=== PATIENT | female | born 1955 | race Two or more races ===

== ENCOUNTER → 2019-12-28 | Outpatient (CLI) | payer OTHER ==
[2019-12-28 13:36] LABS: Basophils # (auto) 0.1 10 ^3/uL (0-0.2); Eosinophils # (auto) 0.3 10 ^3/uL (0-0.8); Eosinophils % (auto) 4.7 % (0.0-7.0); Hematocrit 40.1 % (36.0-46.0); Lymphocytes # (auto) 1.7 10 ^3/uL (0.4-5.4); Lymphocytes % (auto) 30.6 % (10.0-50.0); Mean Corpuscular Hemoglobin 32.3 pg (28.0-32.0); Mean Corpuscular Volume 92.4 fL (80.0-100.0); Monocytes # (auto) 0.6 10 ^3/uL (0-1.3); Monocytes % (auto) 10.1 % (0.0-12.0); Neutrophils % (auto) 53.6 % (37.0-80.0); Nucleated Red Blood Cells % 0.1 %; Platelet Count (auto) 307 10^3/uL (140-450); Red Blood Cells 4.34 10^6/uL (4.0-5.20); Red Cell Distribution Width 12.9 % (11.8-14.3); White Blood Cell 5.5 10^3/uL (4.4-10.8)
[2019-12-28 13:44] LABS: Urine Bacteria FEW /hpf (None Seen); Urine Blood Negative /uL (Negative); Urine Specific Gravity 1.016 (1.001-1.035); Urine WBC 1 /hpf (0 - 5)
[2019-12-28 14:00] LABS: Albumin 3.9 g/dL (3.4-5.0); Calcium 9.5 mg/dL (8.5-10.1); Potassium 4.1 mmol/L (3.5-5.1)
[2019-12-28 14:04] LABS: BUN/Creatinine Ratio 12.3; Bilirubin, Total 0.4 mg/dL (0.2-1.0); Total Protein 7.6 g/dL (6.4-8.2)
== END | disposition home or self-care (01) ==
LOC: LAB 13:04
PROVIDERS: ATTEND Internal Medicine Nephrology
DX: I10 Essential (primary) hypertension (principal); R01.1 Cardiac murmur, unspecified
CPT/HCPCS: 36415; 80053; 80061; 81001; 84443; 85025

== ENCOUNTER 2020-07-24 09:26 | Inpatient (IN) | payer MEDICAID, OTHER ==
[~2020-07-24] VITALS: Ht 165.1 cm; Wt 63.9 kg
[2020-07-24] MEDS ORDERED: cefTRIAXone 1GM/50ML D5W 50 ML IV ONE (10:15)
[2020-07-24] MEDS ORDERED: AZITHROMYCIN 500MG/ 250ML 250 ML IV ONE (10:15)
[2020-07-24 11:17] LABS: Basophils # (auto) 0.1 10 ^3/uL (0-0.2)
[2020-07-24 11:23] LABS: Basophils % (auto) 0.3 % (0.0-2.0); Eosinophils # (auto) 0 10 ^3/uL (0-0.8); Eosinophils % (auto) 0.2 % (0.0-7.0); Hematocrit 39.3 % (36.0-46.0); Lymphocytes # (auto) 0.6 10 ^3/uL (0.4-5.4); Mean Corpuscular Hgb Conc. 33.1 g/dL (32.0-36.0); Mean Corpuscular Volume 93.6 fL (80.0-100.0); Monocytes # (auto) 0.9 10 ^3/uL (0-1.3); Neutrophils # (auto) 13.5 10 ^3/uL (1.6-8.6); Neutrophils % (auto) 89.5 % (37.0-80.0); Nucleated Red Blood Cells % 0.2 %; Platelet Count (auto) 475 10^3/uL (140-450); Red Cell Distribution Width 14.3 % (11.8-14.3); White Blood Cell 15.1 10^3/uL (4.4-10.8)
[2020-07-24 11:39] LABS: Chloride 104 mmol/L (98-107); Potassium 3.2 mmol/L (3.5-5.1); Sodium 136 mmol/L (136-145)
[2020-07-24 11:45] LABS: INR 1.18 (0.9-1.15); Partial Thromboplastin Time 25.3 sec (23.0-31.2)
[2020-07-24 11:51] LABS: Lactic Acid w/Reflex 2.1 mmol/L (0.4-2.0)
[2020-07-24 11:53] LABS: Alanine Aminotransferase 23 U/L (13-56); Albumin 2.2 g/dL (3.4-5.0); Alkaline Phosphatase 83 U/L (45-117); Anion Gap 8 (5-15); Aspartate Aminotransferase 33 U/L (15-37); BUN/Creatinine Ratio 17.5; Bilirubin, Total 0.5 mg/dL (0.2-1.0); Blood Urea Nitrogen 10 mg/dL (7-18); Calcium 8.7 mg/dL (8.5-10.1); Carbon Dioxide 24 mmol/L (21-32); GFR African American 138 mL/min; GFR Non-African American 114 mL/min; Glucose 217 mg/dL (74-106); Total Protein 7.2 g/dL (6.4-8.2)
[2020-07-24] MEDS ORDERED: SODIUM CHLORIDE 0.9% 1,000 ML IV ONE (13:15)
[2020-07-24] MEDS ORDERED: VANCOMYCIN PER PHARMACY 0 MG IV SCH (13:15)
[2020-07-24] MEDS ORDERED: MORPHINE SULF INJ 2 MG/ML SYRINGE 1ML IV PRN (13:15)
[2020-07-24] MEDS ORDERED: NITROGLYCERIN 0.4 MG SL TAB SL PRN (13:15)
[2020-07-24] MEDS ORDERED: VANCOMYCIN 1GM/250ML 250 ML IV ONE (13:45)
[2020-07-24] MEDS ORDERED: ACETAMINOPHEN 500 MG TAB PO PRN (14:30)
[2020-07-24] MEDS ORDERED: ONDANSETRON HCL 4 MG/2 ML VIAL IV PRN (14:30)
[2020-07-24] MEDS ORDERED: POTASSIUM EFFERVESENT TAB 25 MEQ ONE (14:39)
[2020-07-24] MEDS ORDERED: POTASSIUM EFFERVESENT TAB 25 MEQ PO ONE (14:45)
[2020-07-24 15:13] VITALS: BP 152/62
[2020-07-24 18:05] VITALS: BP 156/65
[2020-07-24] MEDS: methylPREDNISolone SOD SUCC 40 MG/ML VL IV SCH ×2 (18:33→23:46)
[2020-07-24] MEDS: LORazepam 2MG/ML-1ML VIAL IV PRN (18:34)
[2020-07-24] MEDS: ALBUTEROL SULF 2.5 MG/0.5ML(0.5%) NEB SOLN NEB SCH (19:15)
[2020-07-24] MEDS: PIPERACILLIN-TAZOB 3.375GM 100 ML IV SCH ×2 (20:56→23:46)
--- NOTE | 2020-07-24 22:45 | NUR ---
RECEIVED PATIENT FROM ED TO [facility] ROOM 261 RECEIVED PATIENT BY BED ON PORTABLE OXYGEN AND HEMODYNAMIC MONITOR, TRANSPORTED BY PRIVATE DUTY NURSE AND ATTENDING RT. TRANSFERRED FROM ONE BED TO ANOTHER WITH MINIMUM ASSISTANCE, NOTED INCREASED SOB WITH ACTIVITY, RR 29. PATIENT WAS PLACED ON 12L OXYMIZER WALL, SPO2 92%. PATIENT ORIENTED TO SURROUNDINGS, PLACED ON HEMODYNAMIC MONITOR, EDUCATED PATIENT ON HOW TO USE CALL LIGHT, PATIENT VERBALIZED UNDERSTANDING. PERFORMED ASSESSMENT, EDUCATED ON POC, AOX4. PATIENT PATIENT REPORTED CHRONIC DULL PAIN LOCALIZED TO NECK 3/10 STATED IT IS FROM [place]TH[place], DOES NOT WANT ANY PAIN MEDICATION AT THIS TIME. BED IN LOWEST POSITION, BED RAILS X2, SET UP YANKER, EDUCATED HER ON HOW TO USE IT. PLACED ON AIRBORNE ISO PRECAUTION WHILE COVID RESULTS ARE PENDING, PATIENT VERBALIZED UNDERSTANDING FOR ISOLATION REASONS. WENT OVER PATIENTS BELONGING WITH PATIENT, ALL BELONGINGS ARE WITH HER EXCEPT FOR CHARGING WIRE, WILL CONTACT ED. WILL CONTINUE TO MONITOR, PATIENT IS VISUALIZED FROM NURSING STATION AT ALL TIMES.
[2020-07-24 22:46] VITALS: BP 159/68
[2020-07-24 23:00] VITALS: BP 157/68
[2020-07-24 23:15] VITALS: BP 190/85
[2020-07-24 23:30] VITALS: BP 159/65
[2020-07-25] VITALS (13 sets, daily range): BP systolic 112–178; BP diastolic 54–93
--- NOTE | 2020-07-25 01:06 | NUR ---
PATIENT DESATURATING LOW 60% WITH PHYSICAL ACTIVITY PATIENT TRANSFERRED TO BEDSIDE COMMODE WITH MINIMUM ASSISTANCE. HR WENT HIGH 120 AND SPO2 DROPPED LOW 60'S WITH GOOD WAVEFORM. TAKES ABOUT 10 MIN TO RECOVER BACK TO 90%. HOB 45 DEGREES. CLEAR LUNG SOUNDS. NOTED SHORTNESS OF BREATH WITH ACTIVITY, NON LABORED BREATHING. Addendum: 07/25/20 at 0112 by JOSE PEREZ RN ADDITIONAL INFORMATION, PATIENT IS ON 12L OXYMIZER.
[2020-07-25] MEDS: VANCOMYCIN 1GM/250ML 250 ML IV SCH ×2 (03:00→19:06)
[2020-07-25 03:20] LABS: Basophils # (auto) 0 10 ^3/uL (0-0.2); Basophils % (auto) 0.1 % (0.0-2.0); Eosinophils # (auto) 0 10 ^3/uL (0-0.8); Hematocrit 36.1 % (36.0-46.0); Hemoglobin 11.7 g/dL (12.2-16.2); Lymphocytes # (auto) 0.5 10 ^3/uL (0.4-5.4); Lymphocytes % (auto) 3.5 % (10.0-50.0); Mean Corpuscular Hemoglobin 29.9 pg (28.0-32.0); Mean Corpuscular Hgb Conc. 32.5 g/dL (32.0-36.0); Mean Corpuscular Volume 91.8 fL (80.0-100.0); Monocytes # (auto) 0.3 10 ^3/uL (0-1.3); Monocytes % (auto) 2.1 % (0.0-12.0); Neutrophils # (auto) 12.5 10 ^3/uL (1.6-8.6); Neutrophils % (auto) 94.3 % (37.0-80.0); Platelet Count (auto) 442 10^3/uL (140-450); Red Blood Cells 3.93 10^6/uL (4.0-5.20); Red Cell Distribution Width 14.4 % (11.8-14.3); White Blood Cell 13.2 10^3/uL (4.4-10.8)
[2020-07-25 03:37] LABS: Albumin 2.1 g/dL (3.4-5.0); Potassium 3.4 mmol/L (3.5-5.1)
[2020-07-25 03:42] LABS: BUN/Creatinine Ratio 14.5; Bilirubin, Total 0.5 mg/dL (0.2-1.0); Total Protein 6.8 g/dL (6.4-8.2)
[2020-07-25] MEDS: methylPREDNISolone SOD SUCC 40 MG/ML VL IV SCH ×3 (05:42→13:55)
[2020-07-25] MEDS: PIPERACILLIN-TAZOB 3.375GM 100 ML IV SCH ×3 (05:43→19:07)
[2020-07-25] MEDS: ALBUTEROL SULF 2.5 MG/0.5ML(0.5%) NEB SOLN NEB SCH ×3 (06:32→12:39)
--- NOTE | 2020-07-25 06:39 | NUR ---
RT AT BEDSIDE BREATHING TREATMENT
--- NOTE | 2020-07-25 06:40 | NUR ---
PATIENT SLEEPING PATIENT SLEPT FROM ABOUT 0200 TO 0600, SPO2 MAINTAINED AT 93% 12L OXYMIZER.
--- NOTE | 2020-07-25 06:48 | NUR ---
ADMISSION NOTE PER PATIENT KIRILL (GRAND DAUGHTER [phone]) CAN PROVIDE MEDICATION LIST. PATIENT CAN NOT ANSWER WHICH IMMUNIZATION SHE GOT BEFORE.
--- NOTE | 2020-07-25 07:10 | NUR ---
PATIENT DESATURATED TO LOW 60 PATIENT WAS TRANSFERRED TO BEDSIDE COMMODE WHERE SHE DESATURATED TO LOW 60, HR INCREASED ABOVE 110'S. OXYMIZER INCREASED TO 15L FROM 12L, SOB WORSENS WITH ACTIVITY. CONTINUE MONITORING.
--- NOTE | 2020-07-25 08:29 | NUR ---
PAGED DR. MYLES ASKING IF IT WAS OK TO INSERT A FC TO PT. TO DECREASE OXYGEN DEMAND. I INFORM HIM THAT PT IS ON OXYMIZER AND PT DESATURATES TO THE LOW 70'S WHEN GETTING OUT OB BED TO URINATE TO BSC WHICH IS QUITE FREQUENTLY.
--- NOTE | 2020-07-25 08:50 | NUR ---
Respiratory note: PT PLACED ON HFNC PER DR SEXTON ORDER. 60L FLOW, 100%. WATER LEVEL ADEQUATE. PT DISLIKES THE HIGH FLOW, HOWEVER PREFERS HFNC, RATHER THAN BIPAP. PT TOLERATING BIPAP WELL. RN AWARE. WILL CONTINUE TO MONITOR PT.
[2020-07-25] MEDS ORDERED: POTASSIUM CHLORIDE 40 MEQ, LIDOCAINE 1% (LOCAL ANESTH.) 4 ML in SODIUM CHL 0.9% 250 ML IV ONE (09:00)
[2020-07-25] MEDS: LORazepam 2MG/ML-1ML VIAL IV PRN ×2 (09:08→20:31)
[2020-07-25] MEDS: MORPHINE SULF INJ 2 MG/ML SYRINGE 1ML IV PRN ×2 (09:39→12:19)
[2020-07-25] MEDS: LISINOPRIL 10 MG TAB PO SCH (09:44)
[2020-07-25] MEDS: FAMOTIDINE (10MG/ML) 2ML VL IV SCH (09:44)
--- NOTE | 2020-07-25 09:54 | NUR ---
PT NPO FOR CT ANGIO WITH CONTRAST
--- NOTE | 2020-07-25 09:54 | NUR ---
16 FR FC INSERTED PT TOLERATED WELL.
[2020-07-25] MEDS ORDERED: ENOXAPARIN SOD 40 MG/0.4 ML SYRINGE SC SCH (10:00)
[2020-07-25] MEDS ORDERED: FUROSEMIDE 20 MG/2 ML VIAL IV ONE (11:30)
--- NOTE | 2020-07-25 11:51 | NUR ---
ASSISTED TO PRONING PT WAS DESATURATING DUE TO HIGH FLOW POPPING OUT OF PLACE AND SHE WAS NOT RECEIVING OXYGENATION. I PLACE HER IN HIGH FLOW AND IT TOOK HER A WHILE TO RECOVER. CT WILL BE DOWN FOR ONE WEEK. DR. DARSHAN KINNEY.
--- NOTE | 2020-07-25 12:42 | NUR ---
COVID TEST COLLECTED AND SENT TO LAB. PT IS ISOLATED FOR COVID.
--- NOTE | 2020-07-25 16:00 | NUR ---
DR. MYLES IN TO SEE PT. I UPDATED HIM ON PT'S CONDITION. NO NEW ORDERS RECEIVED AT THIS TIME.
--- NOTE | 2020-07-25 17:30 | NUR ---
PATIENT APPEARS UNSTABLE FOR CT CHEST - ON HIGH FLOW FIO2 100% FIO2 AND 60L O2, SPOKE TO DELMY JARVIS - AGREES WITH MECHANICAL ENGINEERING INTERN.
--- NOTE | 2020-07-25 19:40 | NUR ---
OPENING NOTE REPORT RECEIVED FROM MIGUEL RN. THIS IS A POSITIVE COVID PATIENT ON NOVEL RESPIRATORY ISOLATION. PATIENT IS A/OX3 WITH PERIODS OF CONFUSION. PATIENT CONNECTED TO BEDSIDE MONITORS, HEART RATE IN LOW 100'S, SPO2 IN LOW 90'S. PATIENT IS ON HIGH FLOW NASAL CANNULA 70L, FIO2 100%. PHYSICAL ASSESSMENT DONE-SEE INTERVENTIONS. TELLEZ IN PLACE DRAINING CLEAR YELLOW URINE TO GRAVITY. SKIN INTACT. RIGHT FOREARM SKIN LESION NOTED, INTACT. PERIPHERAL IV TO LEFT HAND INTACT AND PATENT. POC DISCUSSED WITH PATIENT, ALL QUESTION ANSWERED, FALL PRECAUTIONS IN PLACE.
--- NOTE | 2020-07-25 20:35 | NUR ---
FAMILY PATIENTS GRAND DAUGHTER CALLED. CORRECT PASSWORD GIVEN. UPDATE GIVEN ON PATIENT STATUS, ALL QUESTIONS ANSWERED.
--- NOTE | 2020-07-25 21:25 | NUR ---
NONCOMPLIANT PATIENT KEEPS REMOVING HIGH FLOW NASAL CANNULA AND DESATURATES DOWN TO LOW 70'S AND EVEN 60'S. THIS RN KEEPS DONNING PPE AND ENTERING PATIENTS ROOM TO REMIND HER TO LEAVE OXYGEN ON PATIENT BECOMES INCREASINGLY CONFUSED, BUT EASILY REORIENTS
--- NOTE | 2020-07-25 21:38 | NUR ---
REMOVING TUBING PATIENT REMOVED HFNC AGAIN. PATIENT BEGAN DESATURATING INTO LOW 60'S. HFNC PLACED BACK ON PATIENT. PATIENT IS CONFUSED AND IS PULLING OFF GOWN, STATING, "I NEED TO GET ALL OF THIS OFF SO I CAN GET MY HAIRCUT". PATIENT REORIENTED TO TIME/PLACE/SITUATION. PATIENT VERBALIZED UNDERSTANDING. EDUCATED PATIENT TO KEEP ON HFNC. PATIENT VERBALIZED UNDERSTANDING
--- NOTE | 2020-07-25 21:57 | NUR ---
NONCOMPLIANT PATIENT REMOVING HFNC. FOUND PATIENT OUT OF BED AND ON BEDSIDE COMMODE. PATIENT HAD A LARGE BROWN BOWEL MOVEMENT ON THE FLOOR. PATIENT SITTING ON COMMODE WITH HIGH FLOW NASAL CANNULA OFF, LEADS DISCONNECTED AND O2 SENSOR OFF. PATIENT WAS SHORT OF BREATH, WITH VISIBLE TACHYPNEA. THIS RN IMMEDIATELY PLACED PATIENT BACK ON HFNC, AND ALL LEADS AND SENSORS APPLIED ON PATIENT. SPO2 IN 50'S. HELPED PATIENT BACK INTO BED AFTER QUICK DIANNA CARE PERFORMED. PATIENT PLACED IN HIGH FOWLERS POSITION. SPO2 SLOW TO RISE. RT PAGED SINCE PATIENT IS MAXED OUT ON HFNC AND SATS IN LOW 80'S. PATIENT TAKING A LONG TIME TO RECOVER.
[2020-07-25] MEDS ORDERED: ALBUTEROL SULF HFA 90MCG INH 200DOSE IN SCH (22:00)
[2020-07-25] MEDS ORDERED: REMDESIVIR 200 MG in NS 210ml LOADING DOSE ADULT IV ONE (22:00)
--- NOTE | 2020-07-25 22:05 | NUR ---
RESTRAINT ORDER CALLED AND SPOKE WITH MD. COVERING FOR DR.SREE LOPEZ. UPDATED MD ON PATIENT PULLING OFF HIGH FLOW NASAL CANNULA, ATTEMPTING TO GET OUT OF BED, AND BEING CONFUSED. ATTEMPTED REORIENTATION MULTIPLE TIMES, EDUCATED PATIENT ON DANGERS OF REMOVING HIGH FLOW NASAL CANNULA. PATIENT MOMENTARILY AGREES, BUT THEN BECOMES RESTLESS AND CONFUSED AND REMOVES HFNC. SPO2 LEVELS REACHING LOW 50'S BY THE TIME THIS RN IS ABLE TO DON PPE AND ENTER ROOM. MD AWARE THAT PATIENT IS A DANGER TO SELF. NEW TELEPHONE ORDER RECEIVED FOR BILATERAL WRIST SOFT RESTRAINTS. PER MD, THIS ORDER IS ONLY FOR 12 HOURS. ORDER READ BACK AND VERIFIED WITH MD.
[2020-07-25] MEDS: ENOXAPARIN SOD 80 MG/0.8ML SYRINGE SC SCH (22:12)
--- NOTE | 2020-07-25 23:22 | NUR ---
AGITATED/CONFUSED PATIENT INCREASINGLY AGITATED, KEEPS TRYING TO REMOVE HIGH FLOW CANNULA AND RESTRAINTS. PATIENT KEEPS TRYING TO GET OUT OF BED. PATIENT DESATURATING TO 70'S. REORIENTED PATIENT TO TIME/PLACE/SITUATION. PATIENT SHOWING CONFUSION, STATES SHE IS "IN THE DOG POUND WITH ALL THE DOGS" AND SHE IS "WAITING TO GET A HAIRCUT". REORIENTED PATIENT OF SITUATION AND WHERE SHE IS AT. PATIENT NODDED IN AGREEMENT.
--- NOTE | 2020-07-25 23:42 | NUR ---
NEW ORDER CALLED AND SPOKE WITH COVERING MD REGARDING PATIENT STATUS. UPDATED MD ON PATIENT BEING MORE CONFUSED AND ATTEMPTING TO REMOVE HIGH FLOW DESPITE RESTRAINTS. UPDATED MD THAT PATIENTS CURRENT SPO2 IS IN THE 70'S AND SUSTAINING. ATIVAN ORDER IS EVERY 8H AND WAS GIVEN JUST 3 HOURS AGO. NEW ORDER OBTAINED FOR ONE TIME ATIVAN 0.5MG IV NOW. PER MD, IF PATIENT REMAINS HYPOXIC, SHE WILL NEED TO BE INTUBATED.
[2020-07-25] MEDS ORDERED: LORazepam 2MG/ML-1ML VIAL IV ONE (23:45)
[2020-07-26] VITALS (84 sets, daily range): BP systolic 74–141; BP diastolic 41–80
--- NOTE | 2020-07-26 00:15 | NUR ---
DESATURATION PATIENT ONCE AGAIN REMOVED HIGH FLOW NASAL CANNULA. PATIENT WAS CONFUSED UPON THIS RN ENTERING ROOM. PATIENT SPO2 IN 60'S. PATIENT SPO2 SLOW TO RISE. PATIENT VERY CONFUSED AND STATES, "I NEED TO TAKE MY CLOTHS OFF TO GET MY HAIRCUT". REORIENTED PATIENT TO TIME/PLACE/SITUATION. PATIENT NEEDS REINFORCEMENT. PATIENT SPO2 IN LOW 80'S AND SUSTAINING. PATIENT ALREADY ON 70L AND FIO2 100% ON HIGH FLOW NASAL CANNULA. WILL PAGE RT.
[2020-07-26] MEDS: PIPERACILLIN-TAZOB 3.375GM 100 ML IV SCH ×4 (00:23→18:12)
--- NOTE | 2020-07-26 00:35 | NUR ---
AGITATED PATIENT STILL VERY RESTLESS. KEEPS TRYING TO REMOVE HFNC DESPITE BEING ON SOFT WRIST RESTRAINTS. SPO2 VERY LABILE, AND PATIENT DESATS WITH MOVEMENT. PATIENT IS ATTEMPTING TO GET OUT OF BED. PATIENT WAS SEEN KICKING LEGS OVER TO SIDE OF BED IN AN ATTEMPT TO GET UP. THIS RN WENT INTO PATIENTS ROOM AFTER DONNING PPE. TRIED TO CALM PATIENT DOWN AND EXPLAIN SITUATION. PATIENT IS CONFUSED AND STATES, "ARE YOU GOING TO SEE KATTY TODAY?". THIS RN ASKED PATIENT WHO SHE BELIEVES I AM, TO WHICH SHE RESPONDED, "YOU ARE MY DAUGHTERS FRIEND". REORIENTED PATIENT TO TIME/PLACE AND SITUATION. THIS RN EXPLAINED TO PATIENT THAT I AM HER NURSE AND SHE IS AT [facility]. PATIENT BEGAN TO LAUGH AND STATED, "I FEEL LIKE I MAY BE CONFUSED". THIS RN STAYED WITH PATIENT UNTIL SHE WAS VISIBLY MORE CALM.
--- NOTE | 2020-07-26 00:48 | NUR ---
RT PAGED PATIENT SATURATED INTO 60'S. PATIENT STILL TRYING TO REMOVE HIGH FLOW NASAL CANNULA. REORIENTATION PROVIDED. EDUCATED PATIENT ON DANGERS OF LOW OXYGEN LEVELS. PATIENT VERBALIZED UNDERSTANDING.
[2020-07-26] MEDS ORDERED: ETOMIDATE (2MG/ML) 20ML VIAL IV ONE (00:59)
[2020-07-26] MEDS ORDERED: SUCCINYLCHOLINE CHLORIDE 20 MG/ML 10ML VIAL IV ONE (01:01)
--- NOTE | 2020-07-26 01:13 | NUR ---
Respiratory note: INTUBATED PT AT THIS TIME WITH Kel GONSALES SECRET SERVICE AGENT AT BEDSIDE, PT INTUBATED SUCCESSFULLY ON FIRST ATTEMPT WITH SIZE 7.5 ETT SECURED WITH PINA AT 23CM AT THE LIP. GOOD COLOR CHANGE ON EZCAP NOTED, BILATERAL BS NOTED.
--- NOTE | 2020-07-26 01:15 | NUR ---
PT INTUBATED RT DARÍO AT BEDSIDE WELCOME CENTER ATTENDANT ILDA AT BEDSIDE THIS RN AT BEDSIDE 0111- ETOMIDATE 20MG GIVEN 0112-SUCC. 80MG GIVEN 0113-PATIENT INTUBATED BY RT DARÍO. ETT 7.5, 23 @ THE LIP VERBAL ORDER OBTAINED FROM WELCOME CENTER ATTENDANT ILDA TO START VERSED GTT PATIENT BEGINS TO WAKE UP
--- NOTE | 2020-07-26 01:20 | NUR ---
Respiratory note: PLACED PT ON V17 VENT AT THIS TIME WITH WITH THE ORDERED SETTINGS, AC RR 14 VT 450 PEEP 5 FIO2 100%. ALARMS SET AND AUDIBLE WITH VENT PLUGGED INTO RED OUTLET.
[2020-07-26] MEDS ORDERED: MIDAZOLAM DRIP 50 mg/50mL 50 ML IV ONE (01:26)
[2020-07-26] MEDS ORDERED: PROPOFOL 100 ML IV ONE (01:36)
[2020-07-26] MEDS: MIDAZOLAM DRIP 50 mg/50mL 50 ML IV SCH ×5 (01:41→21:34)
[2020-07-26] MEDS: PROPOFOL 100 ML IV SCH (02:00)
--- NOTE | 2020-07-26 02:15 | NUR ---
PT SEDATED: REMOVED RESTRAINTS.
--- NOTE | 2020-07-26 02:15 | NUR ---
RESTRAINTS REMOVED FROM PATIENT PATIENT NOW SEDATED/INTUBATED AND IN ICU
--- NOTE | 2020-07-26 02:16 | NUR ---
ICU MORGAN CRUM transferred to ICU via ICU bed on polishing machine tender, and RT bagging patient. COVID precautions in place during time of transfer. Patient transferred to bed 103, connected to ICU monitoring and mechanical vent set up by RT Fariba at bedside. RN Romero to assume care of patient now. Patient on Versed gtt at 3 and Propofol gtt at 20.
--- NOTE | 2020-07-26 03:03 | NUR ---
SBAR/REPORT REPORT ENDORSED TO STEPHANIE NOVOA TO ASSUME CARE OF PATIENT PATIENT ON VERSED AND PROPOFOL SEDATIONS-SEE IV SPREADSHEET
--- NOTE | 2020-07-26 03:10 | NUR ---
NOTIFIED RT TO VIEW CXR, ET TUBE APPEARS TO HIGH, RT SAID HE WOULD COME BACK AND ADVANCE ET TUBE.
--- NOTE | 2020-07-26 03:13 | NUR ---
FAMILY CALLED AND SPOKE WITH KIRILL, PATIENTS GRAND DAUGHTER LISTED IN CHART. UPDATE GIVEN TO FAMILY REGARDING NEW INTUBATION STATUS, ALL QUESTIONS ANSWERED.
--- NOTE | 2020-07-26 04:03 | NUR ---
RT @ BEDSIDE DOING ABG, RT STATED HE WOULD ADVANCE ET TUBE TO 24 @ THE LIP. Addendum: 07/26/20 at 0404 by Romero Wheatley RN HE SAID SPUTUM ALREADY SENT TO LAB.
--- NOTE | 2020-07-26 04:17 | NUR ---
Respiratory note: INCREASED PEEP TO 8 AND VT TO 500 AT THIS TIME
[2020-07-26] MEDS ORDERED: fentaNYL Drip 2500mCg/250mlNS 250 ML IV ONE (04:20)
[2020-07-26] MEDS ORDERED: NOREPINEPHRINE 8 MG/250ML KIT 250 ML IV ONE (04:36)
[2020-07-26 04:45] LABS: Eosinophils # (auto) 0 10 ^3/uL (0-0.8); Hematocrit 38.5 % (36.0-46.0); Monocytes # (auto) 1.5 10 ^3/uL (0-1.3); Neutrophils # (auto) 18.6 10 ^3/uL (1.6-8.6); Platelet Count (auto) 471 10^3/uL (140-450)
[2020-07-26 04:50] LABS: Basophils # (auto) 0 10 ^3/uL (0-0.2); Basophils % (auto) 0.1 % (0.0-2.0); Hemoglobin 12.7 g/dL (12.2-16.2); Lymphocytes # (auto) 0.4 10 ^3/uL (0.4-5.4); Lymphocytes % (auto) 2.1 % (10.0-50.0); Mean Corpuscular Hemoglobin 30.4 pg (28.0-32.0); Mean Corpuscular Volume 92.2 fL (80.0-100.0); Monocytes % (auto) 7.2 % (0.0-12.0); Neutrophils % (auto) 90.6 % (37.0-80.0); Nucleated Red Blood Cells % 0.1 %; Red Blood Cells 4.17 10^6/uL (4.0-5.20); Red Cell Distribution Width 14.9 % (11.8-14.3); White Blood Cell 20.5 10^3/uL (4.4-10.8)
[2020-07-26 05:00] LABS: INR 1.17 (0.9-1.15); Partial Thromboplastin Time 28.4 sec (23.0-31.2)
[2020-07-26] MEDS: fentaNYL Drip 2500mCg/250mlNS 250 ML IV SCH ×2 (05:15→18:35)
[2020-07-26] MEDS: NOREPINEPHRINE 8 MG/250ML KIT 250 ML IV SCH ×3 (05:15→21:00)
[2020-07-26] MEDS: VANCOMYCIN 1GM/250ML 250 ML IV SCH ×2 (05:19→14:26)
[2020-07-26 05:21] LABS: Albumin 2.3 g/dL (3.4-5.0); Bilirubin, Total 0.4 mg/dL (0.2-1.0); Calcium 8.5 mg/dL (8.5-10.1); Total Protein 7.2 g/dL (6.4-8.2)
--- NOTE | 2020-07-26 07:09 | NUR ---
REPORT RECEIVED FROM DATA MINING ANALYST RN
--- NOTE | 2020-07-26 07:12 | NUR ---
IV INFILTRATION NOTED TO LEFT WRIST WITH LEVOPHED INFUSING AT 12 MCG/MIN. IV IMMEDIATELY REMOVED AND NITRO PASTE APPLIED TO SKIN PER PROTOCOL
[2020-07-26] MEDS: ALBUTEROL SULF 2.5 MG/0.5ML(0.5%) NEB SOLN NEB SCH ×3 (07:16→22:09)
[2020-07-26] MEDS ORDERED: NITROGLYCERIN 2% OINT 1GM PKG TD ONE ×2 (08:10→08:30)
--- NOTE | 2020-07-26 08:24 | NUR ---
DR. MYLES PAGED AWAITING CALLBACK
--- NOTE | 2020-07-26 09:00 | NUR ---
HELD SEDATION VACATION PATIENT IS INTUBATED 100% FIO2 PEEP OF 8 SPO2 90 TO 93%. SEDATION VACATION HELD. WILL CONTINUE TO REASSESS.
[2020-07-26] MEDS: ENOXAPARIN SOD 80 MG/0.8ML SYRINGE SC SCH ×2 (09:34→22:00)
[2020-07-26] MEDS: LISINOPRIL 10 MG TAB PO SCH (09:34)
[2020-07-26] MEDS: methylPREDNISolone SOD SUCC 40 MG/ML VL IV SCH (09:34)
[2020-07-26] MEDS: FAMOTIDINE (10MG/ML) 2ML VL IV SCH (09:34)
[2020-07-26] MEDS: POTASSIUM CHL 20MEQ/100ML 100 ML IV SCH ×2 (09:34→11:15)
[2020-07-26] MEDS ORDERED: FUROSEMIDE 20 MG/2 ML VIAL IV SCH (10:00)
--- NOTE | 2020-07-26 10:00 | NUR ---
DID NOT REPOSITION PATIENT AT THIS TIME DID NOT REPOSITION PATIENT AT THIS TIME. SPO2 IS 90% TO 93% ON FIO2 OF 100% PEEP OF 10. WILL CONTINUE TO REASSESS AND TURN TOLERATED.
[2020-07-26] MEDS ORDERED: DexAMETHasone SOD PHOS 10MG/1ML VIAL INJ IV ONE (12:00)
[2020-07-26] MEDS ORDERED: LIDOCAINE 1% (LOCAL ANESTH.) PF 5ml SDV ID ONE (12:45)
--- NOTE | 2020-07-26 12:45 | NUR ---
PICC line placement Patient significant other educated on need for PICC line placement. All risks and benefits explained and all questions and concerns addressed prior to procedure. Noted past medical history and allergies with no contraindications. INR and Plt counts within acceptable range. 5 fr PICC line inserted via RIGHT BASILIC vein using [employer] US and Tip Location System. Sterile technique with maximum barrier precautions utilized. Blood return obtained from each of THE THREE lumens and each flushed easily with NS using proper technique. PICC secured with Stat-lock; biodisc and occlusive dressing applied. Stat portable chest x-ray obtained for PICC tip placement. PRIMARY STEPHANIE OTTO AWARE. Baseline Arm Circumference 28 CM INTERNAL LENGTH 35 CM EXTERNAL LENGTH 0 CM PICC lot # [id number]
--- NOTE | 2020-07-26 13:25 | NUR ---
OK to use PICC line Xray completed. OK to use PICC.
[2020-07-26] MEDS ORDERED: CHOLECALCIFEROL (VITD3) 2,000 UNIT CAP PO ONE (15:00)
[2020-07-26] MEDS ORDERED: ZINC SULFATE 220mg CAP or TAB PO ONE (15:00)
[2020-07-26] MEDS ORDERED: ASCORBIC ACID 500 MG TAB PO ONE (15:00)
--- NOTE | 2020-07-26 15:15 | NUR ---
SPOKE WITH FAMILY Jake DUFF SPOKE WITH FAMILY OVER THE PHONE. UPDATED FAMILY ON PATIENTS STATUS AND PLAN OF CARE. FAMILY INFORMED ONE OF THEIR FAMILY MEMBERS RECENTLY FROM COVID 19. FAMILY WOULD LIKE TO SEE HOW THE PATIENTS HEALTH STATUS PROGRESSES WITHIN THE NEXT COUPLE OF DAYS AND DEPENDING ON HOW THE PATIENTS HEALTH STAUS PROGRESSES FAMILY WILL THEN CONSIDER A POSSIBLE TERMINAL EXTUBATION.
[2020-07-26] MEDS: REMDESIVIR 100mg in NS 230ml DAILYx4DAYS (NO VENT) IV SCH (16:58)
--- NOTE | 2020-07-26 19:30 | NUR ---
OPENING SHIFT RECEIVED REPORT FROM DAY SHIFT RN. ASSUMED CARE OF PATIENT. PATIENT INTUBATED AND SEDATED WITH NO SIGNS OR SYMPTOMS OF SOB, PAIN OR DISTRESS. HYPOACTIVE COUGH AND GAG. RIGHT UPPER ARM PICC TLC, RIGHT FOREARM IV, LEFT WRIST IV AND LEFT ANTECUBITAL IV - CLEAN/DRY/INTACT. NITRO PATCH PLACED ON LEFT FOREARM DUE PREVIOUS IV INFILTRATION. TELLEZ HUNG TO GRAVITY - PATENT AND DRAINING. SEDATION: VERSED - 15MG/HR FENTANYL - 200MCG/HR PROPOFOL - 10MCG/KG/MIN VASOPRESSORS: LEVOPHED - 12MCG/MIN REPOSITIONED FOR COMFORT. BED IN LOWEST POSITION, SIDE RAILS UP X2. WILL CONTINUE TO MONITOR.
--- NOTE | 2020-07-26 21:10 | NUR ---
SPOKE WITH NIECE PASSWORD VERIFIED. UPDATED NIECE ON PLAN OF CARE AND PATIENT STATUS. ALL QUESTIONS AND CONCERNS ANSWERED AT THIS TIME.
[2020-07-26] MEDS: SODIUM CHLOR 0.9% PF (SALINE LOCK) 10ML VIAL/SYR IV SCH (22:00)
[2020-07-26] MEDS: FUROSEMIDE 40 MG/4 ML VIAL IV SCH (22:00)
--- NOTE | 2020-07-26 22:10 | NUR ---
RT AT BEDSIDE - FI02 TITRATED DOWN TO 90%, 02 SAT - 95%. WILL CONTINUE TO MONITOR.
--- NOTE | 2020-07-26 22:49 | NUR ---
SPOKE WITH BLOOD BANK UNABLE TO GIVE CONVALESCENT PLASMA. UNABLE TO OBTAIN MD SIGNATURE AT THIS TIME ON NEW FORM.
[2020-07-27] VITALS (99 sets, daily range): BP systolic 72–150; BP diastolic 37–68
[2020-07-27] MEDS: PIPERACILLIN-TAZOB 3.375GM 100 ML IV SCH ×4 (00:15→17:46)
--- NOTE | 2020-07-27 01:00 | NUR ---
PARTIAL BED BATH PARTIAL BED BATH PERFORMED. GOWN CHANGED. REPOSITIONED FOR COMFORT. SKIN REASSESSED AT THIS TIME. ORAL AND TELLEZ CARE PERFORMED.
[2020-07-27] MEDS: VANCOMYCIN 1GM/250ML 250 ML IV SCH ×3 (01:30→21:00)
[2020-07-27] MEDS: MIDAZOLAM DRIP 50 mg/50mL 50 ML IV SCH ×7 (01:38→23:30)
[2020-07-27 04:23] LABS: Basophils # (auto) 0 10 ^3/uL (0-0.2); Basophils % (auto) 0.2 % (0.0-2.0); Eosinophils # (auto) 0 10 ^3/uL (0-0.8); Hematocrit 36.2 % (36.0-46.0); Hemoglobin 11.4 g/dL (12.2-16.2); Lymphocytes # (auto) 0.4 10 ^3/uL (0.4-5.4); Lymphocytes % (auto) 2.2 % (10.0-50.0); Mean Corpuscular Hemoglobin 30.2 pg (28.0-32.0); Mean Corpuscular Hgb Conc. 31.6 g/dL (32.0-36.0); Mean Corpuscular Volume 95.8 fL (80.0-100.0); Monocytes # (auto) 1.2 10 ^3/uL (0-1.3); Monocytes % (auto) 7.6 % (0.0-12.0); Neutrophils # (auto) 14.6 10 ^3/uL (1.6-8.6); Platelet Count (auto) 502 10^3/uL (140-450); Red Blood Cells 3.78 10^6/uL (4.0-5.20); Red Cell Distribution Width 15.4 % (11.8-14.3); White Blood Cell 16.2 10^3/uL (4.4-10.8)
[2020-07-27 04:42] LABS: Potassium 4.7 mmol/L (3.5-5.1)
[2020-07-27 04:47] LABS: BUN/Creatinine Ratio 15.2; Bilirubin, Total 0.3 mg/dL (0.2-1.0); Calcium 7.4 mg/dL (8.5-10.1); Total Protein 6.7 g/dL (6.4-8.2)
[2020-07-27] MEDS: fentaNYL Drip 2500mCg/250mlNS 250 ML IV SCH ×2 (06:00→18:04)
[2020-07-27] MEDS: PROPOFOL 100 ML IV SCH (06:00)
--- NOTE | 2020-07-27 07:35 | NUR ---
END OF SHIFT REPORT GIVE TO DAY SHIFT RN. CARE ENDORSED.
--- NOTE | 2020-07-27 07:35 | NUR ---
REPORT RECEIVED FROM SANDING MACHINE OPERATOR OR TENDER NURSE. PATIENT RESTING IN BED AT THIS TIME INTUBATED AND SEDATED. RESPIRATIONS EVEN AND UNLABORED. NO SIGNS OF ACUTE DISTRESS NOTED. BED IN LOW POSITION. WILL CONTINUE TO MONITOR.
--- NOTE | 2020-07-27 08:07 | NUR ---
SPOKE TO DR SEXTON AND OBTAINED CONSENT FOR CONVALESCENT PLASMA ALSO REVIEWED ABG RESULTS. ALL ORDERS NOTED IN CHART.
--- NOTE | 2020-07-27 08:08 | NUR ---
Respiratory note: VENT CHANGES MADE PER DR. SEXTON. RATE INCREASED TO 18, VT INCREASED TO 550. WILL OBTAIN ABG IN 2 HOURS.
[2020-07-27] MEDS: ENOXAPARIN SOD 80 MG/0.8ML SYRINGE SC SCH ×2 (09:55→21:58)
[2020-07-27] MEDS: PANTOPRAZOLE 40 MG/10 ML VIAL INJ IV SCH (09:55)
[2020-07-27] MEDS: CHOLECALCIFEROL (VITD3) 2,000 UNIT CAP PO SCH (09:56)
[2020-07-27] MEDS: FUROSEMIDE 40 MG/4 ML VIAL IV SCH ×2 (09:56→21:58)
[2020-07-27] MEDS: ZINC SULFATE 220mg CAP or TAB PO SCH (09:57)
[2020-07-27] MEDS: ASCORBIC ACID 500 MG TAB PO SCH (09:57)
[2020-07-27] MEDS: DexAMETHasone SOD PHOS 10MG/1ML VIAL INJ IV SCH (09:58)
[2020-07-27] MEDS: SODIUM CHLOR 0.9% PF (SALINE LOCK) 10ML VIAL/SYR IV SCH ×2 (09:59→21:58)
--- NOTE | 2020-07-27 10:00 | NUR ---
DR SEXTON AT BEDSIDE TO ASSESS PATIENT AND DISCUSS PLAN OF CARE. ALL ORDERS NOTED IN CHART.
--- NOTE | 2020-07-27 10:00 | NUR ---
PERFORMED PARTIAL LINEN CHANGE, ORAL CARE, CATHETER CARE, AND DIANNA CARE
--- NOTE | 2020-07-27 10:00 | NUR ---
HELD SEDATION VACATION PATIENT IS CURRENTLY ON PEEP 0F 12 FIO2 70%. SPO2 93 TO 95%. WILL CONTINUE TO REASSESS Addendum: 07/27/20 at 1152 by Zonia Johnson RN Amended: Links added.
--- NOTE | 2020-07-27 10:26 | NUR ---
BLOOD TRANSFUSION CONVALESCENT PLASMA STARTED PER PROTOCOL. PATIENT TOLERATING WELL. NO SIGNS OF ADVERSE REACTIONS NOTED AT THIS TIME. WILL CONTINUE TO MONITOR.
[2020-07-27] MEDS: NOREPINEPHRINE 8 MG/250ML KIT 250 ML IV SCH (11:00)
--- NOTE | 2020-07-27 13:25 | NUR ---
blood transfusion Patient completed unit of convalescent plasma. Patient tolerated well with no noted adverse reactions.
--- NOTE | 2020-07-27 13:43 | NUR ---
assessment Patient is a 65 year old female who is on a vent in ICU. Per patients granddaughter Dea prior to admission patient was very independent. Per Dea patient lives home with her . Dea informed me patient had no need for DME. Dea informed patient is very active with her family and socially. Patient has no advanced directive or POA. Dea informed me she has no idea where patient could have gotten Covid 19. I informed Dea I will continue to monitor and follow up as appropriate for any post discharge needs. Patients discharge needs to be assessed after extubation. Dea verbalized understanding. Addendum: 07/27/20 at 1349 by Leilani MAYS Amended: Links added.
--- NOTE | 2020-07-27 16:20 | NUR ---
Nutrition Assessment Notes Please refer to link for full assessment notes. Est Energy needs: [id number] kcals (20-23 kcal/kgBW) Est Protein needs: 56-70 gms/day (0.8-1.0 gm/kgBW) Will continue to monitor and reassess prn. Addendum: 07/27/20 at [address] Amended: Links added.
[2020-07-27] MEDS: REMDESIVIR 100mg in NS 230ml DAILYx4DAYS (NO VENT) IV SCH (16:33)
[2020-07-27] MEDS ORDERED: DEXTROSE (50%) 50ML SYRG IV PRN (16:45)
[2020-07-27] MEDS: InsuLIN REG 1unit/0.01ml Soln (100units/ml) SC SCH (16:59)
[2020-07-27] MEDS: ACCU-CHEK COMFORT CURVE STRIP VI SCH (16:59)
--- NOTE | 2020-07-27 18:22 | NUR ---
SPOKE WITH THE PATIENTS GRANDDAUGHTER OVER THE PHONE. UPDATED HER ON THE PLAN OF CARE AND PATIENTS HEALTH STATUS.
--- NOTE | 2020-07-27 21:22 | NUR ---
2100 ANNA YANES - ANNA TROUGH: 24.2
--- NOTE | 2020-07-27 21:23 | NUR ---
OPENING SHIFT RECEIVED REPORT FROM DAY SHIFT RN. ASSUMED CARE OF PATIENT. PATIENT INTUBATED AND SEDATED WITH NO SIGNS OR SYMPTOMS OF SOB, PAIN OR DISTRESS. HYPOACTIVE COUGH AND GAG. RIGHT UPPER ARM PICC TLC, RIGHT FOREARM IV, LEFT ANTECUBITAL IV - CLEAN/DRY/INTACT. TELLEZ HUNG TO GRAVITY - PATENT AND DRAINING. SEDATION: VERSED - 15MG/HR FENTANYL - 200MCG/HR VASOPRESSORS: LEVOPHED - 4MCG/MIN REPOSITIONED FOR COMFORT. BED IN LOWEST POSITION, SIDE RAILS UP X2. WILL CONTINUE TO MONITOR. Addendum: 07/27/20 at 4 by RAND ERICKSON RN CORRECT TIME 1919
[2020-07-27] MEDS: ALBUTEROL SULF 2.5 MG/0.5ML(0.5%) NEB SOLN NEB SCH ×2 (22:00→22:53)
[2020-07-28] VITALS (70 sets, daily range): BP systolic 94–152; BP diastolic 40–65
[2020-07-28] MEDS: ACCU-CHEK COMFORT CURVE STRIP VI SCH ×4 (00:03→17:59)
[2020-07-28] MEDS: PIPERACILLIN-TAZOB 3.375GM 100 ML IV SCH ×4 (00:03→17:59)
[2020-07-28] MEDS: InsuLIN REG 1unit/0.01ml Soln (100units/ml) SC SCH ×4 (00:03→18:19)
--- NOTE | 2020-07-28 00:18 | NUR ---
BLOOD SUGAR - 426 / SPOKE WITH DR. GRACE MADE AWARE OF BLOOD SUGAR. RECEIVED NEW ORDERS TO DC INSULIN MILD SLIDING SCALE AND TO START INSULIN MODERATE SLIDING SCALE Q6H. TORB. WILL CONTINUE TO MONITOR.
[2020-07-28] MEDS: MIDAZOLAM DRIP 50 mg/50mL 50 ML IV SCH ×4 (02:00→14:18)
[2020-07-28] MEDS: PROPOFOL 100 ML IV SCH (02:00)
[2020-07-28 05:19] LABS: Basophils # (auto) 0 10 ^3/uL (0-0.2); Basophils % (auto) 0.3 % (0.0-2.0); Eosinophils # (auto) 0 10 ^3/uL (0-0.8); Hematocrit 35.8 % (36.0-46.0); Hemoglobin 11.8 g/dL (12.2-16.2); Lymphocytes # (auto) 0.3 10 ^3/uL (0.4-5.4); Lymphocytes % (auto) 3.3 % (10.0-50.0); Mean Corpuscular Hemoglobin 30.3 pg (28.0-32.0); Mean Corpuscular Hgb Conc. 32.9 g/dL (32.0-36.0); Mean Corpuscular Volume 92.1 fL (80.0-100.0); Monocytes # (auto) 0.8 10 ^3/uL (0-1.3); Monocytes % (auto) 8.1 % (0.0-12.0); Neutrophils # (auto) 8.3 10 ^3/uL (1.6-8.6); Neutrophils % (auto) 88.3 % (37.0-80.0); Nucleated Red Blood Cells % 0.1 %; Platelet Count (auto) 412 10^3/uL (140-450); Red Blood Cells 3.88 10^6/uL (4.0-5.20); Red Cell Distribution Width 14.7 % (11.8-14.3); White Blood Cell 9.5 10^3/uL (4.4-10.8)
[2020-07-28 05:36] LABS: Albumin 2.1 g/dL (3.4-5.0); Calcium 8.1 mg/dL (8.5-10.1); Potassium 3.7 mmol/L (3.5-5.1)
[2020-07-28 05:38] LABS: BUN/Creatinine Ratio 18.3; Bilirubin, Total 0.3 mg/dL (0.2-1.0); Total Protein 6.3 g/dL (6.4-8.2)
[2020-07-28] MEDS: fentaNYL Drip 2500mCg/250mlNS 250 ML IV SCH (05:48)
[2020-07-28] MEDS: ALBUTEROL SULF 2.5 MG/0.5ML(0.5%) NEB SOLN NEB SCH ×2 (06:00→22:29)
[2020-07-28] MEDS: VANCOMYCIN 1GM/250ML 250 ML IV SCH (07:18)
--- NOTE | 2020-07-28 07:18 | NUR ---
END OF SHIFT REPORT GIVEN TO DAY SHIFT RN. CARE ENDORSED.
[2020-07-28] MEDS: DexAMETHasone SOD PHOS 10MG/1ML VIAL INJ IV SCH (08:43)
[2020-07-28] MEDS: CHOLECALCIFEROL (VITD3) 2,000 UNIT CAP PO SCH (08:44)
[2020-07-28] MEDS: ENOXAPARIN SOD 80 MG/0.8ML SYRINGE SC SCH ×2 (08:44→22:00)
[2020-07-28] MEDS: ZINC SULFATE 220mg CAP or TAB PO SCH (08:44)
[2020-07-28] MEDS: PANTOPRAZOLE 40 MG/10 ML VIAL INJ IV SCH (08:44)
[2020-07-28] MEDS: ASCORBIC ACID 500 MG TAB PO SCH (08:45)
[2020-07-28] MEDS: SODIUM CHLOR 0.9% PF (SALINE LOCK) 10ML VIAL/SYR IV SCH ×2 (08:45→22:00)
[2020-07-28] MEDS: FUROSEMIDE 40 MG/4 ML VIAL IV SCH (08:45)
--- NOTE | 2020-07-28 08:55 | NUR ---
WOUND CARE NOTE: Wound care in to see patient per wound care request due to low Jim score of 13 and intubation status, putting patient to high risk for skin breakdown. Patient is 65 years old female with admitting diagnosis of Pna, Probable Sepsis. Patient is resting in ICU low air loss bed in . 103. Patient is intubated, sedated and mechanically ventilated. Patient appears to be in no pain using Cordon Arechiga Faces Pain Scale. STEPHANIE Enrique and a student nurse swimming coach at bedside giving patient's care, no wound noted other than dry , intact scab to patient's Rt forearm; no pressure injury noted. Patient is receiving BID/PRN cleaning and application of Barrier cream to sacral, buttocks as preventative with protective OPti foam sacral dressing to upper sacrum. RECOMMENDATION: Nursing to continue with BID/PRN cleaning and application of Barrier cream to sacral/buttocks as preventative, frequent turning and repositioning schedule as condition permits, redistribute pressure points with pillows, elevate heels on pillows, continue monitoring by wound care while patient is mechanically ventilated. Addendum: 07/28/20 at 1606 by Lin Espinal RN Amended: Links added.
--- NOTE | 2020-07-28 09:00 | NUR ---
SEDATION VACATION HELD PATIENT IS ON AN FIO2 OF 60% AND A PEEP OF 12 SPO2 93% TO 96%. WILL CONTINUE TO ASSESS Addendum: 07/28/20 at 1223 by Iva Garcia RN Amended: Links added.
--- NOTE | 2020-07-28 09:55 | NUR ---
CT ANGIO HELD PATIENT IS AT A PEEP OF 12 FIO2 60%, HAD A COUGHING SPELL WHERE HER SPO2 DROPPED TO 88%. NOT STABLE ENOUGH FOR A CT ANGIO. WILL CONTINUE TO REASSESS.
--- NOTE | 2020-07-28 10:00 | NUR ---
MD UPDATE DR. GRACE UPDATED ON PATIENTS STATUS. MD REQUESTING SUBASSEMBLY ASSEMBLER COVERAGE. DR. SEXTON NOT AVAILABLE AT THIS TIME. DR. VELASCO TO BE ASKED TO COVER THIS WEEKEND. SEE NEW ORDERS.
--- NOTE | 2020-07-28 10:07 | NUR ---
SPOKE WITH THE PATIENTS GRAND DAUGHTER OVER THE PHONE. UPDATED HER ON THE PATIENTS PLAN OF CARE.
--- NOTE | 2020-07-28 10:11 | NUR ---
SPOKE WITH OVER THE PHONE NEW ORDERS RECEIVED TO D/C LASIX AND GIVE 1L FLUIDS.
[2020-07-28] MEDS ORDERED: SODIUM CHLORIDE 0.9% 1,000 ML IV SCH (10:15)
[2020-07-28] MEDS: INSULIN LANTUS (GLARGINE) 1 /0.01ml (100units/ml) SC SCH (11:55)
[2020-07-28] MEDS ORDERED: DEXTROSE (50%) 50ML SYRG IV PRN (13:30)
--- NOTE | 2020-07-28 14:35 | NUR ---
Respiratory note: FIO2 CHANGED FROM 60% TO 50% BY RN.
--- NOTE | 2020-07-28 15:36 | NUR ---
MD AT BEDSIDE SPOKE WITH GAS TURBINE POWERPLANT MECHANIC HELPER ARLIN. NO NEW RECOMMENDATIONS RECEIVED.
--- NOTE | 2020-07-28 16:38 | NUR ---
NEPHRO CONSULT ORDERED BY ATTENDING PHYSICIAN. DR HERNÁNDEZ MADE AWARE OF NEPHRO CONSULT.
[2020-07-28] MEDS: REMDESIVIR 100mg in NS 230ml DAILYx4DAYS (NO VENT) IV SCH (17:15)
--- NOTE | 2020-07-28 19:30 | NUR ---
OPENING SHIFT RECEIVED REPORT FROM DAY SHIFT RN. ASSUMED CARE OF PATIENT. PATIENT INTUBATED AND SEDATED WITH NO SIGNS OR SYMPTOMS OF SOB, PAIN OR DISTRESS. HYPOACTIVE COUGH AND GAG. RIGHT UPPER ARM PICC TLC, RIGHT FOREARM IV, LEFT ANTECUBITAL IV - CLEAN/DRY/INTACT. TELLEZ HUNG TO GRAVITY - PATENT AND DRAINING. SEDATION: VERSED - 12MG/HR FENTANYL - 100MCG/HR REPOSITIONED FOR COMFORT. BED IN LOWEST POSITION, SIDE RAILS UP X2. WILL CONTINUE TO MONITOR.
[2020-07-29] VITALS (95 sets, daily range): BP systolic 97–131; BP diastolic 40–57
[2020-07-29] MEDS: MIDAZOLAM DRIP 50 mg/50mL 50 ML IV SCH ×6 (00:30→23:30)
[2020-07-29] MEDS: PIPERACILLIN-TAZOB 3.375GM 100 ML IV SCH ×4 (00:30→18:16)
[2020-07-29] MEDS: InsuLIN REG 1unit/0.01ml Soln (100units/ml) SC SCH ×4 (00:30→18:11)
--- NOTE | 2020-07-29 00:40 | NUR ---
MORNING CARE PERFORMED PARTIAL LINEN CHANGE AND GOWN CHANGED. REPOSITIONED FOR COMFORT. TELLEZ AND ORAL CARE PERFORMED. BED IN LOWEST POSITION, SIDE RAILS UP X2. WILL CONTINUE TO MONITOR.
[2020-07-29] MEDS: PROPOFOL 100 ML IV SCH (02:00)
[2020-07-29] MEDS: fentaNYL Drip 2500mCg/250mlNS 250 ML IV SCH (04:15)
[2020-07-29 05:15] LABS: Basophils # (auto) 0 10 ^3/uL (0-0.2); Basophils % (auto) 0.1 % (0.0-2.0); Eosinophils # (auto) 0 10 ^3/uL (0-0.8); Hemoglobin 10.8 g/dL (12.2-16.2); Lymphocytes # (auto) 0.3 10 ^3/uL (0.4-5.4); Lymphocytes % (auto) 4.8 % (10.0-50.0); Mean Corpuscular Hemoglobin 30.3 pg (28.0-32.0); Mean Corpuscular Hgb Conc. 32.8 g/dL (32.0-36.0); Mean Corpuscular Volume 92.5 fL (80.0-100.0); Monocytes # (auto) 0.6 10 ^3/uL (0-1.3); Monocytes % (auto) 8.5 % (0.0-12.0); Neutrophils # (auto) 5.9 10 ^3/uL (1.6-8.6); Neutrophils % (auto) 86.6 % (37.0-80.0); Platelet Count (auto) 352 10^3/uL (140-450); Red Blood Cells 3.57 10^6/uL (4.0-5.20); Red Cell Distribution Width 14.8 % (11.8-14.3); White Blood Cell 6.8 10^3/uL (4.4-10.8)
[2020-07-29] MEDS: NOREPINEPHRINE 8 MG/250ML KIT 250 ML IV SCH (05:15)
[2020-07-29 05:39] LABS: Albumin 1.9 g/dL (3.4-5.0); Potassium 3.1 mmol/L (3.5-5.1)
[2020-07-29 05:48] LABS: BUN/Creatinine Ratio 25.8; Bilirubin, Total 0.3 mg/dL (0.2-1.0)
[2020-07-29] MEDS: ACCU-CHEK COMFORT CURVE STRIP VI SCH ×4 (06:00→18:05)
--- NOTE | 2020-07-29 06:45 | NUR ---
SPOKE WITH DR. HERNÁNDEZ MADE AWARE OF POTASSIUM 3.1 RECEIVED ORDERS FOR 40MEQ K RIDER IV. TORB. WILL CONTINUE TO MONITOR.
[2020-07-29] MEDS: ALBUTEROL SULF 2.5 MG/0.5ML(0.5%) NEB SOLN NEB SCH ×3 (07:22→22:22)
--- NOTE | 2020-07-29 07:35 | NUR ---
END OF SHIFT REPORT GIVEN TO DAY SHIFT RN. CARE ENDORSED.
--- NOTE | 2020-07-29 09:00 | NUR ---
SEDATION VACATION HELD PATIENT CONTINUES TO BE MODERATELY SEDATED. INTUBATED ON FIO2 50% PEEP OF 12. WILL CONTINUE TO ASSESS. Addendum: 07/29/20 at 1100 by Iva Garcia RN Amended: Links added.
[2020-07-29] MEDS: INSULIN LANTUS (GLARGINE) 1 /0.01ml (100units/ml) SC SCH (09:01)
[2020-07-29] MEDS: POTASSIUM CHL 20MEQ/100ML 100 ML IV SCH ×2 (09:14→10:29)
[2020-07-29] MEDS: ASCORBIC ACID 500 MG TAB PO SCH (09:15)
[2020-07-29] MEDS: PANTOPRAZOLE 40 MG/10 ML VIAL INJ IV SCH (09:16)
[2020-07-29] MEDS: ENOXAPARIN SOD 80 MG/0.8ML SYRINGE SC SCH ×2 (09:16→21:44)
[2020-07-29] MEDS: CHOLECALCIFEROL (VITD3) 2,000 UNIT CAP PO SCH (09:16)
[2020-07-29] MEDS: SODIUM CHLOR 0.9% PF (SALINE LOCK) 10ML VIAL/SYR IV SCH ×2 (09:17→21:44)
[2020-07-29] MEDS: DexAMETHasone SOD PHOS 10MG/1ML VIAL INJ IV SCH (09:17)
[2020-07-29] MEDS: ZINC SULFATE 220mg CAP or TAB PO SCH (09:17)
--- NOTE | 2020-07-29 10:24 | NUR ---
SPOKE TO THE PATIENTS GRANDDAUGHTER OVER THE PHONE. UPDATED HER ON THE PATIENTS STATUS AND PLAN OF CARE. WILL LET THE ATTENDING PHYSICIAN KNOW THAT THE DAUGHTER HAS REQUESTED TO SPEAK WITH HIM.
--- NOTE | 2020-07-29 11:00 | NUR ---
MD ROUNDS DR. GRACE UPDATED ON PATIENTS STATUS. NEW ORDERS IN PLACE.
--- NOTE | 2020-07-29 11:06 | NUR ---
Nutrition Followup Note Wt 70.7kg Pt is covid positive in isolation in the ICU. Pt is a consult for new intubation. Pt is intubated and sedated currently on sedation vacation per RN note. Pt is with Glucerna 1.2 at 50 ml/hr per MD order. TF is started at 10 ml/hr per RN note with 0 administered so far. Will monitor TF rate and tolerance. Est Energy needs: 9256-4857 kcals (20-23 kcal/kgBW) Est Protein needs: 56-70 gms/day (0.8-1.0 gm/kgBW) Will continue to monitor and reassess prn. Labs: BUN 32H, Creat 1.24H, Alb 1.9L, Ca 8.0L, GLUC 263H BM: Pt with 1 BM 07/28 per RN note Skin: BS 13 mod risk, full details in long term acute care registered nurse note PES: 1) Increased nutrient needs r/t pt is with no PO intake aeb pt is sedated, intubated, NPO 2) Altered nutrition related lab values r/t current medical condition aeb hyperglycemia, hypocalcemia, hypoalbuminemia Comments Will continue to monitor PO status, skin status, pertinent labs and weight trends. Will f/u in 2-3 days. 1) Continue to carefully monitor pt NPO status 2) Continue EN nutrition support Glucerna 1.2 @ 50ml/hr goal rate as tolerated and per MD approval 3) Gradually advance pt to oral diet when medically feasible and as tolerated 4) If albumin continues trending down consider Prostat 1 pkt BID 5) Continue current plan of care Expected Outcomes/Goals: Pt to receive nutrition support within 48 hours Pt to advance to an oral diet Pt labs to improve
--- NOTE | 2020-07-29 14:00 | NUR ---
Decreased PEEP to +10 as ordered. FIO2 remains at 50%. Pt tolerating changes, SPO2 94%. Notified RN Coretta Prasad of changes.
[2020-07-29] MEDS: Glucerna 1.2 Cal 1Liter BOTTLE GT SCH (15:26)
[2020-07-29] MEDS ORDERED: VANCOMYCIN 1GM/250ML 250 ML IV ONE (16:00)
[2020-07-29] MEDS: REMDESIVIR 100mg in NS 230ml DAILYx4DAYS (NO VENT) IV SCH (17:05)
--- NOTE | 2020-07-29 18:00 | NUR ---
TUBE FEEDING PATIENT IS TOLERATING TUBE FEEDING. NO RESIDUAL. INCREASED TUBE FEEDING TO 40ML/HR.
--- NOTE | 2020-07-29 18:27 | NUR ---
Respiratory note: RECEIVED PT ON VENT V17, VENT CONNECTED TO RED OUTLET AND O2 SOURCE ALARMS ARE SET AND AUDIBLE. VENT CHECK DONE FROM PTS ROOM DOOR DUE TO COVID PRECAUTIONS. AMBU BAG AND MASK AT BEDSIDE. PTS CURRENT TEMP READS 98.2F. WILL CONTINUE TO MONITOR.
--- NOTE | 2020-07-29 20:31 | NUR ---
PAGED Luli GRACE REGARDING K/MAG PROTOCOL PER CHARGE NURSE MAKENNA THERE IS NO K/MAG PROTOCOL AT [facility] EXCEPT FOR OPEN HEART SURGERIES.
--- NOTE | 2020-07-29 20:39 | NUR ---
Luli GRACE RETURNED CALL PER CANCEL K/MAG PROTOCOL AND ORDER BNP AND MAG AM
--- NOTE | 2020-07-29 22:02 | NUR ---
SPOKE WITH KIRILL (GRAND DAUGHTER) VERIFIED PASSWORD UPDATED HER ON PATIENTS STATUS AND POC. SHE STATED THAT SHE HAD CHANCE TO SPEAK WITH Luli GRACE ALL QUESTIONS AND CONCERNS ADDRESSED.
[2020-07-30] VITALS (97 sets, daily range): BP systolic 104–164; BP diastolic 37–73
[2020-07-30] MEDS: PIPERACILLIN-TAZOB 3.375GM 100 ML IV SCH ×4 (00:12→18:25)
[2020-07-30] MEDS: ACCU-CHEK COMFORT CURVE STRIP VI SCH ×4 (00:43→18:25)
[2020-07-30] MEDS: InsuLIN REG 1unit/0.01ml Soln (100units/ml) SC SCH ×4 (00:44→18:25)
[2020-07-30] MEDS: PROPOFOL 100 ML IV SCH (02:00)
[2020-07-30] MEDS: fentaNYL Drip 2500mCg/250mlNS 250 ML IV SCH (03:02)
[2020-07-30] MEDS: MIDAZOLAM DRIP 50 mg/50mL 50 ML IV SCH (03:05)
--- NOTE | 2020-07-30 04:15 | NUR ---
CARES PARTIAL BED BATH, PARTIAL BED LINEN CHANGE, APPLIED OPTIFOAM TO SACRUM FOR PREVENTATIVE MEASURE. PATIENT TOLERATED TURNS WELL, VS ARE STABLE.
[2020-07-30] MEDS: NOREPINEPHRINE 8 MG/250ML KIT 250 ML IV SCH (05:15)
[2020-07-30 05:51] LABS: Basophils # (auto) 0 10 ^3/uL (0-0.2); Basophils % (auto) 0.2 % (0.0-2.0); Eosinophils # (auto) 0 10 ^3/uL (0-0.8); Hematocrit 34.5 % (36.0-46.0); Hemoglobin 11.2 g/dL (12.2-16.2); Lymphocytes # (auto) 0.4 10 ^3/uL (0.4-5.4); Lymphocytes % (auto) 4.4 % (10.0-50.0); Mean Corpuscular Hemoglobin 30.2 pg (28.0-32.0); Mean Corpuscular Hgb Conc. 32.4 g/dL (32.0-36.0); Mean Corpuscular Volume 93.2 fL (80.0-100.0); Monocytes # (auto) 0.7 10 ^3/uL (0-1.3); Monocytes % (auto) 6.6 % (0.0-12.0); Neutrophils # (auto) 8.9 10 ^3/uL (1.6-8.6); Neutrophils % (auto) 88.8 % (37.0-80.0); Platelet Count (auto) 333 10^3/uL (140-450); Red Cell Distribution Width 15.2 % (11.8-14.3)
[2020-07-30] MEDS: ALBUTEROL SULF 2.5 MG/0.5ML(0.5%) NEB SOLN NEB SCH ×3 (06:20→22:33)
[2020-07-30 06:43] LABS: BUN/Creatinine Ratio 44.4; Calcium 8.7 mg/dL (8.5-10.1); Magnesium 2.3 mg/dL (1.6-2.6)
--- NOTE | 2020-07-30 07:30 | NUR ---
Report obtained Updated on plan of care. Patient remains intubated/ sedated. VSS. Patient remains on isolation precautions for covid. See interventions/iv spreadsheet.
--- NOTE | 2020-07-30 08:00 | NUR ---
Tube feedings tolerated Placement verified via auscultation. No gastric residual noted. Tf increased to 50mlhr at goal rate. Aspiration precautions in place.
--- NOTE | 2020-07-30 08:15 | NUR ---
Elimination Patient had a small brown, loose, bm. Skin cleansed. Right buttock noted to have a small area of concern, slow to bruno. Zguard applied. Optifoam to sacrum as preventative.
[2020-07-30] MEDS: ENOXAPARIN SOD 80 MG/0.8ML SYRINGE SC SCH ×2 (09:46→21:54)
[2020-07-30] MEDS: PANTOPRAZOLE 40 MG/10 ML VIAL INJ IV SCH (09:46)
[2020-07-30] MEDS: ASCORBIC ACID 500 MG TAB PO SCH (09:46)
[2020-07-30] MEDS: DexAMETHasone SOD PHOS 10MG/1ML VIAL INJ IV SCH (09:46)
[2020-07-30] MEDS: SODIUM CHLOR 0.9% PF (SALINE LOCK) 10ML VIAL/SYR IV SCH ×2 (09:47→21:54)
[2020-07-30] MEDS: ZINC SULFATE 220mg CAP or TAB PO SCH (09:47)
[2020-07-30] MEDS: CHOLECALCIFEROL (VITD3) 2,000 UNIT CAP PO SCH (09:47)
[2020-07-30] MEDS: INSULIN LANTUS (GLARGINE) 1 /0.01ml (100units/ml) SC SCH (09:49)
--- NOTE | 2020-07-30 10:30 | NUR ---
SCREEN CUTTER AND TRIMMER Dr. Tang updated on patients status. New order for vent changes. Per , possible cpap trial in a.m. Addendum: 07/30/20 at 1839 by Iva Garcia RN Per , no CT of chest at this time as patients is improving.
--- NOTE | 2020-07-30 10:45 | NUR ---
Family updated on pt status Family of SKYLAMORGAN updated on patient's status and condition. All questions and concerns addressed. Drew verbalized understanding with james york.
--- NOTE | 2020-07-30 11:22 | NUR ---
Respiratory note: DUE TO RT LUZ BEING AT A PROCEDURE WITH ANOTHER PT IN TAX PREPARER, THIS RT MADE THE FOLLOWING VENTILATOR CHANGES PER DR NEAL ORDER. DECREASE IN PEEP TO +8. FIO2 TO 40%. ABG TOMORROW IN A.M. POST VENT CHANGES. PT TOLERATED CHANGES WELL. RN AWARE. WILL CONTINUE TO MONITOR PT IN RT LUZ'S ABSENCE. CHARTING COMPLETE FROM OUTSIDE OF PT ROOM PER COVID-19 PRECAUTIONS/PROTOCOL
--- NOTE | 2020-07-30 11:30 | NUR ---
MD update Dr. Lucas updated on patients status. New orders in place. See md orders/notes.
[2020-07-30] MEDS ORDERED: INSULIN LANTUS (GLARGINE) 1 /0.01ml (100units/ml) SC ONE (12:00)
--- NOTE | 2020-07-30 12:00 | NUR ---
Elimination Patient had a small brown/orange, loose/soft bm. Skin cleansed. Zguard applied. Patients heels remain off loaded. Patient turned to off load sacrum. Patient tolerated activity well.
--- NOTE | 2020-07-30 12:01 | NUR ---
Lock Assembler Dr. Tang stating she spoke to Dr. Shayy Md requesting sedation vacation for possible cpap trial today. Sedation decreased. See iv spreadsheet.
[2020-07-30] MEDS ORDERED: hydrALAZINE HCL 20 MG/ML VL IV PRN (13:30)
--- NOTE | 2020-07-30 13:37 | NUR ---
COMBINING MACHINE OPERATOR MAKING ROUNDS. UPDATED ON PATIENTS STATUS. MD AWARE OF POSSIBLE CPAP TRIAL WITH CURRENT BP 164/63 SINCE SEDATION DECREASED. NEW ORDER IN PLACE.
--- NOTE | 2020-07-30 16:24 | NUR ---
CARES/ DESATURATION Partial linen change done. Patient had a moderate, brown/orange loose bm. Skin cleansed. Zgaurd applied to faith area as patient is having a small loose stool every turn provided. Patient coughing frequently, opening eyes, not yet following commands. Pox noted to decrease as low as 86%. 100% supplemental oxygenation provided. Pox remained 89-91%. Will continue to monitor. R.T aware.
[2020-07-30] MEDS: VANCOMYCIN 1GM/250ML 250 ML IV SCH (16:41)
--- NOTE | 2020-07-30 17:13 | NUR ---
updated Dr. Tang updated on patients status. Md aware patient not yet waking up, only opening eyes during care, not yet following commands. Per md, ok to start sedation as needed for comfort and cpap for a.m.
--- NOTE | 2020-07-30 17:31 | NUR ---
Family updated on pt status Family of MORGAN CRUM updated on patient's status and condition. All questions and concerns addressed. Granddaughter verbalized understanding.
--- NOTE | 2020-07-30 18:26 | NUR ---
Respiratory note: RECEIVED PT ON VENT V17, VENT CHECK BEING DONE FROM PTS ROOM DOOR DUE TO COVID PRECAUTIONS. VENT CONNECTED TO RED OUTLET AND O2 SOURCE. ALARMS ARE SET AND AUDIBLE AMBU BAG AND MASK AT BEDSIDE. CURRENT TEMP READS 98.1F. WILL CONTINUE TO MONITOR.
--- NOTE | 2020-07-30 18:42 | NUR ---
Nutrition Tube feedings restarted at previous rate as cpap to be held until a.m. Placement verified via auscultation, no gastric residual. TF started at 50ml/hr with aspiration precautions in place.
--- NOTE | 2020-07-30 19:55 | NUR ---
FEEDING FEEDING RUNNING AT 50 CC/HR NO RESIDUAL. VERIFIED NG TUBE PLACEMENT VIA AUSCULTATION. ASPIRATION PRECAUTIONS ARE IN PLACE.
--- NOTE | 2020-07-30 20:14 | NUR ---
Elimination Patient had a moderate brown loose/soft bm. Skin cleansed. Zguard and Optifoam applied. Patients heels remain off loaded. Patient turned to off load sacrum. Patient tolerated activity well. Patient was coughing and partially opening eyes.
--- NOTE | 2020-07-30 22:11 | NUR ---
SPOKE WITH KIRILL (GRAND DAUGHTER) VERIFIED PASSWORD UPDATED ON PATIENTS STATUS AND POC, ALL QUESTIONS AND CONCERNS ADDRESSED. SHE VERBALIZED UNDERSTANDING.
--- NOTE | 2020-07-30 22:33 | NUR ---
Respiratory note: AT BEDSIDE IN FULL PPE DUE TO COVID PRECAUTIONS. BS ARE FINE COURSE SXD VIA ETT FOR SMALL AMOUNT OF THICK CREAMY AGUILAR. MED NEB TX GIVEN VIA AEROGEN, NO ADVERSE REACTION NOTED. CURRENT TEMP READS 98.2F. NO VENT CHANGES MADE WILL CONTINUE TO MONITOR.
[2020-07-31] VITALS (88 sets, daily range): BP systolic 102–225; BP diastolic 44–114
[2020-07-31] MEDS: PIPERACILLIN-TAZOB 3.375GM 100 ML IV SCH ×5 (00:01→23:45)
[2020-07-31] MEDS: ACCU-CHEK COMFORT CURVE STRIP VI SCH ×5 (00:01→23:45)
[2020-07-31] MEDS: InsuLIN REG 1unit/0.01ml Soln (100units/ml) SC SCH ×5 (00:05→23:47)
[2020-07-31] MEDS: fentaNYL Drip 2500mCg/250mlNS 250 ML IV SCH (01:14)
[2020-07-31] MEDS: PROPOFOL 100 ML IV SCH (02:00)
--- NOTE | 2020-07-31 03:30 | NUR ---
STOPPED FEEDING FOR AM CPAP TRIAL POSSIBLE CPAP TRIAL AM PER DAY SHIFT REPORT. FEEDING WAS RUNNING AT 50CC/HR RESIDUAL 10CC
[2020-07-31 04:42] LABS: Basophils # (auto) 0 10 ^3/uL (0-0.2); Basophils % (auto) 0.2 % (0.0-2.0); Eosinophils # (auto) 0 10 ^3/uL (0-0.8); Hematocrit 34.2 % (36.0-46.0); Hemoglobin 11.4 g/dL (12.2-16.2); Lymphocytes # (auto) 0.3 10 ^3/uL (0.4-5.4); Lymphocytes % (auto) 1.9 % (10.0-50.0); Mean Corpuscular Hemoglobin 30.7 pg (28.0-32.0); Mean Corpuscular Hgb Conc. 33.4 g/dL (32.0-36.0); Mean Corpuscular Volume 92.1 fL (80.0-100.0); Monocytes % (auto) 6.6 % (0.0-12.0); Neutrophils # (auto) 13.1 10 ^3/uL (1.6-8.6); Neutrophils % (auto) 91.3 % (37.0-80.0); Platelet Count (auto) 337 10^3/uL (140-450); Red Blood Cells 3.71 10^6/uL (4.0-5.20); Red Cell Distribution Width 15.3 % (11.8-14.3); White Blood Cell 14.4 10^3/uL (4.4-10.8)
[2020-07-31 04:56] LABS: BUN/Creatinine Ratio 46.5; Calcium 8.8 mg/dL (8.5-10.1)
[2020-07-31] MEDS: NOREPINEPHRINE 8 MG/250ML KIT 250 ML IV SCH (05:15)
[2020-07-31] MEDS: ALBUTEROL SULF 2.5 MG/0.5ML(0.5%) NEB SOLN NEB SCH ×3 (06:28→22:32)
[2020-07-31] MEDS: DexAMETHasone SOD PHOS 10MG/1ML VIAL INJ IV SCH (09:06)
[2020-07-31] MEDS: ZINC SULFATE 220mg CAP or TAB PO SCH (09:06)
[2020-07-31] MEDS: SODIUM CHLOR 0.9% PF (SALINE LOCK) 10ML VIAL/SYR IV SCH ×2 (09:06→21:59)
[2020-07-31] MEDS: ASCORBIC ACID 500 MG TAB PO SCH (09:06)
[2020-07-31] MEDS: PANTOPRAZOLE 40 MG/10 ML VIAL INJ IV SCH (09:06)
[2020-07-31] MEDS: ENOXAPARIN SOD 80 MG/0.8ML SYRINGE SC SCH ×2 (09:07→21:59)
[2020-07-31] MEDS: CHOLECALCIFEROL (VITD3) 2,000 UNIT CAP PO SCH (09:07)
[2020-07-31] MEDS: INSULIN LANTUS (GLARGINE) 1 /0.01ml (100units/ml) SC SCH (10:54)
--- NOTE | 2020-07-31 11:27 | NUR ---
Nutrition Followup Note Wt 76.1 kg Pt is covid positive in isolation in the ICU. Pt is intubated, sedated with EN nutrition support Glucerna 1.2 @50 ml/hr, tolerating it well per RN doc. Est Energy needs: 8036-6123 kcals (20-23 kcal/kgBW) Est Protein needs: 56-70 gms/day (0.8-1.0 gm/kgBW) Will continue to monitor and reassess prn. Labs: BUN 40H, Alb 1.9L, GLUC 211H BM: Pt with 1 BM 07/31 per RN note Skin: BS 10 mod risk, full details in director of healthcare systems note PES: 1) Increased nutrient needs r/t pt is with no PO intake aeb pt is sedated, intubated, NPO 2) Altered nutrition related lab values r/t current medical condition aeb hyperglycemia, hypocalcemia, hypoalbuminemia Comments Will continue to monitor PO status, skin status, pertinent labs and weight trends. Will f/u in 2-3 days. 1) Continue to carefully monitor pt NPO status 2) Continue EN nutrition support Glucerna 1.2 @ 50ml/hr goal rate as tolerated and per MD approval (Resolved) 3) Gradually advance pt to oral diet when medically feasible and as tolerated 4) If albumin continues trending down consider Prostat 1 pkt BID 5) Continue current plan of care
[2020-07-31] MEDS: hydrALAZINE HCL 20 MG/ML VL IV PRN (11:32)
--- NOTE | 2020-07-31 12:04 | NUR ---
UNABLE TO TRIAL PT ON CPAP AT THIS TIME. PT AGITATED, DOES NOT TRACK OR FOLLOW COMMANDS, PT FACE IS RED AND WARM TO TOUCH, HR 145, BP 193/103, RR 38. RN AWARE.
--- NOTE | 2020-07-31 12:20 | NUR ---
PT- RESPIRATION SEDATION BEING INCREASED. PT BECOMING RESTLESS. CHANGE TO BREATHING AND VS. SEE IV SPREADSHEET FOR TITRATION CHANGES. PULMONARY MD NOTIFIED AND CPAP DISCONTINUED FOR TODAY.
--- NOTE | 2020-07-31 16:00 | NUR ---
FAMILY CALLED UPDATE GIVEN. NO ADDITIONAL QUESTIONS FROM FAMILY.
[2020-07-31] MEDS: VANCOMYCIN 1GM/250ML 250 ML IV SCH (16:14)
--- NOTE | 2020-07-31 20:00 | NUR ---
Opening Shift Note Received report from Martir BROWN. Pt came in on 07/24 for SOB and CP. Pt was ruled out for COVID on 07/24 with both the rapid COVID test and the [facility] in house COVID test. On 07/25, the patient became increasingly SOB and another in house COVID test was performed; the results were positive. The Pt was placed in airborne isolation and has since received remdesevir and convalescent plasma. On 07/26, the patient became increasingly SOB, confused and started to take off her high flow o2. All non invasive interventions were tried prior to intubation but the patient ended up being intubated and brought to ICU. All history obtained from the chart and previous RN. Pt was going to have a CPAP trial today, but upon decreasing the sedation the patients HR went into the 150's, the patient desaturated and the FIO2 had to be increased from 40% to 100%, and the BP went up to the 180's. Plan is to try CPAP tomorrow. Pt is currently lying in bed, eyes closed, intubated and has precedex running at 0.5 and Fent at 100. VSS. No s/s of distress noted at this time. Respirations are even and unlabored. Bed is locked at lowest position, side rails are up. Will continue to monitor.
--- NOTE | 2020-07-31 21:32 | NUR ---
Family Family on the phone. Updated pt status and POC. All questions and concerns addressed.
--- NOTE | 2020-07-31 23:00 | NUR ---
Desaturation episode At this time, patient became restless and anxious. Eyes are open, patient is nodding head. Pt's blood pressure 225/87, HR is in the 150's, spo2 is 84% on 100% FIO2. Will increase Fentanyl and monitor the patient closely for safety and comfort.
--- NOTE | 2020-07-31 23:15 | NUR ---
Partial linen change Only partial linen change performed at this time. Unable to perform bed bath due to patients desaturation episode upon stimulation. Will continue to monitor for the opportunity to perform a bed bath when it is safe to do so.
[2020-08-01] VITALS (99 sets, daily range): BP systolic 101–124; BP diastolic 41–60
--- NOTE | 2020-08-01 | NUR ---
Unable to Turn D/T patients desaturation to 84% on 100% FIO2. Pt unable to tolerate at this time. Will continue to monitor. Addendum: 08/01/20 at 0016 by JOSSY CALERO RN RN Amended: Links added.
[2020-08-01] MEDS: fentaNYL Drip 2500mCg/250mlNS 250 ML IV SCH ×2 (00:53→14:08)
[2020-08-01] MEDS: MIDAZOLAM DRIP 50 mg/50mL 50 ML IV SCH ×2 (01:30→20:00)
[2020-08-01] MEDS: PROPOFOL 100 ML IV SCH (02:00)
--- NOTE | 2020-08-01 02:00 | NUR ---
Unable to Turn Pt is lightly sedated. Pt is aroused with minimal stimulation. Pt's HR becomes elevated with minimal stimulation. Patient in maxed on Fentanyl and Precedex with a plan to CPAP later today. Will continue to assess for the opportunity to turn and bath the patient when RASS score reaches target score. Addendum: 08/01/20 at 0345 by JOSSY CALERO RN RN Amended: Links added.
--- NOTE | 2020-08-01 04:00 | NUR ---
Unable to turn Pt spo2 decreased to and sustaining at 87% with minimal stimulation on 100% FIO2. Unable to turn at this time for patient safety. Will continue to monitor for the opportunity to turn patient when safe to do so.
[2020-08-01] MEDS: NOREPINEPHRINE 8 MG/250ML KIT 250 ML IV SCH (05:15)
[2020-08-01] MEDS: ACCU-CHEK COMFORT CURVE STRIP VI SCH ×4 (05:30→23:32)
[2020-08-01] MEDS: PIPERACILLIN-TAZOB 3.375GM 100 ML IV SCH ×4 (05:30→23:31)
[2020-08-01] MEDS: InsuLIN REG 1unit/0.01ml Soln (100units/ml) SC SCH ×3 (05:47→18:00)
[2020-08-01 06:00] LABS: Basophils # (auto) 0.1 10 ^3/uL (0-0.2); Basophils % (auto) 0.7 % (0.0-2.0); Eosinophils # (auto) 0.1 10 ^3/uL (0-0.8); Eosinophils % (auto) 0.5 % (0.0-7.0); Hematocrit 35.6 % (36.0-46.0); Hemoglobin 11.6 g/dL (12.2-16.2); Lymphocytes # (auto) 0.5 10 ^3/uL (0.4-5.4); Lymphocytes % (auto) 2.9 % (10.0-50.0); Mean Corpuscular Hemoglobin 30.1 pg (28.0-32.0); Mean Corpuscular Hgb Conc. 32.5 g/dL (32.0-36.0); Mean Corpuscular Volume 92.8 fL (80.0-100.0); Monocytes # (auto) 0.7 10 ^3/uL (0-1.3); Monocytes % (auto) 4.3 % (0.0-12.0); Neutrophils # (auto) 14.4 10 ^3/uL (1.6-8.6); Neutrophils % (auto) 91.6 % (37.0-80.0); Platelet Count (auto) 263 10^3/uL (140-450); Red Blood Cells 3.83 10^6/uL (4.0-5.20); Red Cell Distribution Width 15.2 % (11.8-14.3); White Blood Cell 15.7 10^3/uL (4.4-10.8)
--- NOTE | 2020-08-01 06:15 | NUR ---
Unable to turn Pt spo2 decreased to and sustaining at 88% with minimal stimulation on 100% FIO2. Unable to turn at this time for patient safety. Will continue to monitor for the opportunity to turn patient when safe to do so.
[2020-08-01 06:23] LABS: BUN/Creatinine Ratio 39.7; Calcium 8.8 mg/dL (8.5-10.1); Potassium 3.5 mmol/L (3.5-5.1)
--- NOTE | 2020-08-01 07:30 | NUR ---
Opening Shift Note Received pt on mechanical ventilator, with fentanyl and precedex running. Pt does awaken when stimulated but is anxious and sporadic, vital signs rise and not within normal limits, pt does not follow commands. Bilateral mittens on for safety of tubes and lines. COVID isolation precautions. YAHIR PICC TLC, all ports patent. See IV spreadsheet for details. Skin intact with optifoam to sacrum. Turned pt to right side. OGT secure and positive placement verified. Mason catheter draining yellow urine with sediment and clots. Bed locked in lowest position. Will continue to monitor closely.
[2020-08-01] MEDS: ALBUTEROL SULF 2.5 MG/0.5ML(0.5%) NEB SOLN NEB SCH ×3 (07:35→22:05)
--- NOTE | 2020-08-01 09:33 | NUR ---
Pt did not tolerate sedation vacation even on precedex. While attempting to wake pt up, B/P 220/149 HR144 Desaturated to 82% RR 26. Versed and fentanyl restarted at this time
--- NOTE | 2020-08-01 10:30 | NUR ---
Dr. Tang at bedside updated on pt status; new orders received
[2020-08-01] MEDS: PANTOPRAZOLE 40 MG/10 ML VIAL INJ IV SCH (10:39)
[2020-08-01] MEDS: SODIUM CHLOR 0.9% PF (SALINE LOCK) 10ML VIAL/SYR IV SCH ×2 (10:39→22:00)
[2020-08-01] MEDS: DexAMETHasone SOD PHOS 10MG/1ML VIAL INJ IV SCH (10:39)
[2020-08-01] MEDS: ASCORBIC ACID 500 MG TAB PO SCH (10:40)
[2020-08-01] MEDS: ENOXAPARIN SOD 80 MG/0.8ML SYRINGE SC SCH ×2 (10:40→22:00)
[2020-08-01] MEDS: CHOLECALCIFEROL (VITD3) 2,000 UNIT CAP PO SCH (10:40)
[2020-08-01] MEDS: ZINC SULFATE 220mg CAP or TAB PO SCH (10:40)
[2020-08-01] MEDS: INSULIN LANTUS (GLARGINE) 1 /0.01ml (100units/ml) SC SCH (10:41)
--- NOTE | 2020-08-01 11:00 | NUR ---
Spoke with pt's grand-daughter, password verified, all questions and concerns addressed at this time.
[2020-08-01] MEDS: VANCOMYCIN 1GM/250ML 250 ML IV SCH (16:38)
--- NOTE | 2020-08-01 16:44 | NUR ---
Dr Jake Lucas rounding on pt. New orders received to retest pt. Will swab and send to lab
--- NOTE | 2020-08-01 19:30 | NUR ---
Report given to slot shift manager RN
--- NOTE | 2020-08-01 19:43 | NUR ---
ADMITTED WITH DYSPNEA, CHEST PAIN. WENT FROM A NRB TO BEING INTUBATED IN ER. BROUGHT TO ICU. FAILED ATTEMPT AT CPAP TODAY. WBC INCREASING. FEVERS. NSR WITHOUT ECTOPY. ON FIO2 OF 100%. PEEP OF 10. ON GLUCERNA AT 30CC/HR AND TOLERATING IT WELL. TELLEZ IN PLACE TO DOWN DRAIN BAG. SEDATION: FENTANYL AND VERSED. PREVIOUSLY RECEIVED REMDESIVIR AND CONVALESCENT PLASMA. ANTIBIOTIC: ZOSYN. IV ACCESS: YAHIR TRIPLE LUMEN PICC LINE, RIGHT FOREARM 22 G AND A LAC 20 G.
[2020-08-01] MEDS: Glucerna 1.2 Cal 1Liter BOTTLE GT SCH (20:00)
--- NOTE | 2020-08-01 20:00 | NUR ---
OVER BREATHES THE VENTILATOR AT 20. NOTHING SUCTIONED FROM THE ETT. ORAL CARE DONE. ABDOMEN ROUND AND SOFT. TOLERATING THE TUBE FEEDING. RESIDUAL 2 CC. LUNGS CLEAR. TELLEZ: DRAINING CLEAR YELLOW LIQUID TO DOWN DRAIN BAG. RICHARD. ARMS MOVE SLIGHTLY. BILATERAL MITTENS ON. ALL PULSES PALPABLE. NO FEVER. GLUCERNA BAG AND TUBING NEW.
--- NOTE | 2020-08-01 22:30 | NUR ---
REPOSITIONED TO RIGHT SIDE USING THE BED. SUCTIONED ETT. NO SECRETIONS FROM THE ETT. ORAL CARE DONE. TELLEZ IN GOOD POSITION TO DOWN DRAIN BAG. LUNGS CLEAR. REMAINS ON 100% FIO2 AND A PEEP OF 10 O2 SAT IS 95%. TOLERATING TUBE FEEDING. NO RESIDUAL.
--- NOTE | 2020-08-01 22:35 | NUR ---
EXPLAINED THINGS TO HER AND HER HEART RATE WENT UP. SPOKE TO THE GRANDAUGHTER. SHE IS SPEAKING AND CONNECTING WITH THE . SHE IS NOT READY TO MAKE A DECISION ABOUT CODE STATUS.
[2020-08-02] VITALS (103 sets, daily range): BP systolic 106–143; BP diastolic 42–68
--- NOTE | 2020-08-02 | NUR ---
VSS. SINUS TACHYCARDIA. NO FEVER. WAKES UP A LITTLE, BUT DOESN'T TRY TO MOVE A LOT. BILATERAL MITTENS ON. ABDOMEN SOFT. TELLEZ DRAINING APPROXIMATELY 80CC/2 HOURS. NO BM. ALL EXTREMITIES WARM. ALL PULSES PALPABLE. NGT RESIDUAL 2 CC. INCREASED HER TUBE FEEDING TO 45CC/HR
[2020-08-02] MEDS: fentaNYL Drip 2500mCg/250mlNS 250 ML IV SCH ×2 (02:00→17:49)
[2020-08-02] MEDS: MIDAZOLAM DRIP 50 mg/50mL 50 ML IV SCH ×5 (02:00→23:22)
--- NOTE | 2020-08-02 02:00 | NUR ---
REPOSITIONED. SUCTIONED THE ETT. ORAL CARE DONE. VSS. OVERBREATHING THE VENTILATOR AT TIMES. RR 16-20.
--- NOTE | 2020-08-02 05:03 | NUR ---
chg bath and linen change. am labs sent
[2020-08-02 05:33] LABS: Basophils # (auto) 0 10 ^3/uL (0-0.2); Basophils % (auto) 0.2 % (0.0-2.0); Eosinophils # (auto) 0 10 ^3/uL (0-0.8); Hematocrit 34.6 % (36.0-46.0); Lymphocytes # (auto) 0.2 10 ^3/uL (0.4-5.4); Lymphocytes % (auto) 0.9 % (10.0-50.0); Mean Corpuscular Hemoglobin 29.6 pg (28.0-32.0); Mean Corpuscular Hgb Conc. 31.7 g/dL (32.0-36.0); Mean Corpuscular Volume 93.4 fL (80.0-100.0); Monocytes # (auto) 0.6 10 ^3/uL (0-1.3); Monocytes % (auto) 3.3 % (0.0-12.0); Neutrophils # (auto) 17.7 10 ^3/uL (1.6-8.6); Neutrophils % (auto) 95.6 % (37.0-80.0); Platelet Count (auto) 276 10^3/uL (140-450); Red Cell Distribution Width 15.2 % (11.8-14.3); White Blood Cell 18.6 10^3/uL (4.4-10.8)
[2020-08-02] MEDS: VANCOMYCIN 1GM/250ML 250 ML IV SCH ×2 (05:58→19:54)
[2020-08-02] MEDS: ACCU-CHEK COMFORT CURVE STRIP VI SCH ×4 (05:59→23:56)
[2020-08-02] MEDS: PIPERACILLIN-TAZOB 3.375GM 100 ML IV SCH ×4 (05:59→23:38)
--- NOTE | 2020-08-02 06:00 | NUR ---
PIGGYBACKS HUNG. VSS. NSR WITHOUT ECTOPY. O2 SAT IMPROVING , NOW 97-98%
[2020-08-02 06:05] LABS: BUN/Creatinine Ratio 36.1; Calcium 8.9 mg/dL (8.5-10.1); Potassium 4.6 mmol/L (3.5-5.1)
[2020-08-02] MEDS: InsuLIN REG 1unit/0.01ml Soln (100units/ml) SC SCH ×5 (06:18→23:58)
[2020-08-02] MEDS: ALBUTEROL SULF 2.5 MG/0.5ML(0.5%) NEB SOLN NEB SCH ×3 (07:07→22:36)
--- NOTE | 2020-08-02 07:30 | NUR ---
REPORT REPORT RECEIVED FROM LEXIE RNARMANDO. PT IN ISOLATION FOR + COVID. VIEWED PT THROUGH GLASS WINDOWS. PT INTUBATED AND SEDATED. VSS. CONTINUE TO MONITOR.
--- NOTE | 2020-08-02 08:27 | NUR ---
ASSESSMENT PT IN ISOLATION FOR + COVID. PT WITH EYES CLOSED. SEDATED ON VERSED AND FENTANYL WHILE INTUBATED. MITTENS TO BOTH HANDS TO PREVENT PULLING AT ANY TUBES. VENTILATOR SETTINGS: 7.5 ETT/23 AT THE LIP, AC 16, TV 500, 100% FIO2 AND PEEP OF 10. LUNGS CLEAR THROUGHOUT. O2 SAT OF 97%. TELE SR 93, WITH DEPRESSED ST IN LEAD I , AND ELEVATED ST AND INVERTED T WAVE IN LEADS AVR AND V. PALPABLE PULSES TO ALL EXTREMITIES. SCDS AND HEEL PROTECTORS IN PLACE TO BLE. ABD SOFT WITH + BOWEL SOUNDS. OGT WITH + PLACEMENT AND NO RESIDUAL NOTED. FEEDING OF GLUCERNA 1.2 INFUSING AT 45 ML/HR. TELLEZ CATHETER DRAINING YELLOW URINE WITH SEDIMENT. TURNED FOR COMFORT TO HER LEFT SIDE./ OPTIFOAM IN PLACE TO SACRUM WITH SKIN UNDER CLEAN AND DRY. BOTH EARLOBES A BLANCHABLE RED. SCAB NOTED TO RFA. RAILS UP X4 AND BED IN LOW POSITION FOR PT SAFETY. CONTINUE TO MONITOR.
--- NOTE | 2020-08-02 08:27 | NUR ---
PT TEACHING PT UNABLE TO BENEFIT FROM PT TEACHING AT THIS TIME PT IS SEDATED WHILE INTUBATED. Addendum: 08/02/20 at 1549 by Jaimee Richardson RN Amended: Links added.
[2020-08-02] MEDS: PROPOFOL 100 ML IV SCH (08:30)
[2020-08-02] MEDS: NOREPINEPHRINE 8 MG/250ML KIT 250 ML IV SCH (08:30)
--- NOTE | 2020-08-02 09:07 | NUR ---
Respiratory note: VENT CHANGES MADE. INCREASED RR TO 20, INCREASED VT TO 550. ABG TO BE OBTAINED IN [address] SEXTON.
[2020-08-02] MEDS: SODIUM CHLOR 0.9% PF (SALINE LOCK) 10ML VIAL/SYR IV SCH ×2 (10:43→22:00)
[2020-08-02] MEDS: PANTOPRAZOLE 40 MG/10 ML VIAL INJ IV SCH (10:43)
[2020-08-02] MEDS: DexAMETHasone SOD PHOS 10MG/1ML VIAL INJ IV SCH (10:44)
[2020-08-02] MEDS: CHOLECALCIFEROL (VITD3) 2,000 UNIT CAP PO SCH (10:44)
[2020-08-02] MEDS: ENOXAPARIN SOD 40 MG/0.4 ML SYRINGE SC SCH (10:44)
[2020-08-02] MEDS: ZINC SULFATE 220mg CAP or TAB PO SCH (10:44)
[2020-08-02] MEDS: ASCORBIC ACID 500 MG TAB PO SCH (10:44)
[2020-08-02] MEDS: INSULIN LANTUS (GLARGINE) 1 /0.01ml (100units/ml) SC SCH (11:00)
--- NOTE | 2020-08-02 11:20 | NUR ---
FAMILY/PHONE RECEIVED A PHONE CALL FROM THE PT'S GRANDDAUGHTER, DEYSI. AFTER VERIFYING THE PASSWORD, I ANSWERED HER QUESTIONS AND UPDATED HER ON THE PT'S CURRENT CONDITION. SHE STATED THAT THE FAMILY WANTS TO GIVE HER A FULL 14 DAYS ON THE VENTILATOR TO GIVE HER THE BEST CHANCE AT RECOVERY. I LET HER KNOW THAT I WILL CONVEY THE MESSAGE TO THE MD.
--- NOTE | 2020-08-02 12:34 | NUR ---
Nutrition Followup Note Wt 74.0 kg Pt is covid positive in isolation in the ICU. Pt is still intubated, sedated with EN nutrition support Glucerna 1.2 @50 ml/hr, pt received 719 ml of TF 08/01 per RN nutrition note. Est Energy needs: 1318-3910 kcals (20-23 kcal/kgBW) Est Protein needs: 56-70 gms/day (0.8-1.0 gm/kgBW) Will continue to monitor and reassess prn. Labs: BUN 30H, GLUC 228H, Alb 1.9L BM: Pt with 1 BM 08/01 per RN note Skin: BS 16 mod risk, full details in rn acute care note PES: 1) Increased nutrient needs r/t pt is with no PO intake aeb pt is sedated, intubated, NPO 2) Altered nutrition related lab values r/t current medical condition aeb hyperglycemia, hypocalcemia, hypoalbuminemia Comments Will continue to monitor PO status, skin status, pertinent labs and weight trends. Will f/u in 2-3 days. 1) Continue to carefully monitor pt NPO status 2) Continue EN nutrition support Glucerna 1.2 @ 50ml/hr goal rate as tolerated and per MD approval (Resolved) 3) Gradually advance pt to oral diet when medically feasible and as tolerated 4) If albumin continues trending down consider Prostat 1 pkt BID 5) Continue current plan of care
--- NOTE | 2020-08-02 16:30 | NUR ---
FACETIME WITH PT'S FAMILY, OKAYED BY DIRECTOR.
--- NOTE | 2020-08-02 18:30 | NUR ---
SENT A COVID SWAB FOR IN HOUSE TEST SAMPLE SENT YESTERDAY WAS FOR A SENDOUT TEST WHICH HAS A 1-3 DAY TURN AROUND TIME, PER LAB.
--- NOTE | 2020-08-02 19:30 | NUR ---
REPORT GIVEN TO ARMANDO OWEN RN.
--- NOTE | 2020-08-02 19:49 | NUR ---
ADMITTED WITH DYSPNEA, CHEST PAIN. WENT FROM A NRB TO BEING INTUBATED IN ER. BROUGHT TO ICU. FAILED ATTEMPT AT CPAP TODAY. WBC INCREASING. FEVERS. NSR WITHOUT ECTOPY. ON FIO2 OF 70%. PEEP OF 10. TV 550. AC 24. ON GLUCERNA AT 50CC/HR AND TOLERATING IT WELL. TELLEZ IN PLACE TO DOWN DRAIN BAG. SEDATION: FENTANYL AND VERSED. PREVIOUSLY RECEIVED REMDESIVIR AND CONVALESCENT PLASMA. ANTIBIOTIC: ZOSYN AND VANCOMYCIN. IV ACCESS: YAHIR TRIPLE LUMEN PICC LINE. INFORMED THAT AND GRANDAUGHTER WANT TO WAIT 2 WEEKS BEFORE DISCUSSING CODE STATUS. COVID + . PENDING 2 NEW TESTS TO DETERMINE COVID STATUS.
[2020-08-02] MEDS: Glucerna 1.2 Cal 1Liter BOTTLE GT SCH (20:00)
--- NOTE | 2020-08-02 20:00 | NUR ---
REPOSITIONED TO LEFT SIDE USING THE BED. NOTHING SUCTIONED FROM THE ETT. ORAL CARE DONE. NEW TUBE FEED BOTTLE AND TUBING HUNG. NO RESIDUAL FROM OGT. ABDOMEN ROUND AND SOFT. NO BM. DIANNA AREA CLEAN AND DRY. ALL PULSES PALPABLE. NO EXTREMITY SWELLING. PIP ON VENTILATOR 30. NO FEVER. WBC HAS BEEN CLIMBING. UNKNOWN SOURCE AT THIS TIME. HAS A SCAB ON HER LEFT FOREARM THAT IS OLD, SEALED, NO ERYTHEMA. SMALL AMOUNT OF REDNESS WHERE THE RECTAL TEMP PROBE IS. EAR LOBES ARE BLANCHABLE RED. RICHARD.
--- NOTE | 2020-08-02 22:00 | NUR ---
VSS. REPOSITIONED TO BACK. RT REPOSITIONED THE ETT TO 24. NSR WITHOUT ECTOPY.
[2020-08-03] VITALS (100 sets, daily range): BP systolic 50–151; BP diastolic 39–77
--- NOTE | 2020-08-03 | NUR ---
SEDATED WITH FENTANYL AND VERSED. LUNGS CLEAR. NSR WITHOUT ECTOPY. ABDOMEN ROUND AND SOFT. TELLEZ IN POSITION DRAINING CLEAR YELLOW LIQUID. NO EDEMA. PULSES PALPABLE. FOAM BOOTS AND SCDS ON. RIGHT FOREARM SCAB INTACT. BILATERAL MITTENS ON. NO CHANGE IN VENT SETTINGS.
--- NOTE | 2020-08-03 02:44 | NUR ---
NO CHANGE IN ASSESSMENT. VSS. NO NGT RESIDUAL. TELLEZ IN PLACE AND DRAINING AN ADEQUATE AMOUNT OF CLEAR YELLOW LIQUID. ORAL CARE DONE. REPOSITIONED TO BACK.
--- NOTE | 2020-08-03 04:53 | NUR ---
CHG BATH AND COMPLETE LINEN CHANGE. ORAL CARE. REPOSITIONED. TELLEZ IN PLACE DRAINING CLOUDY YELLOW LIQUID TO DOWN DRAIN BAG. LUNGS CLEAR. SMALL AMOUNT OF WHITE SECRETIONS FROM THE LUNGS.
[2020-08-03] MEDS: ACCU-CHEK COMFORT CURVE STRIP VI SCH ×3 (06:00→18:19)
[2020-08-03] MEDS: InsuLIN REG 1unit/0.01ml Soln (100units/ml) SC SCH ×3 (06:18→18:35)
[2020-08-03] MEDS: PIPERACILLIN-TAZOB 3.375GM 100 ML IV SCH ×3 (06:35→18:10)
[2020-08-03] MEDS: MIDAZOLAM DRIP 50 mg/50mL 50 ML IV SCH ×2 (06:38→13:18)
[2020-08-03] MEDS: fentaNYL Drip 2500mCg/250mlNS 250 ML IV SCH ×2 (06:40→17:17)
[2020-08-03] MEDS: ALBUTEROL SULF 2.5 MG/0.5ML(0.5%) NEB SOLN NEB SCH ×2 (07:27→14:06)
--- NOTE | 2020-08-03 07:30 | NUR ---
REPORT REPORT RECEIVED FROM LEXIE RNARMANDO. PT IN ISOLATION FOR +COVID. VIEWED PT THROUGH GLASS DOORS. ON THE VENTILATOR AND SEDATED. CONTINUE TO MONITOR.
[2020-08-03] MEDS: NOREPINEPHRINE 8 MG/250ML KIT 250 ML IV SCH (07:40)
[2020-08-03] MEDS: PROPOFOL 100 ML IV SCH (07:40)
[2020-08-03 08:17] LABS: Basophils # (auto) 0.2 10 ^3/uL (0-0.2); Basophils % (auto) 1.2 % (0.0-2.0); Eosinophils # (auto) 0 10 ^3/uL (0-0.8); Hematocrit 32.7 % (36.0-46.0); Hemoglobin 10.8 g/dL (12.2-16.2); Lymphocytes # (auto) 0.3 10 ^3/uL (0.4-5.4); Lymphocytes % (auto) 1.6 % (10.0-50.0); Mean Corpuscular Hemoglobin 30.5 pg (28.0-32.0); Mean Corpuscular Hgb Conc. 32.9 g/dL (32.0-36.0); Mean Corpuscular Volume 92.7 fL (80.0-100.0); Monocytes # (auto) 0.7 10 ^3/uL (0-1.3); Monocytes % (auto) 4.4 % (0.0-12.0); Neutrophils # (auto) 15.4 10 ^3/uL (1.6-8.6); Neutrophils % (auto) 92.8 % (37.0-80.0); Platelet Count (auto) 279 10^3/uL (140-450); Red Blood Cells 3.53 10^6/uL (4.0-5.20); White Blood Cell 16.6 10^3/uL (4.4-10.8)
[2020-08-03 08:29] LABS: Albumin 1.7 g/dL (3.4-5.0); Calcium 8.8 mg/dL (8.5-10.1); Potassium 4.6 mmol/L (3.5-5.1)
[2020-08-03 08:33] LABS: BUN/Creatinine Ratio 36.5; Bilirubin, Total 0.2 mg/dL (0.2-1.0); Total Protein 6.1 g/dL (6.4-8.2)
--- NOTE | 2020-08-03 08:45 | NUR ---
ASSESSMENT PT IN ISOLATION FOR + COVID. PT INTUBATED AND SEDATED ON VERSED AND FENTANYL. MINIMAL MOVEMENT OF RIGHT ARM NOTED. MITTENS TO BOTH HANDS T OPREVENT PULLING AT OR REMOVAL OF ANY TUBES .PUPILS 3 AND SLUGGISH. VENTILATOR SETTINGS: AC 24, TV 550, 70% FIO2 AND PEEP OF 10. LUNGS CLEAT THROUGHOUT. SUCTIONED VIA ETT ND ORALLY FOR SMALL AMOUNT OF THIN CLEAR FLUID. O2 SAT OF 93%. PALPABLE PULSES TO ALL EXTREMITIES. +1 PITTING EDEMA NOTED TO TIGHT HAND AND +2 PITTING EDEMA NOTED TO THE LEFT HAND. ABD SOFT WITH HYPOACTIVE BOWEL SOUNDS. GLUCERNA 1.2 INFUSING VIA OGT AT 50 ML/HR, + PLACEMENT AND 10 ML RESIDUAL NOTED. TELLEZ CATHETER DRAINING CLEAR YELLOW URINE. SCDS AND HEEL PROTECTORS TO BLE. BOTH EARS ARE A BLANCHABLE RED. SCAB NOTED TO RFA. TURNED PT AND SACRAL OPTIFOAM IN PLACE AND SKIN UNDER DRESSING IS CLEAR. RAILS UP X4 AND BED IN LOW POSITION FOR PT SAFETY. CONTINUE TO MONITOR.
--- NOTE | 2020-08-03 10:00 | NUR ---
vancomycin Dr Tang here and stated that she does not think the pt still needs to be on vancomycin. Called and left a message for Dr Jake Lucas making him aware of her comments and seeing if he wants to continue with the Vancomycin. trough level drawn recently and awaiting result.
[2020-08-03] MEDS: ENOXAPARIN SOD 40 MG/0.4 ML SYRINGE SC SCH (10:29)
[2020-08-03] MEDS: DexAMETHasone SOD PHOS 10MG/1ML VIAL INJ IV SCH (10:29)
[2020-08-03] MEDS: PANTOPRAZOLE 40 MG/10 ML VIAL INJ IV SCH (10:29)
[2020-08-03] MEDS: SODIUM CHLOR 0.9% PF (SALINE LOCK) 10ML VIAL/SYR IV SCH ×2 (10:29→22:00)
[2020-08-03] MEDS: ASCORBIC ACID 500 MG TAB PO SCH (10:30)
[2020-08-03] MEDS: ZINC SULFATE 220mg CAP or TAB PO SCH (10:30)
[2020-08-03] MEDS: CHOLECALCIFEROL (VITD3) 2,000 UNIT CAP PO SCH (10:30)
[2020-08-03] MEDS: INSULIN LANTUS (GLARGINE) 1 /0.01ml (100units/ml) SC SCH (10:44)
--- NOTE | 2020-08-03 10:45 | NUR ---
RR 28 AND HR 135. INCREASED VERSED TO 9 MG/HR . CONTINUE TO MONITOR.
--- NOTE | 2020-08-03 11:00 | NUR ---
HR 136 AND RR 26. INCREASED FENTANYL TO 200 MCG/HR AND MONITOR FOR EFFECT.
--- NOTE | 2020-08-03 11:37 | NUR ---
MD/PHONE SPOKE WITH DR Wilbert GRACE, WHO IS COVERING FOR DR Jake GRACE, REGARDING VANCOMYCIN. HE WANTS TO CONTINUE WITH THE VANCOMYCIN FOR NOW.
[2020-08-03] MEDS: VANCOMYCIN 1GM/250ML 250 ML IV SCH ×2 (11:41→22:00)
--- NOTE | 2020-08-03 13:15 | NUR ---
MD VISIT PT SEEN BY DR iWlbert GRACE. UPDATED HIM ON THE PT'S CURRENT CONDITION AND NEGATIVE IN-HOUSE COVID TEST. OKAY TO TAKE PT OUT OF ISOLATION. SHOWED HIM THAT THE PHONE NUMBER OF THE PT'S GRANDDAUGHTER IS IN THE COMPUTER AND HE STATED HE WILL CALL HER.
--- NOTE | 2020-08-03 13:35 | NUR ---
SPOKE WITH ICU DIRECTOR REGARDING PT'S NEGATIVE COVID TEST AND SHE STATED THAT PT MUST HAVE 2 CONSECUTIVE NEGATIVE COVID TESTS, DRAWN AT LEAST 24 HOURS APART, BEFORE ISOLATION CAN BED DISCONTINUED.
--- NOTE | 2020-08-03 17:09 | NUR ---
PHONE/FAMILY SPOKE WITH THE PT'S GRANDDAUGHTER, KIRILL, AND UPDATED HER ON THE PT'S CURRENT CONDITION AND POC, AND ANSWERED HER QUESTIONS.
--- NOTE | 2020-08-03 19:30 | NUR ---
REPORT REPORT GIVEN TO ARMANDO OWEN RN.
--- NOTE | 2020-08-03 20:06 | NUR ---
ADMITTED WITH DYSPNEA, CHEST PAIN. WENT FROM A NRB TO BEING INTUBATED IN GABI ON 07/26. BROUGHT TO ICU. WBC DECREASING. NO FEVER. NSR WITHOUT ECTOPY. ON FIO2 OF 60%. PEEP OF 10. TV 550. AC 24. ON GLUCERNA AT 50CC/HR AND TOLERATING IT WELL. TELLEZ IN PLACE TO DOWN DRAIN BAG. SEDATION: FENTANYL AND VERSED. PREVIOUSLY RECEIVED REMDESIVIR AND CONVALESCENT PLASMA. ANTIBIOTIC: ZOSYN AND VANCOMYCIN. IV ACCESS: YAHIR TRIPLE LUMEN PICC LINE. INFORMED THAT AND GRANDAUGHTER WANT TO WAIT 2 WEEKS BEFORE DISCUSSING CODE STATUS. COVID + . PENDING 2 NEW TESTS TO DETERMINE COVID STATUS. INHOUSE TEST CAME BACK NEGATIVE. OUTSIDE LAB PENDING. ANOTHER INHOUSE COVID TEST SENT AT 1800 TODAY.
--- NOTE | 2020-08-03 20:30 | NUR ---
REPOSITIONED TO LEFT SIDE. TUBE FEED RESIDUAL 1CC. ABDOMEN SOFT, ROUND. PICC RIGHT UPPER ARM WITH VERSED AND FENTANYL AT THE SAME PREVIOUS DOSE. LARGE URINE OUTPUT. PUPILS SLUGGISH.
[2020-08-03] MEDS: OMEPRAZOLE 20MG/10ML ORAL SUSP GT SCH (21:00)
[2020-08-03] MEDS ORDERED: FUROSEMIDE 20 MG/2 ML VIAL IV ONE (21:00)
--- NOTE | 2020-08-03 21:00 | NUR ---
DOING WELL ON FIO2 OF 60%. O2 SAT 95-96%
--- NOTE | 2020-08-03 23:00 | NUR ---
REPOSITIONED. ORAL CARE. OGT RESIDUAL 2 CC. RICHARD. DIANNA AREA CLEAN. NEW ORDER FOR LASIX AND PRILOSEC. GIVEN....................................................................................... ............................................................................................ ..........
[2020-08-04] VITALS (100 sets, daily range): BP systolic 106–184; BP diastolic 39–71
--- NOTE | 2020-08-04 | NUR ---
O2 SENSOR CORD DEFAULT. RT WORKING ON IT.
[2020-08-04] MEDS: ALBUTEROL SULF 2.5 MG/0.5ML(0.5%) NEB SOLN NEB SCH ×5 (00:21→22:10)
[2020-08-04] MEDS: IPRATROPIUM BROM 0.5 MG/2.5ML INH SOL NEB SCH ×5 (00:21→22:10)
--- NOTE | 2020-08-04 01:00 | NUR ---
VSS. NO CHANGE IN ASSESSMENT. RICHARD. NO MOVEMENT OF EXTREMITIES. LUNGS CLEAR. ORAL CARE DONE. REPOSITIONED TO THE RIGHT SIDE. ACCUCHECK COVERAGE. NSR WITHOUT ECTOPY. IV SITE SHOWS NO REDNESS OR SWELLING
[2020-08-04] MEDS: MIDAZOLAM DRIP 50 mg/50mL 50 ML IV SCH ×4 (03:00→20:57)
--- NOTE | 2020-08-04 04:00 | NUR ---
AM LABS DONE. ORAL CARE. REPOSITIONED.
[2020-08-04] MEDS: fentaNYL Drip 2500mCg/250mlNS 250 ML IV SCH ×2 (05:00→16:44)
[2020-08-04] MEDS: InsuLIN REG 1unit/0.01ml Soln (100units/ml) SC SCH ×4 (06:00→17:32)
[2020-08-04] MEDS: PIPERACILLIN-TAZOB 3.375GM 100 ML IV SCH ×4 (06:00→17:49)
[2020-08-04] MEDS: ACCU-CHEK COMFORT CURVE STRIP VI SCH ×4 (06:11→17:31)
[2020-08-04] MEDS: hydrALAZINE HCL 20 MG/ML VL IV PRN (06:48)
[2020-08-04 07:10] LABS: Hematocrit 33.1 % (36.0-46.0); Hemoglobin 10.8 g/dL (12.2-16.2); Mean Corpuscular Hemoglobin 30.4 pg (28.0-32.0); Mean Corpuscular Hgb Conc. 32.5 g/dL (32.0-36.0); Mean Corpuscular Volume 93.5 fL (80.0-100.0); Platelet Count (auto) 280 10^3/uL (140-450); Red Blood Cells 3.54 10^6/uL (4.0-5.20); Red Cell Distribution Width 15.2 % (11.8-14.3); White Blood Cell 15.4 10^3/uL (4.4-10.8)
[2020-08-04 07:18] LABS: Basophils % (manual) 0 (0.0-2.0); Blast Cells 0; Eosinophils % (manual) 0 (0-7); Promyelocytes % 0; Reactive Lymphocytes 0
[2020-08-04 07:24] LABS: INR 1.03 (0.9-1.15); Partial Thromboplastin Time 25.9 sec (23.0-31.2)
[2020-08-04 07:35] LABS: Potassium 4.7 mmol/L (3.5-5.1)
[2020-08-04 07:38] LABS: Band Neutrophils % (manual) 1; Lymphocytes % (manual) 3 (10.0-50.0); Metamyelocytes % 3; Monocytes % (manual) 1 (0-12); Myelocytes % 1
[2020-08-04 07:46] LABS: Albumin 1.9 g/dL (3.4-5.0); BUN/Creatinine Ratio 38.2; Bilirubin, Total 0.3 mg/dL (0.2-1.0); CRP High Sensitivity 4.39 mg/dL (< 0.3); Calcium 9.2 mg/dL (8.5-10.1)
[2020-08-04] MEDS: NOREPINEPHRINE 8 MG/250ML KIT 250 ML IV SCH (08:00)
--- NOTE | 2020-08-04 08:10 | NUR ---
ASSESS- PT. LYING IN BED ON VENT SIZE # 7.5 ET, 23 AT THE LIP, AC-24, TV-500, PEEP-10, FIO2-60%. LUNGS CLEAR MAIKOL. INSPIRATORY AND EXPIRATORY. PT. HAS GAG/COUGH REFLEX. RESPONDS TO PAINFUL/TACTILE STIMULI. ON VERSED GTT. AT 9 MG./HR. AND FENTANYL GTT. AT 200 MCG. NO MOVEMENT OF EXTREMITIES SEEN AT THIS TIME. MAIKOL. HAND MITTENS IN PLACE TO PREVENT PULLING OF TUBES. ABD. SOFT, ROUND. BOWEL SOUNDS HYPOACTIVE ALL FOUR QUADRANTS. OGT IN PLACE WITH GLUCERNA AT 50 CC/HR. F/C TO GRAVITY WITH CLEAR YELLOW URINE. RADIAL PULSES STRONG, PALPABLE MAIKOL. DORSALIS PEDAL PULSES STRONG, PALPABLE MAIKOL. SCD'S MAIKOL. LE. 1 PLUS EDEMA MAIKOL. LE MAIKOL. FOAM BOOTS MAIKOL. LE. OPTIFOAM TO SACRUM PREVENTATIVE. RT. FOREARM WITH ABRASION, OPEN TO AIR.
--- NOTE | 2020-08-04 09:57 | NUR ---
ORDER FOR CT ANGIO CHEST WITH CONTRAST FROM LAST NIGHT. OBTAINED CONSENT FROM VIA PHONE WITH 2 RN'S. PT. IS CURRENTLY INTUBATED WITH FIO2-60%. INFORMED HORACIO IN RADIOLOGY WHEN PT. IS STABLE WILL GO TO CT. RT CHRISTINE MADE AWARE OF CT CHEST AND CONFIRMS PT. NEEDS TO BE STABLE TO GO TO CT.
--- NOTE | 2020-08-04 10:15 | NUR ---
02 SATS 95%. CHRISTINE, RT DECREASED FIO2 ON VENT TO 55%. NO SIGNS OF RESP. DISTRESS.
[2020-08-04] MEDS: PANTOPRAZOLE 40 MG/10 ML VIAL INJ IV SCH (10:19)
[2020-08-04] MEDS: CHOLECALCIFEROL (VITD3) 2,000 UNIT CAP PO SCH (10:19)
[2020-08-04] MEDS: VANCOMYCIN 1GM/250ML 250 ML IV SCH ×2 (10:19→22:00)
[2020-08-04] MEDS: ENOXAPARIN SOD 40 MG/0.4 ML SYRINGE SC SCH (10:19)
[2020-08-04] MEDS: ZINC SULFATE 220mg CAP or TAB PO SCH (10:19)
[2020-08-04] MEDS: ASCORBIC ACID 500 MG TAB PO SCH (10:19)
[2020-08-04] MEDS: DexAMETHasone SOD PHOS 10MG/1ML VIAL INJ IV SCH (10:21)
[2020-08-04] MEDS: SODIUM CHLOR 0.9% PF (SALINE LOCK) 10ML VIAL/SYR IV SCH ×2 (10:21→22:00)
[2020-08-04] MEDS: INSULIN LANTUS (GLARGINE) 1 /0.01ml (100units/ml) SC SCH (10:21)
[2020-08-04] MEDS: OMEPRAZOLE 20MG/10ML ORAL SUSP GT SCH (10:22)
[2020-08-04] MEDS: PROPOFOL 100 ML IV SCH (11:00)
--- NOTE | 2020-08-04 11:42 | NUR ---
Nutrition Followup Note Wt 64.0 kg (Pt recorded wt is significantly less than last followup note recorded wt of 74.0 kg.) Pt is covid positive in isolation in the ICU. Pt is still intubated, sedated with EN nutrition support Glucerna 1.2 @50 ml/hr, pt received full feeding, tolerated well per RN note. Est Energy needs: 4430-2010 kcals (20-23 kcal/kgBW) Est Protein needs: 56-70 gms/day (0.8-1.0 gm/kgBW) Will continue to monitor and reassess prn. Labs: BUN 34H, GLUC 312H, Alb 1.9L BM: Pt with 1 BM 08/01 per RN note Skin: BS 14 mod risk, full details in career development coordinator note PES: 1) Increased nutrient needs r/t pt is with no PO intake aeb pt is sedated, intubated, NPO 2) Altered nutrition related lab values r/t current medical condition aeb hyperglycemia, hypocalcemia, hypoalbuminemia Comments Will continue to monitor PO status, skin status, pertinent labs and weight trends. Will f/u in 2-3 days. 1) Continue to carefully monitor pt NPO status 2) Continue EN nutrition support Glucerna 1.2 @ 50ml/hr goal rate as tolerated and per MD approval (Resolved) 3) Gradually advance pt to oral diet when medically feasible and as tolerated 4) If albumin continues trending down consider Prostat 1 pkt BID 5) Continue current plan of care
--- NOTE | 2020-08-04 13:00 | NUR ---
DR. Sabino MCCABE ROUNDED ON PT. PREVIOUSLY. STEPHANIE ALANIZ INFORMED ME DR. Sabino MCCABE DECREASED FIO2 ON VENT TO 50%. O2 SATS 94%-95%.
--- NOTE | 2020-08-04 14:10 | NUR ---
AUSCULTATED GOOD PLACEMENT WITH OGT. NO EMESIS. NO BM. BOWEL SOUNDS HYPOACTIVE ALL FOUR QUADRANTS. RESIDUAL <5 CC. TOLERATING GLUCERNA AT 50 CC/HR. GOAL RATE.
[2020-08-04] MEDS: Glucerna 1.2 Cal 1Liter BOTTLE GT SCH (14:32)
--- NOTE | 2020-08-04 20:00 | NUR ---
ORAL CARE DONE. REPOSITIONED TO THE RIGHT SIDE. TEMP 99. SHEET COVER REMOVED. SUCTIONED THE ETT FOR A SMALL AMOUNT OF WHITE SECRETIONS. ABDOMEN ROUND AND SOFT. ALL PULSES PALPABLE. SCDS AND FOAM BOOTS ON. RIDING THE VENTILATOR. NSR WITHOUT ECTOPY.
--- NOTE | 2020-08-04 20:58 | NUR ---
ADMITTED WITH DYSPNEA, CHEST PAIN. WENT FROM A NRB TO BEING INTUBATED IN GABI ON 07/26. BROUGHT TO ICU. WBC DECREASING. NO FEVER. NSR WITHOUT ECTOPY. ON FIO2 OF 50%. PEEP OF 10. TV 550. AC 24. ON GLUCERNA AT 50CC/HR TOLERATING IT POOR AT THE MOMENT .RESIDUAL WAS 100CC.DISCARDED THE RESIDUAL AND TURNED THE RATE DOWN TO [address] TO DOWN DRAIN BAG. SEDATION: FENTANYL AND VERSED. PREVIOUSLY RECEIVED REMDESIVIR AND CONVALESCENT PLASMA. ANTIBIOTIC: ZOSYN AND VANCOMYCIN. IV ACCESS: YAHIR TRIPLE LUMEN PICC LINE. INFORMED THAT AND GRANDAUGHTER WANT TO WAIT 2 WEEKS BEFORE DISCUSSING CODE STATUS. COVID + . PENDING 2 NEW TESTS TO DETERMINE COVID STATUS. INHOUSE TEST CAME BACK NEGATIVE. OUTSIDE LAB WAS POSITIVE FROM THE . ANOTHER INHOUSE COVID TEST SENT AT 1800 YESTERDAY TURNED OUT NEGATIVE.
--- NOTE | 2020-08-04 22:00 | NUR ---
REPOSITIONED . ORAL CARE DONE. GOOD URINE OUTPUT. IV SITE SHOWS NO REDNESS OR SWELLING. ST WITHOUT ECTOPY.
[2020-08-05] VITALS (95 sets, daily range): BP systolic 111–155; BP diastolic 43–85
--- NOTE | 2020-08-05 | NUR ---
NO NEW CHANGES. NO FEVER. NSR ST WITHOUT ECTOPY. LUNGS CLEAR. ORAL CARE DONE. ABDOMEN ROUND AND SOFT. 40 CC RESIDUAL. DECREASED THE TUBE FEED TO 30CC/HR. REPLACED ACCYCHECK OF 268
[2020-08-05] MEDS: MIDAZOLAM DRIP 50 mg/50mL 50 ML IV SCH ×4 (00:30→18:53)
[2020-08-05 04:24] LABS: Hematocrit 34.4 % (36.0-46.0); Hemoglobin 11.2 g/dL (12.2-16.2); Mean Corpuscular Hemoglobin 30.2 pg (28.0-32.0); Mean Corpuscular Hgb Conc. 32.7 g/dL (32.0-36.0); Mean Corpuscular Volume 92.5 fL (80.0-100.0); Platelet Count (auto) 297 10^3/uL (140-450); Red Blood Cells 3.72 10^6/uL (4.0-5.20); Red Cell Distribution Width 15.1 % (11.8-14.3); White Blood Cell 15.6 10^3/uL (4.4-10.8)
[2020-08-05 04:28] LABS: Band Neutrophils % (manual) 0; Basophils % (manual) 0 (0.0-2.0); Blast Cells 0; Eosinophils % (manual) 0 (0-7); Metamyelocytes % 0; Promyelocytes % 0; Reactive Lymphocytes 0
[2020-08-05 04:39] LABS: INR 1.13 (0.9-1.15)
[2020-08-05 04:50] LABS: Albumin 2.1 g/dL (3.4-5.0); Calcium 8.8 mg/dL (8.5-10.1); Magnesium 2.2 mg/dL (1.6-2.6); Potassium 4.9 mmol/L (3.5-5.1)
[2020-08-05 04:58] LABS: BUN/Creatinine Ratio 38.5; Bilirubin, Direct 0.2 mg/dL (0-0.2); Bilirubin, Total 0.3 mg/dL (0.2-1.0); CRP High Sensitivity 2.5 mg/dL (< 0.3); Total Protein 6.6 g/dL (6.4-8.2)
--- NOTE | 2020-08-05 05:10 | NUR ---
DURING THE BATH HER HR WENT UP TO 150. EXTRA BOLUS OF VERSED AND FENTANYL DID NOT RESOLVE IT THIS TIME. SHE DOES THIS EVERY DAY. DR GERMAIN NOTIFIED. ORDER FOR NS 500CC BOLUS AND CONSULT DR BLACK CARDIOLOGY.
[2020-08-05] MEDS: InsuLIN REG 1unit/0.01ml Soln (100units/ml) SC SCH ×4 (05:15→18:55)
[2020-08-05] MEDS ORDERED: SODIUM CHLORIDE 0.9% 500 ML IV ONE (05:15)
[2020-08-05] MEDS: NOREPINEPHRINE 8 MG/250ML KIT 250 ML IV SCH (05:15)
--- NOTE | 2020-08-05 05:35 | NUR ---
HR DOWN TO 144 FROM THE 150-160 IT WAS. NS BOLUS GOING.
[2020-08-05 05:53] LABS: Lymphocytes % (manual) 3 (10.0-50.0); Monocytes % (manual) 5 (0-12); Myelocytes % 2
[2020-08-05] MEDS: PROPOFOL 100 ML IV SCH (06:00)
[2020-08-05] MEDS: PIPERACILLIN-TAZOB 3.375GM 100 ML IV SCH ×4 (06:00→18:51)
[2020-08-05] MEDS: ACCU-CHEK COMFORT CURVE STRIP VI SCH ×4 (06:00→18:52)
[2020-08-05] MEDS: IPRATROPIUM BROM 0.5 MG/2.5ML INH SOL NEB SCH ×3 (06:44→18:29)
[2020-08-05] MEDS: ALBUTEROL SULF 2.5 MG/0.5ML(0.5%) NEB SOLN NEB SCH ×3 (06:44→18:29)
--- NOTE | 2020-08-05 06:56 | NUR ---
HR 134. IMPROVING AFTER INCREASING THE VERSED TO MAXIMUM 15 MG
--- NOTE | 2020-08-05 07:16 | NUR ---
HR RESOLVED TO 102.
--- NOTE | 2020-08-05 08:00 | NUR ---
AM ASSESSMENT COMPLETED REMAINS INTUBATED ON COVID ISOLATION SEDATED ON 200 MCG/KG/MIN OF FENTANYL & 15 MG/HR OF VERSED, PUPILS WITH A SLUGGISH REACTION TO LIGHT, GOOD COUGH AND GAG REFLEX WHEN PERFORMING ORAL CARE. PT HAS MODERATE AMOUNT OF THICK AGUILAR SECRETIONS. LS CTA AFTER SUCTIONING ON UPPER LOBES & DIMINISHED ON THE BASES. SR , NO ECTOPY, VSS. NO SKIN BREAK DOWN. FC SECURE TO THIGH WITH SECUREMENT DEVICE, DRAINING CLEAR YELLOW URINE TO GRAVITY. ALL MONITOR ALARMS VERIFIED. PT'S LINE CLEAN AND DRIED. REPOSITIONED PT FOR COMFORT AT THIS TIME. ORAL CARE PROVIDED PER VAP PROTOCOL.
[2020-08-05] MEDS: OMEPRAZOLE 20MG/10ML ORAL SUSP GT SCH (09:49)
[2020-08-05] MEDS: VANCOMYCIN 1GM/250ML 250 ML IV SCH ×2 (09:50→23:03)
[2020-08-05] MEDS: DexAMETHasone SOD PHOS 10MG/1ML VIAL INJ IV SCH (09:50)
[2020-08-05] MEDS: PANTOPRAZOLE 40 MG/10 ML VIAL INJ IV SCH (09:50)
[2020-08-05] MEDS: SODIUM CHLOR 0.9% PF (SALINE LOCK) 10ML VIAL/SYR IV SCH ×2 (09:51→23:09)
[2020-08-05] MEDS: ZINC SULFATE 220mg CAP or TAB PO SCH (09:51)
[2020-08-05] MEDS: ENOXAPARIN SOD 40 MG/0.4 ML SYRINGE SC SCH (09:52)
[2020-08-05] MEDS: CHOLECALCIFEROL (VITD3) 2,000 UNIT CAP PO SCH (09:52)
[2020-08-05] MEDS: ASCORBIC ACID 500 MG TAB PO SCH (09:52)
[2020-08-05] MEDS: INSULIN LANTUS (GLARGINE) 1 /0.01ml (100units/ml) SC SCH (09:53)
--- NOTE | 2020-08-05 11:36 | NUR ---
DR. Wilbert VALVERDE ROUNDING ON PT NEW ORDERS RECEIVED TO CANCEL CURRENT PHYS THER AND TO CONSULT NEW PHYS THER, WHOM IS COVERING THIS WEEKEND. WILL NOTIFY HIM WHEN ROUNDING. ALSO RECEIVED ORDERS TO DECREASE PEEP ON PT. AWARE THAT CTA OF LUNGS CANNOT BE DONE ON CURRENT PEEP D/T HIGH RISK OF CAUSING A PNEUMO.
[2020-08-05] MEDS ORDERED: IOHEXOL 350 MG/ML 100ML IJ ONE (14:09)
[2020-08-05] MEDS: fentaNYL Drip 2500mCg/250mlNS 250 ML IV SCH (14:14)
--- NOTE | 2020-08-05 14:30 | NUR ---
PT TAKEN TO CT SCAN FOR CT ANGIO ACCOMPANIED BY RT, RN, AND EXHIBIT ARTIST.
--- NOTE | 2020-08-05 15:06 | NUR ---
RETURNED FROM CT SCAN PT TOLERATED CT SCAN WELL. PT WAS PLACED ON 100% FIO2 TEMPORARILY S/P CT SCAN TO LET HER RECOVER FROM ALL THE FREQUENT MOVEMENT AND TRANSFERS FROM BED TO CT BED AND BACK TO BED. SEE RT DOCUMENTATION. PT GIVEN A BATH S/P CT SCAN, ALL LINEN CHANGED AND REPOSITIONED FOR COMFORT.
--- NOTE | 2020-08-05 16:45 | NUR ---
NOTIFIED DR. Sabino VALVERDE OF PT'S CTA RESULTS AND PT'S SON JC WANTING TO BE UPDATED ON PT'S CONDITION. I GAVE PT'S SON'S TELEPHONE #. WILL UPDATE PT'S SON.
--- NOTE | 2020-08-05 16:50 | NUR ---
DR. Jake GRACE C/B HE STATES HE SPOKE TO PT'S SON JC, HE UPDATED HIM ON PT'S CONDITION AND HE AGREED THAT PT'S NIECE KIRILL IS THE SPOKE'S PERSON FOR PT'S CARE. SHE IS THE ONE WHO IS BEEN UPDATED BY ALL STAFF AND PHYSICIANS ALL ALONG AND STAFF CAN'T BE UPDATING EVERY SINGLE FAMILY MEMBER.
--- NOTE | 2020-08-05 18:00 | NUR ---
PT'S NIECE CALLED TO GET AN UPDATE ON PT'S CONDITION. I UPDATED HER ON PT'S CONDITION, INCLUDING CTA RESULTS. I INFORMED HER THAT [employer] STILL HAS NOT ROUNDED ON PT. TO CALL BACK TOMORROW FOR FURTHER UPDATED ON POC.
--- NOTE | 2020-08-05 21:00 | NUR ---
SEDATION VACATION NOT PERFORMED AT THIS TIME IT IS INAPPROPRIATE; WILL CONT. TO MONITOR.
[2020-08-06] VITALS (100 sets, daily range): BP systolic 107–143; BP diastolic 41–56
[2020-08-06] MEDS: IPRATROPIUM BROM 0.5 MG/2.5ML INH SOL NEB SCH ×4 (00:17→22:00)
[2020-08-06] MEDS: ALBUTEROL SULF 2.5 MG/0.5ML(0.5%) NEB SOLN NEB SCH ×4 (00:17→22:00)
[2020-08-06] MEDS: PROPOFOL 100 ML IV SCH (02:00)
[2020-08-06] MEDS: NOREPINEPHRINE 8 MG/250ML KIT 250 ML IV SCH (05:15)
[2020-08-06] MEDS: ACCU-CHEK COMFORT CURVE STRIP VI SCH ×4 (06:00→18:10)
[2020-08-06] MEDS: PIPERACILLIN-TAZOB 3.375GM 100 ML IV SCH ×4 (06:00→18:36)
[2020-08-06] MEDS: InsuLIN REG 1unit/0.01ml Soln (100units/ml) SC SCH ×4 (06:00→18:35)
[2020-08-06 07:12] LABS: Hematocrit 33.6 % (36.0-46.0); Hemoglobin 11.1 g/dL (12.2-16.2); Mean Corpuscular Hemoglobin 30.5 pg (28.0-32.0); Mean Corpuscular Hgb Conc. 33.1 g/dL (32.0-36.0); Mean Corpuscular Volume 92.1 fL (80.0-100.0); Platelet Count (auto) 270 10^3/uL (140-450); Red Blood Cells 3.64 10^6/uL (4.0-5.20); White Blood Cell 16.7 10^3/uL (4.4-10.8)
[2020-08-06 07:14] LABS: Basophils % (manual) 0 (0.0-2.0); Blast Cells 0; Eosinophils % (manual) 0 (0-7); Myelocytes % 0; Promyelocytes % 0; Reactive Lymphocytes 0
[2020-08-06 07:20] LABS: Potassium 4.9 mmol/L (3.5-5.1)
[2020-08-06 07:26] LABS: INR 1.02 (0.9-1.15)
--- NOTE | 2020-08-06 07:30 | NUR ---
Respiratory note: DR GRACE CALLED, AND READ BACK [facility] CRITICAL VALUES. ONLY CHANGE ORDERED IS TO CONTINUE TO TITRATE PT FIO2 TO MAINTAIN SPO2 >92%. RN AWARE. WILL CONTINUE TO MONITOR PT. CHARTING COMPLETE FROM OUTSIDE OF PT ROOM PER COVID-19 PRECAUTIONS/PROTOCOL.
[2020-08-06 07:34] LABS: BUN/Creatinine Ratio 38.4; Bilirubin, Direct 0.1 mg/dL (0-0.2); Bilirubin, Total 0.3 mg/dL (0.2-1.0); Magnesium 2.4 mg/dL (1.6-2.6); Total Protein 6.3 g/dL (6.4-8.2)
--- NOTE | 2020-08-06 08:15 | NUR ---
OPENING NOTE RECEIVED REPORT FROM NEEDLE MAKER RN. PATIENT INTUBATED SEDATED ON VERSED AND FENT, TOLERATING VENTILATOR. FOLLOWING CURRENT HOSPITAL POLICY AND PROCEDURE REGARDING COVID 19 ISOLATION. SR 70 WITH BP 110/80 ON NO PRESSURE SUPPORT MEDICATIONS. RIGHT UPPER ARM PICC LINE CDI TRANSFUSING ALL MEDICATIONS. FOR GTTS AND THEIR TITRATIONS SEE IV SPREAD SHEET. OGT PATENT WITH FEEDING @ 40 M/HR WITH 20 ML RESIDUAL. CONTINUED FEEDINGS. PLACED PILLOWS FOR COMFORT. ALL FALL AND SAFETY PRECAUTIONS IN PLACE. FOR MORE INFORMATION SEE INTERVENTIONS.
[2020-08-06 08:54] LABS: Band Neutrophils % (manual) 5; Lymphocytes % (manual) 3 (10.0-50.0); Metamyelocytes % 1; Monocytes % (manual) 3 (0-12)
[2020-08-06] MEDS: OMEPRAZOLE 20MG/10ML ORAL SUSP GT SCH (09:47)
[2020-08-06] MEDS: SODIUM CHLOR 0.9% PF (SALINE LOCK) 10ML VIAL/SYR IV SCH ×2 (09:48→21:57)
[2020-08-06] MEDS: PANTOPRAZOLE 40 MG/10 ML VIAL INJ IV SCH (09:48)
[2020-08-06] MEDS: ZINC SULFATE 220mg CAP or TAB PO SCH (09:48)
[2020-08-06] MEDS: DexAMETHasone SOD PHOS 10MG/1ML VIAL INJ IV SCH (09:48)
[2020-08-06] MEDS: ENOXAPARIN SOD 40 MG/0.4 ML SYRINGE SC SCH (09:49)
[2020-08-06] MEDS: CHOLECALCIFEROL (VITD3) 2,000 UNIT CAP PO SCH (09:49)
[2020-08-06] MEDS: ASCORBIC ACID 500 MG TAB PO SCH (09:49)
[2020-08-06] MEDS: VANCOMYCIN 1GM/250ML 250 ML IV SCH ×2 (09:51→22:00)
--- NOTE | 2020-08-06 10:00 | NUR ---
SMALL BM CLEANED SKIN REASSESSED AND NO NEW BREAK DOWN NOTED
--- NOTE | 2020-08-06 10:30 | NUR ---
RECEIVED PHONE CALL FROM MD GRACE UPDATED ON PATIENT STATUS. NO NEW ORDERS RECEIVED
[2020-08-06] MEDS: INSULIN LANTUS (GLARGINE) 1 /0.01ml (100units/ml) SC SCH (10:41)
--- NOTE | 2020-08-06 11:47 | NUR ---
RECEIVED PHONE CALL FROM FAMILY SPOKE WITH KIRILL, UPDATED ON PATIENT STATUS. ALL QUESTIONS ADDRESSED AT THIS TIME.
--- NOTE | 2020-08-06 11:54 | NUR ---
Nutrition Followup Note Wt 66.5 kg Pt is covid positive in isolation in the ICU. Pt is still intubated, off propofol with EN nutrition support Glucerna 1.2 @50 ml/hr, providing 1440 kcals and 67 gm proteins Est Energy needs: 5044-9554 kcals (20-23 kcal/kgBW), Est Protein needs: 56-70 gms/day (0.8-1.0 gm/kgBW). Will continue to monitor and reassess prn. Labs: BUN 33 H GLU 271 H CO2 36 H ALB 2.0 L BM: Pt with 1 BM 08/01 per RN note Skin: BS 14 mod risk, full details in resident care supervisor note PES: 1) Increased nutrient needs r/t pt is with no PO intake aeb pt is sedated, intubated, NPO 2) Altered nutrition related lab values r/t current medical condition aeb hyperglycemia, hypocalcemia, hypoalbuminemia Comments: Will continue to monitor NPO status, EN tolerance, skin status, pertinent labs and weight trends. Will f/u in 2-3 days. 1) Gradually advance pt to oral diet when medically feasible and as tolerated. 2) If albumin continues trending down consider Prostat 1 pkt BID. 3) Continue current plan of care
[2020-08-06] MEDS: MIDAZOLAM DRIP 50 mg/50mL 50 ML IV SCH (12:09)
--- NOTE | 2020-08-06 12:17 | NUR ---
MD Wilbert GRACE AT BEDSIDE UPDATED ON PATIENT STATUS, NO NEW ORDERS RECEIVED. INFORMED DAUGHTER WOULD LIKE TO SPEAK WITH HIM.
--- NOTE | 2020-08-06 15:46 | NUR ---
WOUND CARE NOTE: WOUND CARE IN TO SEE PATIENT FOR SKIN INTEGRITY MONITORING. PATIENT REMAINS INTUBATED AND SEDATED ON ICU LOW AIR LOSS BED. PATIENT CONTINUES TO REMAIN WOUND FREE. PATIENT IS RECEIVING BID/PRN APPLICATION OF MOISTURE BARRIER CREAM TO SACRUM AND BUTTOCKS A PREVENTATIVE. RECOMMEND: FREQUENT Q2HOUR REPOSITIONING CONDITION PERMITS. REDISTRIBUTE PRESSURE UTILIZING PILLOWS AND WEDGES. CONTINUE WITH WOUND CARE PREVENTION ORDERS PRESCRIBED BY MD. CONTINUE SKIN/WOUND CARE PLAN. CONTINUED MONITORING BY WOUND CARE TEAM.
[2020-08-06] MEDS: fentaNYL Drip 2500mCg/250mlNS 250 ML IV SCH ×2 (16:55→18:35)
--- NOTE | 2020-08-06 18:00 | NUR ---
SMALL BM CLEANED PATIENT, SKIN REASSESSED AND NO NEW BREAK DOWN NOTED
--- NOTE | 2020-08-06 18:46 | NUR ---
COLLECTED NEW COVID TEST
--- NOTE | 2020-08-06 19:00 | NUR ---
Opening shift note: Report received on patient. Patient intubated, VENT settings: AC 24/TV 550/ FIO2 50%/ PEEP 8 and O2 SAT 96%. Bilateral lung sounds clear and diminished. Right upper arm triple lumen PICC infusing Fent and Versed. OG tube in place currently running Glucerna @ 40mL/hr. Mason catheter draining via gravity with yellow urine. TEMP probe in place. Safety precautions in place. Will continue to monitor. Patient on isolation for COVID 19.
--- NOTE | 2020-08-06 19:16 | NUR ---
COVID TEST WALKED TO LAB BY RAMANDEEP BROWN
--- NOTE | 2020-08-06 20:00 | NUR ---
Residuals: No residuals noted from tube feeding. Tubing for feeding and Glucerna bottle changed. Feeding continued at 40mL/hr. RN will continue to monitor and assess.
--- NOTE | 2020-08-06 20:58 | NUR ---
Family: Family called for POC update. Password verified. Family updated on patient condition and status.
--- NOTE | 2020-08-06 23:26 | NUR ---
Dr. Aguilar at bedside: Dr. Aguilar rounding on patient. MD made aware of patient's condition and status. MD wants FIO2 decreased to 45%. RT also at bedside and aware.
[2020-08-07] VITALS (97 sets, daily range): BP systolic 113–156; BP diastolic 43–66
--- NOTE | 2020-08-07 | NUR ---
Tube feeding: Residual check showed no residuals at this time. Patient appears to be tolerating feeding. Feeding increased to 50mL/hr (goal rate). RN will continue to monitor and assess.
[2020-08-07] MEDS: PROPOFOL 100 ML IV SCH (02:00)
--- NOTE | 2020-08-07 03:00 | NUR ---
Residuals: Patient continues with no residuals at this time. Patient is currently tolerating feeding at 50mL/hr. RN will continue to monitor and assess patient.
--- NOTE | 2020-08-07 03:26 | NUR ---
Large BM: Patient had a large BM. Milena care was provided as well as a linen change. Opti foam to sacrum was also changed. Patient repositioned for comfort. Patient tolerated intervention well.
[2020-08-07 04:18] LABS: Basophils # (auto) 0 10 ^3/uL (0-0.2); Basophils % (auto) 0.2 % (0.0-2.0); Eosinophils # (auto) 0 10 ^3/uL (0-0.8); Eosinophils % (auto) 0.1 % (0.0-7.0); Hematocrit 33.1 % (36.0-46.0); Hemoglobin 10.9 g/dL (12.2-16.2); Lymphocytes # (auto) 0.4 10 ^3/uL (0.4-5.4); Lymphocytes % (auto) 2.2 % (10.0-50.0); Mean Corpuscular Hemoglobin 30.8 pg (28.0-32.0); Mean Corpuscular Volume 93.2 fL (80.0-100.0); Monocytes # (auto) 0.9 10 ^3/uL (0-1.3); Monocytes % (auto) 5.1 % (0.0-12.0); Neutrophils # (auto) 16.6 10 ^3/uL (1.6-8.6); Neutrophils % (auto) 92.4 % (37.0-80.0); Platelet Count (auto) 312 10^3/uL (140-450); Red Blood Cells 3.55 10^6/uL (4.0-5.20); Red Cell Distribution Width 14.9 % (11.8-14.3); White Blood Cell 17.9 10^3/uL (4.4-10.8)
[2020-08-07 04:38] LABS: Potassium 4.6 mmol/L (3.5-5.1)
[2020-08-07 04:54] LABS: Albumin 2.1 g/dL (3.4-5.0); BUN/Creatinine Ratio 39.8; Bilirubin, Direct 0.1 mg/dL (0-0.2); Bilirubin, Total 0.3 mg/dL (0.2-1.0); Magnesium 2.2 mg/dL (1.6-2.6); Total Protein 6.1 g/dL (6.4-8.2)
[2020-08-07] MEDS: NOREPINEPHRINE 8 MG/250ML KIT 250 ML IV SCH (05:01)
[2020-08-07] MEDS: InsuLIN REG 1unit/0.01ml Soln (100units/ml) SC SCH ×5 (06:00→23:46)
[2020-08-07] MEDS: PIPERACILLIN-TAZOB 3.375GM 100 ML IV SCH ×5 (06:00→23:47)
[2020-08-07] MEDS: ACCU-CHEK COMFORT CURVE STRIP VI SCH ×5 (06:00→23:46)
--- NOTE | 2020-08-07 06:04 | NUR ---
Large BM: Patient had another large BM. Milena care was provided as well as a linen change. Opti foam to sacrum was replaced. Patient repositioned for comfort. Patient tolerated intervention well.
[2020-08-07 06:27] LABS: INR 1.03 (0.9-1.15); Partial Thromboplastin Time 26.5 sec (23.0-31.2)
[2020-08-07] MEDS: ALBUTEROL SULF 2.5 MG/0.5ML(0.5%) NEB SOLN NEB SCH ×3 (07:03→22:25)
[2020-08-07] MEDS: IPRATROPIUM BROM 0.5 MG/2.5ML INH SOL NEB SCH ×3 (07:03→22:25)
--- NOTE | 2020-08-07 07:13 | NUR ---
Respiratory note: RECEIVED PATIENT ON V17 V200 VENT ORALLY INTUBATED WITH 7.5 ETT SECURED VIA PINA AT THE 23CM MARKING AT THE LIP, AND IS MECHANICALLY VENTILATED WITH THE CHARTED SETTINGS. SPO2 94%, LUNG SOUNDS DIM TO, SMALL AMOUNT OF THIN CLEAR SECRETIONS WHEN SUCTIONED. SKIN IS WARM/DRY TO THE TOUCH AND IS INTACT NEAR PINA SITE. THERE IS AN OGT IN PLACE AND IT IS SECURED TO THE ETT, A PICC LINE IS PLACED IN THE RIGHT ARM. PITTING EDEMA NOTED IN BILATERAL UPPER AND LOWER EXTREMITIES. AM CXR ASSESSED AND IT SHOWS ETT IN SATISFACTORY POSITION SITTING APPROX 4.7CM ABOVE THE HERB, NO INDICATION TO ADJUST TUBE. PATIENT IS UNRESPONSIVE TO BOTH VERBAL/TACTILE STIMULI AND IS SEDATED ON VERSED AND FENTANYL DRIPS. SHE IS RESTING COMFORTABLY AND TOLERATING VENT WELL, NO CHANGES MADE. VENT PLUGGED INTO RED OUTLET AND ALL ALARMS ARE SET AND AUDIBLE. WILL CONTINUE TO ASSESS PATIENT WELL VENTILATOR FUNCTION. [facility] RUN INLINE.
--- NOTE | 2020-08-07 07:45 | NUR ---
OPENING NOTE RECEIVED REPORT FROM SNAP ATTACHER RN. PATIENT INTUBATED SEDATED ON VERSED AND FENT, TOLERATING VENTILATOR. FOLLOWING CURRENT HOSPITAL POLICY AND PROCEDURE REGARDING COVID 19 ISOLATION. SR 80 WITH BP 120/75 ON NO PRESSURE SUPPORT MEDICATIONS. RIGHT UPPER ARM PICC LINE CDI TRANSFUSING ALL MEDICATIONS. FOR GTTS AND THEIR TITRATIONS SEE IV SPREAD SHEET. OGT PATENT WITH FEEDING @ 50 M/HR WITH 30 ML RESIDUAL. CONTINUED FEEDINGS. PLACED PILLOWS FOR COMFORT. ALL FALL AND SAFETY PRECAUTIONS IN PLACE. FOR MORE INFORMATION SEE INTERVENTIONS.
--- NOTE | 2020-08-07 09:50 | NUR ---
RECEIVED PHONE CALL FROM GRANDDAUGHTER RECEIVED CORRECT PASSWORD, UPDATED ON PATIENT STATUS. ALL QUESTIONS ADDRESSED AT THIS TIME
[2020-08-07] MEDS: OMEPRAZOLE 20MG/10ML ORAL SUSP GT SCH (09:55)
[2020-08-07] MEDS: DexAMETHasone SOD PHOS 10MG/1ML VIAL INJ IV SCH (09:56)
[2020-08-07] MEDS: ZINC SULFATE 220mg CAP or TAB PO SCH (09:56)
[2020-08-07] MEDS: SODIUM CHLOR 0.9% PF (SALINE LOCK) 10ML VIAL/SYR IV SCH ×2 (09:56→22:00)
[2020-08-07] MEDS: PANTOPRAZOLE 40 MG/10 ML VIAL INJ IV SCH (09:56)
[2020-08-07] MEDS: VANCOMYCIN 1GM/250ML 250 ML IV SCH (09:56)
[2020-08-07] MEDS: ASCORBIC ACID 500 MG TAB PO SCH (10:06)
[2020-08-07] MEDS: ENOXAPARIN SOD 40 MG/0.4 ML SYRINGE SC SCH (10:16)
[2020-08-07] MEDS: CHOLECALCIFEROL (VITD3) 2,000 UNIT CAP PO SCH (10:16)
[2020-08-07] MEDS: INSULIN LANTUS (GLARGINE) 1 /0.01ml (100units/ml) SC SCH (10:17)
--- NOTE | 2020-08-07 10:17 | NUR ---
MD RONQUILLO AT BEDSIDE UPDATED ON PATIENT STATUS. INFORMED ABOUT FAMILY TRYING TO CONTACT MD. NO NEW ORDERS RECEIVED.
[2020-08-07] MEDS: MIDAZOLAM DRIP 50 mg/50mL 50 ML IV SCH ×2 (14:47→18:37)
[2020-08-07] MEDS: fentaNYL Drip 2500mCg/250mlNS 250 ML IV SCH (16:48)
--- NOTE | 2020-08-07 17:00 | NUR ---
MEDIUM BM CLEANED SKIN REASSESSED AND NO NEW BREAK DOWN NOTED
--- NOTE | 2020-08-07 18:31 | NUR ---
PASSWORD UPDATE VERIFIED GRANDDAUGHTER KIRILL AND AUNG. REQUEST TO CHANGE PASSWORD TO [id number] FROM ERASMO
--- NOTE | 2020-08-07 19:00 | NUR ---
Opening shift note: Report received on patient. Patient intubated, VENT settings: AC 24/TV 550/ FIO2 50%/ PEEP 8 and O2 SAT 97%. Bilateral lung sounds clear and diminished. Right upper arm triple lumen PICC infusing Fent and Versed. OG tube in place currently running Glucerna @ 50mL/hr. Mason catheter draining via gravity with yellow urine. TEMP probe in place. Safety precautions in place. Will continue to monitor. Patient on isolation for COVID 19.
--- NOTE | 2020-08-07 19:20 | NUR ---
COVID swab walked to lab for in house covid.
--- NOTE | 2020-08-07 22:35 | NUR ---
Family: Family called for POC update. New Password verified. Family updated on patient condition and status.
--- NOTE | 2020-08-07 22:49 | NUR ---
Dr. Aguilar rounding: Dr. Aguilar rounding on patient. MD made aware that family want to speak with him. Per MD, he will round in the morning and speak with family at that time. Per MD, he wants patient to be at a PEEP of 8 and FIO2 at 40% and patient may require a trach at that point.
--- NOTE | 2020-08-07 23:48 | NUR ---
Feedings: Patient continues to tolerate feedings well. Only 10mL of residual noted. RN will continue to monitor and assess patient.
[2020-08-08] VITALS (105 sets, daily range): BP systolic 96–160; BP diastolic 46–68
[2020-08-08] MEDS: PROPOFOL 100 ML IV SCH (02:00)
--- NOTE | 2020-08-08 03:00 | NUR ---
Feedings: Patient continues to tolerate feedings well. No residuals noted at this time. RN will continue to monitor and assess patient.
[2020-08-08 03:16] LABS: Hematocrit 34.9 % (36.0-46.0); Hemoglobin 11.5 g/dL (12.2-16.2); Mean Corpuscular Hemoglobin 30.1 pg (28.0-32.0); Mean Corpuscular Hgb Conc. 32.8 g/dL (32.0-36.0); Mean Corpuscular Volume 91.7 fL (80.0-100.0); Platelet Count (auto) 283 10^3/uL (140-450); Red Blood Cells 3.81 10^6/uL (4.0-5.20); Red Cell Distribution Width 14.4 % (11.8-14.3); White Blood Cell 19.1 10^3/uL (4.4-10.8)
[2020-08-08 03:18] LABS: Basophils % (manual) 0 (0.0-2.0); Blast Cells 0; Eosinophils % (manual) 0 (0-7); Metamyelocytes % 0; Myelocytes % 0; Promyelocytes % 0; Reactive Lymphocytes 0
[2020-08-08 03:25] LABS: Albumin 2.1 g/dL (3.4-5.0); Calcium 8.8 mg/dL (8.5-10.1); Potassium 4.7 mmol/L (3.5-5.1)
[2020-08-08 03:29] LABS: BUN/Creatinine Ratio 40.2; Bilirubin, Total 0.3 mg/dL (0.2-1.0); Total Protein 6.3 g/dL (6.4-8.2)
[2020-08-08] MEDS: NOREPINEPHRINE 8 MG/250ML KIT 250 ML IV SCH (05:01)
[2020-08-08] MEDS: ACCU-CHEK COMFORT CURVE STRIP VI SCH ×3 (05:11→18:05)
[2020-08-08] MEDS: InsuLIN REG 1unit/0.01ml Soln (100units/ml) SC SCH ×3 (05:11→18:13)
[2020-08-08] MEDS: ALBUTEROL SULF 2.5 MG/0.5ML(0.5%) NEB SOLN NEB SCH ×3 (05:48→22:19)
[2020-08-08] MEDS: IPRATROPIUM BROM 0.5 MG/2.5ML INH SOL NEB SCH ×3 (05:48→22:19)
[2020-08-08] MEDS: PIPERACILLIN-TAZOB 3.375GM 100 ML IV SCH ×3 (06:00→18:05)
[2020-08-08 06:40] LABS: Band Neutrophils % (manual) 2; Lymphocytes % (manual) 1 (10.0-50.0); Monocytes % (manual) 4 (0-12)
--- NOTE | 2020-08-08 09:10 | NUR ---
DR. KELSEY AT BEDSIDE: ORDERS MD UPDATED ON PT'S CURRENT STATUS, LABS AND POC FOR TODAY. MD CALLED AND TALKED WITH PATIENT'S GRANDDAUGHTER AT THIS TIME. WILL CARRY OUT ORDERS GIVEN. CONTINUE CARE.
[2020-08-08] MEDS: SODIUM CHLOR 0.9% PF (SALINE LOCK) 10ML VIAL/SYR IV SCH ×2 (09:53→21:59)
[2020-08-08] MEDS: ASCORBIC ACID 500 MG TAB PO SCH (10:01)
[2020-08-08] MEDS: CHOLECALCIFEROL (VITD3) 2,000 UNIT CAP PO SCH (10:01)
[2020-08-08] MEDS: DexAMETHasone SOD PHOS 10MG/1ML VIAL INJ IV SCH (10:02)
[2020-08-08] MEDS: OMEPRAZOLE 20MG/10ML ORAL SUSP GT SCH (10:02)
[2020-08-08] MEDS: ZINC SULFATE 220mg CAP or TAB PO SCH (10:02)
[2020-08-08] MEDS: ENOXAPARIN SOD 40 MG/0.4 ML SYRINGE SC SCH (10:02)
[2020-08-08] MEDS: PANTOPRAZOLE 40 MG/10 ML VIAL INJ IV SCH (10:02)
--- NOTE | 2020-08-08 10:15 | NUR ---
DR. GRACE AT BEDSIDE: UPDATE MD CALLED. UPDATED ON PT'S CURRENT STATUS, LABS AND POC AT THIS TIME. INFORMED MD THAT PT'S CURRENT FIO2 IS 45% ON VENT. MD VERBALIZES UNDERSTANDING. MD TO COME ROUND LATER ON TODAY. MD TO TALK WITH PT'S FAMILY LATER, WHEN HE COMES IN. CONTINUE CARE.
[2020-08-08] MEDS: INSULIN LANTUS (GLARGINE) 1 /0.01ml (100units/ml) SC SCH (10:18)
--- NOTE | 2020-08-08 11:27 | NUR ---
Nutrition Followup Note Wt 70.7 kg Pt is now negative for COVID. Pt is intubated, sedated off propofol with EN nutrition support Glucerna 1.2 @50 ml/hr, providing 1440 kcals and 67 gm proteins. Est Energy needs: 0617-4482 kcals (20-23 kcal/kgBW), Est Protein needs: 56-70 gms/day (0.8-1.0 gm/kgBW). Will continue to monitor and reassess prn. Labs: GLU 182, ALB 2.1 L BM: Pt with no BM today per RN note Skin: BS 12 mod risk, full details in home care attendant note PES: 1) Increased nutrient needs r/t pt is with no PO intake aeb pt is sedated, intubated, NPO 2) Altered nutrition related lab values r/t current medical condition aeb hyperglycemia, hypocalcemia, hypoalbuminemia Comments: Will continue to monitor NPO status, EN tolerance, skin status, pertinent labs and weight trends. Will f/u in 2-3 days. 1) Gradually advance pt to oral diet when medically feasible and as tolerated. 2) If albumin continues trending down consider Prostat 1 pkt BID. 3) Continue current plan of care
[2020-08-08] MEDS: fentaNYL Drip 2500mCg/250mlNS 250 ML IV SCH (14:00)
--- NOTE | 2020-08-08 19:45 | NUR ---
OPENING NOTE REPORT RECEIVED AND ASSUMED CARE OF PT. PT IS MECHANICALLY VENTILATED AND HAS SEDATION RUNNING TO YAHIR PICC LINE- SEE IV SPREADSHEET. VSS WITH NO DISTRESS OBSERVED. GLUCERNA TUBE FEEDINGS RUNNING AT 50 ML/HR WITH NO RESIDUALS AT THIS TIME. TELLEZ CATHETER IN PLACE AND DRAINING CLEAR/YELLOW URINE TO GRAVITY APPROPRIATELY. SCDS AND FLORA BOOTS APPLIED. ALL EXTREMITIES OFFLOADED WITH PILLOWS. PT TURNED AND ORAL CARE DONE. WILL CONTINUE TO MONITOR AND ASSESS PT.
[2020-08-08] MEDS: MIDAZOLAM DRIP 50 mg/50mL 50 ML IV SCH (20:00)
--- NOTE | 2020-08-08 21:32 | NUR ---
FAMILY CALL SPOKE WITH PTS GRANDDAUGHTER. UPDATED HER ON PT CONDITION. FAMILY STILL WAITING TO SPEAK WITH MD GRACE. MD GRACE IS AWARE TO CALL THEM. MADE GRANDDAUGHTER AWARE THAT MD WILL CALL ONCE HE ROUNDS. VERBALIZED UNDERSTANDING. ALL QUESTIONS AND CONCERNS ADDRESSED.
--- NOTE | 2020-08-08 23:07 | NUR ---
MD GRACE FAMILY CALL MD GRACE AT BEDSIDE TO ROUND ON PT AND UPDATED FAMILY VIA TELEPHONE. SPEAKING WITH GRANDDAUGHTER DEYSI. PASSWORD VERIFIED.
--- NOTE | 2020-08-08 23:43 | NUR ---
SPOKE WITH PTS GRANDDAUGHTER SHE AND THE BOTH AGREE TO PROCEED WITH TRACHEOSTOMY PLACEMENT AFTER SPEAKING WITH MD GRACE. MADE MD AWARE AT BEDSIDE. NEW ORDERS RECEIVED TO CONSULT DR. GALLEGOS FOR TRACH PLACEMENT.
[2020-08-09] VITALS (94 sets, daily range): BP systolic 96–163; BP diastolic 45–82
[2020-08-09] MEDS: ACCU-CHEK COMFORT CURVE STRIP VI SCH ×5 (00:02→23:33)
[2020-08-09] MEDS: PIPERACILLIN-TAZOB 3.375GM 100 ML IV SCH ×5 (00:02→23:33)
[2020-08-09] MEDS: InsuLIN REG 1unit/0.01ml Soln (100units/ml) SC SCH ×5 (00:03→23:34)
[2020-08-09] MEDS: PROPOFOL 100 ML IV SCH (02:00)
--- NOTE | 2020-08-09 02:13 | NUR ---
PT CARE GAVE PT CHG BATH. NEW LINENS AND GOWN APPLIED. HAIR WASHED AND COMBED. DIANNA CARE DONE- SKIN ASSESSED WITH REDNESS NOTED TO DIANNA AND RECTAL AREA. Z GUARD APPLIED. PT TURNED AND ORAL CARE DONE. PT TOLERATED TURNING WELL WITH LITTLE DISTRESS.
[2020-08-09] MEDS: MIDAZOLAM DRIP 50 mg/50mL 50 ML IV SCH ×5 (02:25→23:35)
[2020-08-09 03:46] LABS: Hematocrit 34.5 % (36.0-46.0); Hemoglobin 11.3 g/dL (12.2-16.2); Mean Corpuscular Hemoglobin 30.3 pg (28.0-32.0); Mean Corpuscular Hgb Conc. 32.9 g/dL (32.0-36.0); Mean Corpuscular Volume 92.3 fL (80.0-100.0); Platelet Count (auto) 291 10^3/uL (140-450); Red Blood Cells 3.74 10^6/uL (4.0-5.20); Red Cell Distribution Width 14.6 % (11.8-14.3); White Blood Cell 19.8 10^3/uL (4.4-10.8)
[2020-08-09 04:02] LABS: Calcium 8.7 mg/dL (8.5-10.1); Potassium 4.5 mmol/L (3.5-5.1)
[2020-08-09 04:05] LABS: Basophils % (manual) 0 (0.0-2.0); Eosinophils % (manual) 0 (0-7); Metamyelocytes % 0
[2020-08-09 04:06] LABS: BUN/Creatinine Ratio 42.5; Bilirubin, Total 0.3 mg/dL (0.2-1.0); Blast Cells 0; Myelocytes % 0; Promyelocytes % 0; Reactive Lymphocytes 0; Total Protein 6.1 g/dL (6.4-8.2)
[2020-08-09] MEDS: NOREPINEPHRINE 8 MG/250ML KIT 250 ML IV SCH (05:15)
[2020-08-09 05:28] LABS: Band Neutrophils % (manual) 4; Lymphocytes % (manual) 2 (10.0-50.0); Monocytes % (manual) 3 (0-12)
--- NOTE | 2020-08-09 07:15 | NUR ---
Start of Shift Received patient orally intubated and on ventilator support, sedated with fentanyl and versed to keep patient calm and tolerating ventilator, opens eyes when turned, slight movement of right arm noted, positioned with pillow support, oral gastric tube intact and with tube feeding at 50 ml/hour, no residual, abdomen soft and round with hypoactive bowel sounds, no BM, luong intact and draining pale yellow urine, positioned to side.
--- NOTE | 2020-08-09 08:30 | NUR ---
RN Communication patient's Quique and grand daughter Carlie on the phone and consented to procedures of tracheostomy and PEG placement today, doctors' has explained everything to them and understood all concerns, tube feeding stopped and oral gastric tube flushed with water.
[2020-08-09] MEDS: ASCORBIC ACID 500 MG TAB PO SCH (09:31)
[2020-08-09] MEDS: CHOLECALCIFEROL (VITD3) 2,000 UNIT CAP PO SCH (09:31)
[2020-08-09] MEDS: ZINC SULFATE 220mg CAP or TAB PO SCH (09:31)
[2020-08-09] MEDS: PANTOPRAZOLE 40 MG/10 ML VIAL INJ IV SCH ×2 (09:31→21:27)
[2020-08-09] MEDS: DexAMETHasone SOD PHOS 10MG/1ML VIAL INJ IV SCH (09:31)
[2020-08-09] MEDS: OMEPRAZOLE 20MG/10ML ORAL SUSP GT SCH (09:32)
[2020-08-09] MEDS: SODIUM CHLOR 0.9% PF (SALINE LOCK) 10ML VIAL/SYR IV SCH ×2 (09:33→21:27)
[2020-08-09] MEDS: INSULIN LANTUS (GLARGINE) 1 /0.01ml (100units/ml) SC SCH (09:33)
[2020-08-09] MEDS: ENOXAPARIN SOD 40 MG/0.4 ML SYRINGE SC SCH (10:00)
[2020-08-09] MEDS: fentaNYL Drip 2500mCg/250mlNS 250 ML IV SCH (12:42)
[2020-08-09] MEDS ORDERED: HYDROmorphone HCL 2 MG/ML VL ONE (12:45)
[2020-08-09] MEDS ORDERED: fentaNYL CITRATE 100 MCG/2 ML VL ONE ×2 (12:45→14:11)
[2020-08-09] MEDS ORDERED: MIDAZOLAM HCL 1MG/1ML-2 ML VIAL ONE (12:45)
--- NOTE | 2020-08-09 12:45 | NUR ---
RN Notes Patient prepared to go to OR for tracheostomy and PEG placement, all drips ok and ready.
[2020-08-09] MEDS ORDERED: LIDOCAINE 1% HCL (LOCAL ANESTH.) INJ 20ML MDV ONE (12:50)
[2020-08-09] MEDS ORDERED: DexAMETHasone SOD PHOS 10MG/1ML VIAL INJ IV ONE (13:04)
--- NOTE | 2020-08-09 13:08 | NUR ---
RN Notes To OR via bed with OR staff and respiratory therapist to bag patient, on portable monitor and all iv's running via pump. Chart with patient.
[2020-08-09] MEDS ORDERED: PROPOFOL 10 MG/ML 20 ML IV ONE (13:24)
--- NOTE | 2020-08-09 14:47 | NUR ---
RN Notes Received patient from OR after tracheostomy and PEG placement, trach site clear, no bleeding, connected to ventilator by respiratory therapist; ruq abdomen with peg tube, dressing dry and intact, will not use till tomorrow as ordered. patient reconnected to veneer jointer operator and sedation of fentanyl and Versed, patient relaxed Versed drip restarted at 10mg/hour and Fentanyl at 150/hour, patient tolerating ventilator. Mason intact and draining. SCD to both legs continued.
--- NOTE | 2020-08-09 18:00 | NUR ---
Shift Summary Patient had tracheostomy and PEG done, back to room with Shiley size 6.0 and connected to ventilator, minimal bloody discharge, PEG tube intact with dressing at right upper quadrant, no feeding till tomorrow as ordered, Remains sedated with Versed abd Fentanyl drips, urine output good from Mason cath. Family aware surgery was done .
--- NOTE | 2020-08-09 22:06 | NUR ---
FAMILY SPOKE WITH PTS GRANDDAUGHTER DEYSI. PASSWORD VERIFIED. UPDATED HER EXTENSIVELY ON PT CONDITION REGARDING NEWLY PLACED TRACH AND PEG TUBES. PLAN OF CARE EXPLAINED. VERBALIZED UNDERSTANDING. ALL QUESTIONS AND CONCERNS ADDRESSED AT THIS TIME.
--- NOTE | 2020-08-09 22:06 | NUR ---
GRANDDAUGHTER REQUESTING TO VISIT PT. CURRENT VISITATION POLICY EXPLAINED. DEYSI INSISTS ON VISITING HER GRANDMOTHER DESPITE EDUCATION. WILL MAKE PRIVACY MANAGER AWARE.
[2020-08-09] MEDS: IPRATROPIUM BROM 0.5 MG/2.5ML INH SOL NEB SCH (22:22)
[2020-08-09] MEDS: ALBUTEROL SULF 2.5 MG/0.5ML(0.5%) NEB SOLN NEB SCH (22:22)
[2020-08-10] VITALS (84 sets, daily range): BP systolic 103–174; BP diastolic 45–87
[2020-08-10] MEDS: PROPOFOL 100 ML IV SCH (02:00)
--- NOTE | 2020-08-10 02:55 | NUR ---
PT CARE BED BATH DONE. PARTIAL MAC AND GOWN CHANGE DONE. SKIN ASSESSED WITH NO NEW CHANGES. SMALL SMEAR BM NOTED WHEN PT TURNED. CLEANED APPROPRIATELY. ORAL CARE DONE AND PT TURNED.
--- NOTE | 2020-08-10 03:43 | NUR ---
MADE GATEKEEPER AWARE OF PTS GRANDDAUGHTERS WISHES TO VISIT
[2020-08-10 03:52] LABS: Hemoglobin 11.1 g/dL (12.2-16.2); Mean Corpuscular Hemoglobin 30.2 pg (28.0-32.0); Mean Corpuscular Hgb Conc. 32.7 g/dL (32.0-36.0); Mean Corpuscular Volume 92.4 fL (80.0-100.0); Platelet Count (auto) 281 10^3/uL (140-450); Red Blood Cells 3.68 10^6/uL (4.0-5.20); White Blood Cell 23.3 10^3/uL (4.4-10.8)
[2020-08-10 03:56] LABS: Basophils % (manual) 0 (0.0-2.0); Blast Cells 0; Eosinophils % (manual) 0 (0-7); Promyelocytes % 0; Reactive Lymphocytes 0
[2020-08-10 04:17] LABS: Potassium 3.9 mmol/L (3.5-5.1)
[2020-08-10] MEDS: MIDAZOLAM DRIP 50 mg/50mL 50 ML IV SCH ×3 (04:18→19:03)
[2020-08-10 04:24] LABS: Albumin 1.9 g/dL (3.4-5.0); BUN/Creatinine Ratio 44.1; Bilirubin, Total 0.4 mg/dL (0.2-1.0); Calcium 8.2 mg/dL (8.5-10.1); Total Protein 5.6 g/dL (6.4-8.2)
[2020-08-10] MEDS: NOREPINEPHRINE 8 MG/250ML KIT 250 ML IV SCH (05:15)
[2020-08-10 05:23] LABS: Band Neutrophils % (manual) 1; Lymphocytes % (manual) 6 (10.0-50.0); Metamyelocytes % 1; Monocytes % (manual) 2 (0-12); Myelocytes % 1
[2020-08-10] MEDS: InsuLIN REG 1unit/0.01ml Soln (100units/ml) SC SCH ×3 (05:58→17:18)
[2020-08-10] MEDS: PIPERACILLIN-TAZOB 3.375GM 100 ML IV SCH ×3 (05:58→17:19)
[2020-08-10] MEDS: ACCU-CHEK COMFORT CURVE STRIP VI SCH ×3 (05:58→17:15)
[2020-08-10] MEDS: ALBUTEROL SULF 2.5 MG/0.5ML(0.5%) NEB SOLN NEB SCH ×3 (06:11→18:29)
[2020-08-10] MEDS: IPRATROPIUM BROM 0.5 MG/2.5ML INH SOL NEB SCH ×3 (06:11→18:29)
--- NOTE | 2020-08-10 06:35 | NUR ---
SPOKE WITH DEYSI ABOUT VISITATION. ENCOURAGED HER TO SPEAK WITH THE [employer] LINE INSTALLER TODAY PER EVENTS MANAGER RECOMMENDATION. Addendum: 08/10/20 at 0647 by CARMELLA GONZALES RN ALSO INQUIRED ABOUT HER AND HER FAMILY'S EXPOSURE TO COVID. SHE STATES THAT SHE AND HER FAMILY HAVE BEEN TESTED RECENTLY AND WERE ALL NEGATIVE, EXCEPT THE PTS . HE HAS NOT BEEN TESTED BUT HAS BEEN ASYMPTOMATIC.
--- NOTE | 2020-08-10 07:15 | NUR ---
START OF SHIFT RECEIVED PATIENT ON VENTILATOR SUPPORT VIA TRACHEOSTOMY TUBE WITH SEDATION OF VERSED AND FENTANYL, PATIENT MOVED HEAD WHEN ORAL CARE STARTED AND TRIED TO KEEP MOUTH CLOSE, ENCOURAGED TO COOPERATE WITH CLEANING HER MOUTH AND RELAXED HER MOUTH SOME , TRACHEOSTOMY STOMA CLEANSED AND STERILE DRESSING ON TOP OF STOMA, PEG TUBE INTACT WITH DRY DRESSING, TELLEZ DRAINING WELL. IV.S RUNNING VIA PICC LINE, SITE GOOD AND ALL LINE PATENT.
[2020-08-10] MEDS: OMEPRAZOLE 20MG/10ML ORAL SUSP GT SCH (10:00)
[2020-08-10] MEDS: PANTOPRAZOLE 40 MG/10 ML VIAL INJ IV SCH (10:24)
[2020-08-10] MEDS: ENOXAPARIN SOD 40 MG/0.4 ML SYRINGE SC SCH (10:25)
[2020-08-10] MEDS: ASCORBIC ACID 500 MG TAB PO SCH (10:25)
[2020-08-10] MEDS: ZINC SULFATE 220mg CAP or TAB PO SCH (10:25)
[2020-08-10] MEDS: DexAMETHasone SOD PHOS 10MG/1ML VIAL INJ IV SCH (10:25)
[2020-08-10] MEDS: CHOLECALCIFEROL (VITD3) 2,000 UNIT CAP PO SCH (10:26)
[2020-08-10] MEDS: SODIUM CHLOR 0.9% PF (SALINE LOCK) 10ML VIAL/SYR IV SCH (10:26)
[2020-08-10] MEDS: INSULIN LANTUS (GLARGINE) 1 /0.01ml (100units/ml) SC SCH (10:27)
--- NOTE | 2020-08-10 11:55 | NUR ---
Faxed clinical packet to [facility] Yola [phone] requesting authorization for LTAC placement. Received a call from Charlotte DIRECTOR INTERNAL CONTROL coordinator at [place], states she received the packet faxed by [facility] an have a bed for the patient. Waiting for authorization.
[2020-08-10] MEDS: fentaNYL Drip 2500mCg/250mlNS 250 ML IV SCH (13:08)
--- NOTE | 2020-08-10 14:04 | NUR ---
Received a call from Yola Woody at [facility] gave authorization for the LTAC [id number] and transportation [id number].
--- NOTE | 2020-08-10 14:28 | NUR ---
Nutrition Followup Note Wt 63.9 kg Pt is intubated, sedated off propofol with EN nutrition support Glucerna 1.2 @50 ml/hr, providing 1440 kcals and 67 gm proteins. Pt received 600 ml of Glucerna 1.2 on 08/09 per Rn note. Pt is awaiting transfer to another facility. Est Energy needs: 0020-1122 kcals (20-23 kcal/kgBW), Est Protein needs: 56-70 gms/day (0.8-1.0 gm/kgBW). Will continue to monitor and reassess prn. Labs: Na 132L, BUN 30H, Ca 8.2L, Alb 1.9L BM: Pt with 1 BM today per RN note Skin: BS 12 mod risk, full details in vision care associate note PES: 1) Increased nutrient needs r/t pt is with no PO intake aeb pt is sedated, intubated, NPO 2) Altered nutrition related lab values r/t current medical condition aeb hyperglycemia, hypocalcemia, hypoalbuminemia Comments: Will continue to monitor NPO status, EN tolerance, skin status, pertinent labs and weight trends. Will f/u in 2-3 days. 1) Gradually advance pt to oral diet when medically feasible and as tolerated. 2) If albumin continues trending down consider Prostat 1 pkt BID. 3) Continue current plan of care
--- NOTE | 2020-08-10 14:30 | NUR ---
RN NOTES PATIENT REMAINS SEDATED FOR VENTILATOR SUPPORT, CHG BATH DONE AND LOTION TO SKIN, TOLERATING TUBE FEEDING WITH RESIDUAL OF 30ML, HAD BM SMEAR, CLEANSED AND ZGUARD CREAM APPLIED TO PREVENT REDNESS OF PERIANAL AREA, CONTINUES TO HAVE GOOD OUTPUT VIA TELLEZ, POSITIONED TO SIDE.
--- NOTE | 2020-08-10 15:00 | NUR ---
Received a call from Charlotte GRIGGS coordinator for [place] patient will be going to [facility], Call report to [phone] going to bed ICU 6, Dr. Taylor accepting, Pt can be accepted after 1900, Called Priscila Esquivel and made her aware.
--- NOTE | 2020-08-10 15:23 | NUR ---
D/C Planning Regarding social service consult for LTAC. faxed clinical information to [facility]. LORI Villarreal received authorization from [employer] and will contact [facility] for transportation.
--- NOTE | 2020-08-10 15:45 | NUR ---
Called [facility] talk , spoke with Korin Dispatch requested transport to [facility] with [facility], gave update on the patients transport needs, gave INSPECTOR SOLDERING TIME 1900, states will call if there is any delay
--- NOTE | 2020-08-10 15:51 | NUR ---
Called ICU and gave Jacqui ELMORE, REAL ESTATE ATTORNEY TIME of 1900 for the patient to give to the [facility]OWN.
--- NOTE | 2020-08-10 16:45 | NUR ---
RN NOTES PATIENT BEING TRANSFERRED TO [facility] ICU 6, REPORT CALLED TO CARLYN NURSING HUMAN RESOURCES ASSISTANT AND ALL QUESTIONS ANSWERED, AUTO GLASS WORKER TIME 1900.
--- NOTE | 2020-08-10 16:46 | NUR ---
RN NOTES ALL OF PATIENT'S BELONGINGS GIVEN TO PATIENT'S GRAND DAUGHTER KIRILL, INCLUDING CELL PHONE WITH SHOT POLISHER, SET OF DENTURES, EYE GLASS AND CLOTHES.
--- NOTE | 2020-08-10 18:10 | NUR ---
RN NOTES PATIENT READY FOR TRANSFER TO [facility], ACCOUNTS PAYABLE ACCOUNTANT TIME VIA AMBULANCE AT 1900, ALL PAPERWORK READY, FAMILY AWARE AND AGREES WITH TRANSFER.
--- NOTE | 2020-08-10 19:05 | NUR ---
[facility] AT BEDSIDE TO LIFT SUPERVISOR PT FOR TRANSPORT. BEDSIDE REPORT AND TRANSFER PAPERWORK GIVEN.
--- NOTE | 2020-08-10 19:35 | NUR ---
[facility] OFF UNIT WITH PT.
--- NOTE | 2020-08-10 20:03 | NUR ---
CALLED GRANDDAUGHTER TO MAKE HER AWARE OF TRANSFER.
== END 2020-08-10 20:20 | DRG 5 ==
LOC: ER 09:26 → OVERFLOW 09:27 → DOU IN ICU 22:40 → ICU WEST 07-26 02:28
PROVIDERS: ADMIT Hospitalist; ATTEND Internal Medicine Nephrology
PROC: 5A1955Z Respiratory Ventilation, Greater than 96 Consecutive Hours (ICD-10-PCS; principal; 2020-07-26)
PROC: 0BH17EZ Insertion of Endotracheal Airway into Trachea, Via Natural or Artificial Opening (ICD-10-PCS; 2020-07-26)
PROC: 02HV33Z Insertion of Infusion Device into Superior Vena Cava, Percutaneous Approach (ICD-10-PCS; 2020-07-26)
PROC: XW033E5 Introduction of Remdesivir Anti-infective into Peripheral Vein, Percutaneous Approach, New Technology Group 5 (ICD-10-PCS; 2020-07-26)
PROC: XW13325 Transfusion of Convalescent Plasma (Nonautologous) into Peripheral Vein, Percutaneous Approach, New Technology Group 5 (ICD-10-PCS; 2020-07-27)
PROC: 0DH63UZ Insertion of Feeding Device into Stomach, Percutaneous Approach (ICD-10-PCS; 2020-08-09)
PROC: 0B110F4 Bypass Trachea to Cutaneous with Tracheostomy Device, Open Approach (ICD-10-PCS; 2020-08-09)
PROC: 0DB78ZX Excision of Stomach, Pylorus, Via Natural or Artificial Opening Endoscopic, Diagnostic (ICD-10-PCS; 2020-08-09)
DX: U07.1 COVID-19 (principal); J12.89 Other viral pneumonia; J80 Acute respiratory distress syndrome; E87.6 Hypokalemia; N17.9 Acute kidney failure, unspecified; I10 Essential (primary) hypertension; D64.9 Anemia, unspecified; J81.1 Chronic pulmonary edema; E11.65 Type 2 diabetes mellitus with hyperglycemia; E87.70 Fluid overload, unspecified; J84.10 Pulmonary fibrosis, unspecified; E87.1 Hypo-osmolality and hyponatremia; E87.3 Alkalosis; J15.9 Unspecified bacterial pneumonia; J47.0 Bronchiectasis with acute lower respiratory infection; J93.83 Other pneumothorax; K29.70 Gastritis, unspecified, without bleeding; T50.1X5A Adverse effect of loop [high-ceiling] diuretics, initial encounter; Z82.49 Family history of ischemic heart disease and other diseases of the circulatory system; Z82.5 Family history of asthma and other chronic lower respiratory diseases; Z83.3 Family history of diabetes mellitus; Z86.73 Personal history of transient ischemic attack (TIA), and cerebral infarction without residual deficits; Z87.891 Personal history of nicotine dependence; D72.829 Elevated white blood cell count, unspecified; B94.8 Sequelae of other specified infectious and parasitic diseases
CPT/HCPCS: 36415; 36569; 36600; 43239; 71045; 71275; 80048; 80053; 80076; 80202; 82270; 82565; 82728; 82805; 82962; 83036; 83605; 83735; 83880; 84484; 85007; 85025; 85027; 85379; 85610; 85730; 86141; 86850; 86900; 86901; 87040; 87070; 87081; 87205; 87426; 87804; 93306; 93970; 94002; 94003; 94640; 94660; 96365; 96366; 96367; 96368; 96375; C9113; G0378; J0330; J0696; J1100; J1815; J2001; J2250; J2543; J2704; J3480; J3490; J7060

== ENCOUNTER → 2021-10-29 | Outpatient (CLI) | payer MEDICAID ==
[2021-10-29 10:28] LABS: Basophils # (auto) 0 10 ^3/uL (0-0.2); Basophils % (auto) 0.8 % (0.0-2.0); Eosinophils # (auto) 0.2 10 ^3/uL (0-0.8); Eosinophils % (auto) 3.1 % (0.0-7.0); Hematocrit 34.9 % (36.0-46.0); Hemoglobin 11.6 g/dL (12.2-16.2); Lymphocytes # (auto) 1.4 10 ^3/uL (0.4-5.4); Lymphocytes % (auto) 25.4 % (10.0-50.0); Mean Corpuscular Hemoglobin 30.8 pg (28.0-32.0); Mean Corpuscular Hgb Conc. 33.1 g/dL (32.0-36.0); Monocytes # (auto) 0.3 10 ^3/uL (0-1.3); Monocytes % (auto) 5.8 % (0.0-12.0); Neutrophils # (auto) 3.6 10 ^3/uL (1.6-8.6); Neutrophils % (auto) 64.9 % (37.0-80.0); Nucleated Red Blood Cells % 0.1 %; Red Blood Cells 3.76 10^6/uL (4.0-5.20); Red Cell Distribution Width 14.6 % (11.8-14.3); White Blood Cell 5.6 10^3/uL (4.4-10.8)
[2021-10-29 11:30] LABS: Albumin 2.9 g/dL (3.4-5.0); Potassium 4.2 mmol/L (3.5-5.1)
[2021-10-29 11:37] LABS: BUN/Creatinine Ratio 14.9; Bilirubin, Total 0.2 mg/dL (0.2-1.0); Calcium 8.8 mg/dL (8.5-10.1); Total Protein 6.6 g/dL (6.4-8.2)
== END | disposition home or self-care (01) ==
LOC: LAB 09:34
PROVIDERS: ATTEND Internal Medicine Nephrology
DX: E11.9 Type 2 diabetes mellitus without complications (principal)
CPT/HCPCS: 36415; 80053; 80061; 83036; 85025

== ENCOUNTER → 2022-03-04 | Outpatient (CLI) | payer OTHER | END | disposition home or self-care (01) | LOC: LAB 12:10 | PROVIDERS: ATTEND Physician Assistant | DX: Z20.822 Contact with and (suspected) exposure to COVID-19 (principal) | CPT/HCPCS: 36415 ==

== ENCOUNTER → 2022-03-05 | Outpatient (CLI) | payer MEDICARE, MEDICAID ==
[~2022-03-05] MED LIST: ALBUTEROL SULF 2.5 MG/0.5ML(0.5%) NEB SOLN ONE
== END | disposition home or self-care (01) ==
LOC: RT 08:55
PROVIDERS: ATTEND Internal Medicine Pulmonary Disease
DX: R06.02 Shortness of breath (principal)
CPT/HCPCS: 94060; 94727; 94729

== ENCOUNTER 2022-05-25 14:50 | Inpatient (IN) | payer MEDICARE, MEDICAID ==
[~2022-05-25] VITALS: Ht 165.1 cm; Wt 56.7 kg
[2022-05-25] MEDS ORDERED: methylPREDNISolone SOD SUCC 125 MG/2 ML VL IV ONE (15:15)
[2022-05-25 16:11] LABS: Basophils # (auto) 0 10 ^3/uL (0-0.2); Basophils % (auto) 0.4 % (0.0-2.0); Eosinophils # (auto) 0.1 10 ^3/uL (0-0.8); Eosinophils % (auto) 0.7 % (0.0-7.0); Hematocrit 33.4 % (36.0-46.0); Lymphocytes # (auto) 0.7 10 ^3/uL (0.4-5.4); Lymphocytes % (auto) 9.2 % (10.0-50.0); Mean Corpuscular Hemoglobin 31.2 pg (28.0-32.0); Mean Corpuscular Hgb Conc. 32.9 g/dL (32.0-36.0); Mean Corpuscular Volume 94.8 fL (80.0-100.0); Monocytes # (auto) 0.5 10 ^3/uL (0-1.3); Monocytes % (auto) 6.2 % (0.0-12.0); Neutrophils # (auto) 6.5 10 ^3/uL (1.6-8.6); Neutrophils % (auto) 83.5 % (37.0-80.0); Red Blood Cells 3.53 10^6/uL (4.0-5.20); Red Cell Distribution Width 15.9 % (11.8-14.3); White Blood Cell 7.8 10^3/uL (4.4-10.8)
[2022-05-25 16:27] LABS: Albumin 3.2 g/dL (3.4-5.0); Calcium 8.8 mg/dL (8.5-10.1); Magnesium 1.7 mg/dL (1.6-2.6)
[2022-05-25 16:31] LABS: BUN/Creatinine Ratio 6.7; Bilirubin, Total 0.4 mg/dL (0.2-1.0); Total Protein 7.4 g/dL (6.4-8.2)
[2022-05-25 16:37] LABS: Potassium 2.8 mmol/L (3.5-5.1)
[2022-05-25 17:12] LABS: Urine Bacteria FEW /hpf (None Seen); Urine Blood Negative /uL (Negative); Urine Hyaline Cast FEW /lpf (0 - 2); Urine Mucus FEW (None Seen); Urine Specific Gravity 1.015 (1.001-1.035); Urine WBC 18 /hpf (0 - 5)
[2022-05-25] MEDS ORDERED: POTASSIUM CHL 20 Meq TABLET PO ONE (17:15)
[2022-05-25] MEDS ORDERED: POTASSIUM CHL 20MEQ/100ML 100 ML IV ONE (17:15)
[2022-05-25] MEDS: AZITHROMYCIN 500MG/ 250ML 250 ML IV ONE ×2 (17:18→20:40)
[2022-05-25] MEDS ORDERED: cefTRIAXone 1GM/50ML D5W 50 ML IV ONE (17:30)
[2022-05-25] MEDS ORDERED: NITROGLYCERIN 0.4 MG SL TAB SL PRN (19:15)
[2022-05-25] MEDS ORDERED: MORPHINE SULFATE INJ 2 MG/ml SYRG IV PRN (19:15)
[2022-05-25] MEDS ORDERED: ALBUTEROL SULF HFA 90MCG INH 200DOSE IN PRN (19:15)
[2022-05-25] MEDS ORDERED: IOHEXOL 350 MG/ML 100ML IJ ONE (19:19)
[2022-05-25 19:25] VITALS: BP 136/39
[2022-05-25] MEDS ORDERED: SODIUM CHLORIDE 0.9% 500 ML IV ONE (19:30)
[2022-05-25] MEDS ORDERED: MAGNESIUM SULFATE 1GM/100ML 100 ML IV ONE (19:30)
[2022-05-25] MEDS ORDERED: GAB100C PO (19:37)
[2022-05-25] MEDS ORDERED: DEXTROSE (50%) 50ML SYRG IV PRN (19:45)
[2022-05-25] MEDS ORDERED: ENOXAPARIN SOD 40 MG/0.4 ML SYRINGE SC SCH (22:00)
[2022-05-25] MEDS ORDERED: BUDESONIDE (INHALATION) 180 MCG IH IN SCH (22:00)
[2022-05-25] MEDS: ACCU-CHEK COMFORT CURVE STRIP VI SCH (23:55)
[2022-05-26] MEDS: InsuLIN REG 1unit/0.01ml Soln (100units/ml) SC SCH ×5 (00:01→22:22)
[2022-05-26] MEDS ORDERED: HYDROcodone-ACET 5/325MG TAB PO ONE (00:30)
[2022-05-26 01:19] LABS: BUN/Creatinine Ratio 7.8; Calcium 7.9 mg/dL (8.5-10.1); Potassium 3.6 mmol/L (3.5-5.1)
[2022-05-26 06:31] LABS: Basophils # (auto) 0 10 ^3/uL (0-0.2); Eosinophils # (auto) 0 10 ^3/uL (0-0.8); Hemoglobin 9.4 g/dL (12.2-16.2); Lymphocytes # (auto) 0.7 10 ^3/uL (0.4-5.4); Lymphocytes % (auto) 10.9 % (10.0-50.0); Mean Corpuscular Hemoglobin 31.7 pg (28.0-32.0); Mean Corpuscular Hgb Conc. 33.7 g/dL (32.0-36.0); Mean Corpuscular Volume 94.2 fL (80.0-100.0); Monocytes # (auto) 0.2 10 ^3/uL (0-1.3); Monocytes % (auto) 2.7 % (0.0-12.0); Neutrophils # (auto) 5.2 10 ^3/uL (1.6-8.6); Neutrophils % (auto) 86.4 % (37.0-80.0); Red Blood Cells 2.98 10^6/uL (4.0-5.20); Red Cell Distribution Width 15.8 % (11.8-14.3); White Blood Cell 6.1 10^3/uL (4.4-10.8)
[2022-05-26 06:44] LABS: Potassium 3.6 mmol/L (3.5-5.1)
[2022-05-26 06:50] LABS: Albumin 2.5 g/dL (3.4-5.0); BUN/Creatinine Ratio 10.8; Bilirubin, Total 0.2 mg/dL (0.2-1.0); Calcium 8.2 mg/dL (8.5-10.1)
[2022-05-26] MEDS: ACCU-CHEK COMFORT CURVE STRIP VI SCH ×4 (07:05→22:22)
[2022-05-26] MEDS: cefTRIAXone 1GM/50ML D5W 50 ML IV SCH (09:23)
[2022-05-26] MEDS: AZITHROMYCIN 500MG/ 250ML 250 ML IV SCH (09:24)
[2022-05-26] MEDS: ENOXAPARIN SOD 40 MG/0.4 ML SYRINGE SC SCH (09:24)
[2022-05-26 09:40] VITALS: BP 125/48
[2022-05-26] MEDS ORDERED: DexAMETHasone SOD PHOS 10MG/1ML VIAL INJ IV SCH (10:00)
[2022-05-26] MEDS ORDERED: ZOLP5TAB5 PO (10:06)
[2022-05-26] MEDS ORDERED: TRAM50TA2 PO (10:06)
[2022-05-26] MEDS ORDERED: LANS30CA57 PO (10:06)
[2022-05-26] MEDS ORDERED: IMAT400T8 PO (10:06)
[2022-05-26] MEDS ORDERED: FUROSEMIDE 40 MG/4 ML VIAL IV ONE (11:30)
[2022-05-26 13:00] VITALS: BP 136/55
[2022-05-26] MEDS: IPRATROPIUM BROM 0.5 MG/2.5ML INH SOL NEB SCH ×2 (13:19→19:28)
[2022-05-26] MEDS: ALBUTEROL SULF 2.5 MG/0.5ML(0.5%) NEB SOLN NEB SCH ×2 (13:19→19:28)
[2022-05-26] MEDS: methylPREDNISolone SOD SUCC 40 MG/ML VL IV SCH ×2 (13:37→22:13)
[2022-05-26 17:13] VITALS: BP 120/51
[2022-05-26] MEDS ORDERED: TEMAZEPAM 15 MG CAP PO ONE (21:45)
[2022-05-26 22:00] VITALS: BP 133/53
[2022-05-26] MEDS: ACETAMINOPHEN 325 MG TAB PO PRN (22:14)
[2022-05-27] MEDS: ALBUTEROL SULF 2.5 MG/0.5ML(0.5%) NEB SOLN NEB SCH ×4 (00:20→18:40)
[2022-05-27] MEDS: IPRATROPIUM BROM 0.5 MG/2.5ML INH SOL NEB SCH ×4 (00:20→18:40)
[2022-05-27 05:00] VITALS: BP 118/44
[2022-05-27] MEDS: methylPREDNISolone SOD SUCC 40 MG/ML VL IV SCH ×3 (06:33→22:20)
[2022-05-27] MEDS: InsuLIN REG 1unit/0.01ml Soln (100units/ml) SC SCH ×4 (06:41→22:26)
[2022-05-27] MEDS: ACCU-CHEK COMFORT CURVE STRIP VI SCH ×4 (06:44→22:21)
[2022-05-27 08:45] VITALS: BP 123/49
[2022-05-27] MEDS: cefTRIAXone 1GM/50ML D5W 50 ML IV SCH (09:27)
[2022-05-27] MEDS: FUROSEMIDE 40 MG/4 ML VIAL IV SCH (09:27)
[2022-05-27] MEDS: ENOXAPARIN SOD 40 MG/0.4 ML SYRINGE SC SCH (09:28)
[2022-05-27] MEDS: AZITHROMYCIN 500MG/ 250ML 250 ML IV SCH (10:00)
[2022-05-27 13:30] VITALS: BP 117/43
[2022-05-27 16:54] VITALS: BP 110/43
[2022-05-27 20:10] VITALS: BP 117/48
[2022-05-27 22:00] VITALS: BP 117/48
[2022-05-27] MEDS: ACETAMINOPHEN 325 MG TAB PO PRN (22:31)
[2022-05-28 05:00] VITALS: BP 118/54
[2022-05-28 06:11] LABS: Basophils # (auto) 0 10 ^3/uL (0-0.2); Eosinophils # (auto) 0 10 ^3/uL (0-0.8); Hematocrit 28.8 % (36.0-46.0); Hemoglobin 9.8 g/dL (12.2-16.2); Lymphocytes # (auto) 0.4 10 ^3/uL (0.4-5.4); Lymphocytes % (auto) 5.2 % (10.0-50.0); Mean Corpuscular Hemoglobin 31.7 pg (28.0-32.0); Mean Corpuscular Volume 93.2 fL (80.0-100.0); Monocytes # (auto) 0.2 10 ^3/uL (0-1.3); Monocytes % (auto) 3.3 % (0.0-12.0); Neutrophils # (auto) 6.9 10 ^3/uL (1.6-8.6); Neutrophils % (auto) 91.5 % (37.0-80.0); Red Blood Cells 3.09 10^6/uL (4.0-5.20); Red Cell Distribution Width 15.6 % (11.8-14.3); White Blood Cell 7.5 10^3/uL (4.4-10.8)
[2022-05-28] MEDS: methylPREDNISolone SOD SUCC 40 MG/ML VL IV SCH (06:18)
[2022-05-28 06:25] LABS: Calcium 8.5 mg/dL (8.5-10.1)
[2022-05-28] MEDS: InsuLIN REG 1unit/0.01ml Soln (100units/ml) SC SCH ×2 (06:30→11:30)
[2022-05-28 06:33] LABS: Albumin 2.8 g/dL (3.4-5.0); Bilirubin, Total 0.2 mg/dL (0.2-1.0); Total Protein 6.4 g/dL (6.4-8.2)
[2022-05-28 06:36] LABS: Potassium 2.6 mmol/L (3.5-5.1)
[2022-05-28] MEDS: IPRATROPIUM BROM 0.5 MG/2.5ML INH SOL NEB SCH ×3 (06:44→12:58)
[2022-05-28] MEDS: ALBUTEROL SULF 2.5 MG/0.5ML(0.5%) NEB SOLN NEB SCH ×3 (06:44→12:58)
[2022-05-28] MEDS ORDERED: POTASSIUM CHL 20 Meq TABLET PO ONE ×4 (06:45→11:15)
[2022-05-28] MEDS: ACCU-CHEK COMFORT CURVE STRIP VI SCH ×2 (06:51→11:30)
[2022-05-28] MEDS ORDERED: MAGNESIUM OXIDE 400 MG TAB PO ONE (07:45)
[2022-05-28 08:30] VITALS: BP 110/50
[2022-05-28] MEDS ORDERED: predniSONE 20 MG TAB PO SCH (10:00)
[2022-05-28] MEDS: cefTRIAXone 1GM/50ML D5W 50 ML IV SCH (10:04)
[2022-05-28] MEDS: ENOXAPARIN SOD 40 MG/0.4 ML SYRINGE SC SCH (10:05)
[2022-05-28] MEDS: FUROSEMIDE 40 MG/4 ML VIAL IV SCH (10:05)
[2022-05-28] MEDS: AZITHROMYCIN 500MG/ 250ML 250 ML IV SCH (10:05)
[2022-05-28] MEDS ORDERED: LEVO500T31 PO (11:13)
[2022-05-28] MEDS ORDERED: PRED20TA2 PO (11:13)
[2022-05-28 14:08] VITALS: BP 110/71
== END 2022-05-28 15:54 | disposition home or self-care (01) | DRG 196 ==
LOC: ER 14:50 → TELE 19:14 → TELE-CENTR 05-26 08:57 → CENTRAL 05-26 11:55
PROVIDERS: ADMIT Registered Nurse; ATTEND Internal Medicine
DX: J84.9 Interstitial pulmonary disease, unspecified (principal); E43 Unspecified severe protein-calorie malnutrition; J96.00 Acute respiratory failure, unspecified whether with hypoxia or hypercapnia; J10.00 Influenza due to other identified influenza virus with unspecified type of pneumonia; N30.00 Acute cystitis without hematuria; E87.6 Hypokalemia; H26.9 Unspecified cataract; J84.10 Pulmonary fibrosis, unspecified; Z20.822 Contact with and (suspected) exposure to COVID-19; E11.65 Type 2 diabetes mellitus with hyperglycemia; I10 Essential (primary) hypertension; Z86.73 Personal history of transient ischemic attack (TIA), and cerebral infarction without residual deficits; Z86.16 Personal history of COVID-19; Z80.9 Family history of malignant neoplasm, unspecified; Z82.49 Family history of ischemic heart disease and other diseases of the circulatory system; Z82.5 Family history of asthma and other chronic lower respiratory diseases; Z83.3 Family history of diabetes mellitus; Z88.8 Allergy status to other drugs, medicaments and biological substances; Z85.6 Personal history of leukemia; Z87.891 Personal history of nicotine dependence; Z90.710 Acquired absence of both cervix and uterus; Z90.49 Acquired absence of other specified parts of digestive tract; Z68.20 Body mass index [BMI] 20.0-20.9, adult
CPT/HCPCS: 36415; 71046; 71275; 80048; 80053; 81001; 82306; 82728; 82962; 83036; 83605; 83735; 83880; 84132; 84443; 84484; 85025; 85379; 86141; 87040; 87070; 87205; 87804; 93005; 93306; 93970; 94003; 94640; 96361; 96365; 96375; 99291; G0378; J0696; J1100; J1815; J3480

== ENCOUNTER 2022-06-08 20:24 | Inpatient (IN) | payer MEDICARE, MEDICAID ==
[~2022-06-08] VITALS: Ht 165.1 cm; Wt 59.4 kg
[~2022-06-08 20:24] MED LIST changes: -ALBUTEROL SULF 2.5 MG/0.5ML(0.5%) NEB SOLN ONE; +GAB100C PO; +IMAT400T8 PO; +LANS30CA57 PO; +LEVO500T31 PO; +PRED20TA2 PO; +TRAM50TA2 PO; +ZOLP5TAB5 PO
[2022-06-08 22:49] LABS: Basophils # (auto) 0 10 ^3/uL (0-0.2); Basophils % (auto) 0.1 % (0.0-2.0); Eosinophils # (auto) 0.1 10 ^3/uL (0-0.8); Eosinophils % (auto) 0.5 % (0.0-7.0); Hematocrit 26.5 % (36.0-46.0); Hemoglobin 8.9 g/dL (12.2-16.2); Lymphocytes # (auto) 1.8 10 ^3/uL (0.4-5.4); Lymphocytes % (auto) 11.1 % (10.0-50.0); Mean Corpuscular Hemoglobin 31.1 pg (28.0-32.0); Mean Corpuscular Hgb Conc. 33.4 g/dL (32.0-36.0); Mean Corpuscular Volume 93.2 fL (80.0-100.0); Monocytes # (auto) 1.1 10 ^3/uL (0-1.3); Monocytes % (auto) 6.8 % (0.0-12.0); Neutrophils # (auto) 12.9 10 ^3/uL (1.6-8.6); Neutrophils % (auto) 81.5 % (37.0-80.0); Red Blood Cells 2.84 10^6/uL (4.0-5.20); Red Cell Distribution Width 16.1 % (11.8-14.3); White Blood Cell 15.9 10^3/uL (4.4-10.8)
[2022-06-08 23:13] LABS: Albumin 2.8 g/dL (3.4-5.0); BUN/Creatinine Ratio 14.1; Calcium 8.2 mg/dL (8.5-10.1)
[2022-06-08 23:16] LABS: Bilirubin, Total 0.2 mg/dL (0.2-1.0); Total Protein 5.5 g/dL (6.4-8.2)
[2022-06-08 23:17] LABS: INR 0.97 (0.9-1.15); Partial Thromboplastin Time 24.4 sec (24.6-33.4)
[2022-06-08 23:31] LABS: Potassium 2.7 mmol/L (3.5-5.1)
[2022-06-08] MEDS ORDERED: POTASSIUM EFFERVESENT TAB 25 MEQ PO ONE (23:45)
[2022-06-09] MEDS ORDERED: cefTRIAXone 1GM/50ML D5W 50 ML IV ONE (01:15)
[2022-06-09] MEDS ORDERED: ONDANSETRON HCL 4 MG/2 ML VIAL IV PRN (03:15)
[2022-06-09] MEDS ORDERED: MORPHINE SULFATE INJ 2 MG/ml SYRG IV PRN (03:15)
[2022-06-09] MEDS ORDERED: LORazepam 0.5 MG TAB PO PRN (03:15)
[2022-06-09] MEDS ORDERED: DOCUSATE SOD 100 MG CAP PO PRN (03:15)
[2022-06-09] MEDS: SODIUM CHLORIDE 0.9% 1,000 ML IV SCH ×2 (03:41→21:35)
[2022-06-09] MEDS: ACETAMINOPHEN 325 MG TAB PO PRN ×3 (04:53→21:41)
[2022-06-09 05:00] LABS: Basophils # (auto) 0 10 ^3/uL (0-0.2); Basophils % (auto) 0.2 % (0.0-2.0); Eosinophils # (auto) 0.1 10 ^3/uL (0-0.8); Eosinophils % (auto) 0.5 % (0.0-7.0); Hemoglobin 8.8 g/dL (12.2-16.2); Lymphocytes # (auto) 1.5 10 ^3/uL (0.4-5.4); Lymphocytes % (auto) 11.4 % (10.0-50.0); Mean Corpuscular Hemoglobin 31.3 pg (28.0-32.0); Mean Corpuscular Hgb Conc. 33.9 g/dL (32.0-36.0); Mean Corpuscular Volume 92.3 fL (80.0-100.0); Monocytes # (auto) 0.8 10 ^3/uL (0-1.3); Monocytes % (auto) 6.2 % (0.0-12.0); Neutrophils # (auto) 10.9 10 ^3/uL (1.6-8.6); Neutrophils % (auto) 81.7 % (37.0-80.0); Red Blood Cells 2.82 10^6/uL (4.0-5.20); Red Cell Distribution Width 15.9 % (11.8-14.3); White Blood Cell 13.3 10^3/uL (4.4-10.8)
[2022-06-09 05:14] LABS: Urine Bacteria FEW /hpf (None Seen); Urine Blood Negative /uL (Negative); Urine Hyaline Cast FEW /lpf (0 - 2); Urine Mucus FEW (None Seen); Urine Specific Gravity 1.017 (1.001-1.035); Urine WBC 3 /hpf (0 - 5)
[2022-06-09 05:21] LABS: BUN/Creatinine Ratio 13.6; Calcium 7.7 mg/dL (8.5-10.1); Potassium 3.5 mmol/L (3.5-5.1)
[2022-06-09] MEDS: cefTRIAXone 1GM/50ML D5W 50 ML IV SCH (21:34)
[2022-06-09 22:00] VITALS: BP 146/52
[2022-06-10] VITALS (8 sets, daily range): BP systolic 129–160; BP diastolic 54–66
[2022-06-10 06:26] LABS: Basophils # (auto) 0.1 10 ^3/uL (0-0.2); Basophils % (auto) 0.5 % (0.0-2.0); Eosinophils # (auto) 0.1 10 ^3/uL (0-0.8); Hematocrit 28.9 % (36.0-46.0); Hemoglobin 9.7 g/dL (12.2-16.2); Lymphocytes # (auto) 1.3 10 ^3/uL (0.4-5.4); Lymphocytes % (auto) 11.4 % (10.0-50.0); Mean Corpuscular Hemoglobin 31.3 pg (28.0-32.0); Mean Corpuscular Hgb Conc. 33.5 g/dL (32.0-36.0); Mean Corpuscular Volume 93.3 fL (80.0-100.0); Monocytes # (auto) 0.7 10 ^3/uL (0-1.3); Monocytes % (auto) 6.5 % (0.0-12.0); Neutrophils # (auto) 8.9 10 ^3/uL (1.6-8.6); Neutrophils % (auto) 80.6 % (37.0-80.0); Red Cell Distribution Width 16.4 % (11.8-14.3); White Blood Cell 11.1 10^3/uL (4.4-10.8)
[2022-06-10 06:33] LABS: BUN/Creatinine Ratio 6.3; Calcium 7.8 mg/dL (8.5-10.1); Potassium 3.6 mmol/L (3.5-5.1)
[2022-06-10] MEDS: ACETAMINOPHEN 325 MG TAB PO PRN (11:27)
[2022-06-10] MEDS: SODIUM CHLORIDE 0.9% 1,000 ML IV SCH (13:25)
[2022-06-10] MEDS: HYDROcodone-ACET 5/325MG TAB PO PRN ×2 (14:07→21:34)
[2022-06-10] MEDS: ATORVASTATIN 20 MG TAB PO SCH (21:34)
[2022-06-10] MEDS: cefTRIAXone 1GM/50ML D5W 50 ML IV SCH (21:34)
[2022-06-11 05:00] VITALS: BP 133/59
[2022-06-11 05:33] LABS: Basophils # (auto) 0 10 ^3/uL (0-0.2); Basophils % (auto) 0.3 % (0.0-2.0); Eosinophils # (auto) 0.1 10 ^3/uL (0-0.8); Eosinophils % (auto) 1.5 % (0.0-7.0); Hematocrit 27.4 % (36.0-46.0); Hemoglobin 9.6 g/dL (12.2-16.2); Lymphocytes # (auto) 1.3 10 ^3/uL (0.4-5.4); Lymphocytes % (auto) 13.6 % (10.0-50.0); Mean Corpuscular Hgb Conc. 34.9 g/dL (32.0-36.0); Mean Corpuscular Volume 94.6 fL (80.0-100.0); Monocytes # (auto) 0.6 10 ^3/uL (0-1.3); Monocytes % (auto) 6.6 % (0.0-12.0); Neutrophils # (auto) 7.4 10 ^3/uL (1.6-8.6); Red Cell Distribution Width 16.3 % (11.8-14.3); White Blood Cell 9.4 10^3/uL (4.4-10.8)
[2022-06-11 05:36] LABS: BUN/Creatinine Ratio 12.5; Calcium 7.5 mg/dL (8.5-10.1); Potassium 3.9 mmol/L (3.5-5.1)
[2022-06-11] MEDS: SODIUM CHLORIDE 0.9% 1,000 ML IV SCH ×2 (05:43→21:55)
[2022-06-11] MEDS: HYDROcodone-ACET 5/325MG TAB PO PRN ×2 (08:45→21:00)
[2022-06-11 09:00] VITALS: BP 127/58
[2022-06-11] MEDS: CLOPIDOGREL BISULFATE 75 MG TAB PO SCH (09:43)
[2022-06-11] MEDS: ENOXAPARIN SOD 40 MG/0.4 ML SYRINGE SC SCH (09:43)
[2022-06-11 13:00] VITALS: BP 140/54
[2022-06-11 17:08] VITALS: BP 125/41
[2022-06-11] MEDS: ATORVASTATIN 20 MG TAB PO SCH (21:01)
[2022-06-11] MEDS: cefTRIAXone 1GM/50ML D5W 50 ML IV SCH (21:01)
[2022-06-11 22:00] VITALS: BP 143/54
[2022-06-12 05:39] VITALS: BP 110/44
[2022-06-12 06:52] LABS: Basophils # (auto) 0.1 10 ^3/uL (0-0.2); Basophils % (auto) 0.8 % (0.0-2.0); Eosinophils # (auto) 0.2 10 ^3/uL (0-0.8); Eosinophils % (auto) 2.5 % (0.0-7.0); Hematocrit 27.6 % (36.0-46.0); Hemoglobin 9.3 g/dL (12.2-16.2); Lymphocytes # (auto) 1.1 10 ^3/uL (0.4-5.4); Lymphocytes % (auto) 14.2 % (10.0-50.0); Mean Corpuscular Hemoglobin 31.8 pg (28.0-32.0); Mean Corpuscular Hgb Conc. 33.7 g/dL (32.0-36.0); Mean Corpuscular Volume 94.2 fL (80.0-100.0); Monocytes # (auto) 0.5 10 ^3/uL (0-1.3); Monocytes % (auto) 6.6 % (0.0-12.0); Neutrophils # (auto) 5.9 10 ^3/uL (1.6-8.6); Neutrophils % (auto) 75.9 % (37.0-80.0); Red Blood Cells 2.93 10^6/uL (4.0-5.20); Red Cell Distribution Width 16.6 % (11.8-14.3); White Blood Cell 7.7 10^3/uL (4.4-10.8)
[2022-06-12 07:08] LABS: Potassium 3.9 mmol/L (3.5-5.1)
[2022-06-12 07:12] LABS: Calcium 8.1 mg/dL (8.5-10.1)
[2022-06-12 08:00] VITALS: BP 117/70
[2022-06-12 08:13] LABS: INR 0.92 (0.9-1.15); Partial Thromboplastin Time 26.4 sec (24.6-33.4)
[2022-06-12 09:00] VITALS: BP 128/52
[2022-06-12] MEDS: ENOXAPARIN SOD 40 MG/0.4 ML SYRINGE SC SCH (09:10)
[2022-06-12] MEDS: CLOPIDOGREL BISULFATE 75 MG TAB PO SCH (09:10)
[2022-06-12] MEDS ORDERED: MIDAZOLAM HCL 2MG/2ML 2ml VIAL (1mg/ml) IV ONE (12:00)
[2022-06-12] MEDS ORDERED: LIDOCAINE VISCOUS 2% 15ML UD PO ONE (12:00)
[2022-06-12 13:00] VITALS: BP 137/44
[2022-06-12] MEDS: SODIUM CHLORIDE 0.9% 1,000 ML IV SCH (14:35)
[2022-06-12 17:00] VITALS: BP 138/41
[2022-06-12] MEDS: HYDROcodone-ACET 5/325MG TAB PO PRN (19:15)
[2022-06-12 22:00] VITALS: BP 135/52
[2022-06-12] MEDS: cefTRIAXone 1GM/50ML D5W 50 ML IV SCH (22:55)
[2022-06-12] MEDS: ATORVASTATIN 20 MG TAB PO SCH (22:55)
[2022-06-13 05:00] VITALS: BP 149/51
[2022-06-13 05:06] LABS: Basophils # (auto) 0 10 ^3/uL (0-0.2); Basophils % (auto) 0.2 % (0.0-2.0); Eosinophils # (auto) 0.3 10 ^3/uL (0-0.8); Eosinophils % (auto) 2.9 % (0.0-7.0); Hematocrit 29.2 % (36.0-46.0); Hemoglobin 9.7 g/dL (12.2-16.2); Lymphocytes # (auto) 1.3 10 ^3/uL (0.4-5.4); Lymphocytes % (auto) 13.8 % (10.0-50.0); Mean Corpuscular Hemoglobin 31.6 pg (28.0-32.0); Mean Corpuscular Hgb Conc. 33.4 g/dL (32.0-36.0); Mean Corpuscular Volume 94.6 fL (80.0-100.0); Monocytes # (auto) 0.6 10 ^3/uL (0-1.3); Monocytes % (auto) 6.1 % (0.0-12.0); Neutrophils # (auto) 7.4 10 ^3/uL (1.6-8.6); Red Blood Cells 3.09 10^6/uL (4.0-5.20); Red Cell Distribution Width 16.2 % (11.8-14.3); White Blood Cell 9.6 10^3/uL (4.4-10.8)
[2022-06-13 05:26] LABS: BUN/Creatinine Ratio 7.5; Calcium 8.4 mg/dL (8.5-10.1); Potassium 3.9 mmol/L (3.5-5.1)
[2022-06-13] MEDS: SODIUM CHLORIDE 0.9% 1,000 ML IV SCH (05:29)
[2022-06-13 08:00] VITALS: BP 100/70
[2022-06-13 09:00] VITALS: BP 91/68
[2022-06-13] MEDS: CLOPIDOGREL BISULFATE 75 MG TAB PO SCH (09:43)
[2022-06-13] MEDS: ENOXAPARIN SOD 40 MG/0.4 ML SYRINGE SC SCH (09:43)
[2022-06-13] MEDS ORDERED: CLOP75TA70 PO (12:38)
[2022-06-13] MEDS ORDERED: ATOR20TA50 PO (12:38)
[2022-06-13 13:00] VITALS: BP 140/49
[2022-06-13 14:09] VITALS: BP 120/70
[2022-06-13 16:57] VITALS: BP 148/47
== END 2022-06-13 18:00 | disposition home health service (06) | DRG 65 ==
LOC: ER 20:26 → OVERFLOW 06-09 03:11 → WEST WING 06-09 21:05 → TELE-WESTW 06-11 20:01
PROVIDERS: ADMIT Hospitalist; ATTEND Internal Medicine Pulmonary Disease
PROC: B24BZZ4 Ultrasonography of Heart with Aorta, Transesophageal (ICD-10-PCS; principal; 2022-06-12)
DX: I63.511 Cerebral infarction due to unspecified occlusion or stenosis of right middle cerebral artery (principal); C95.10 Chronic leukemia of unspecified cell type not having achieved remission; E44.0 Moderate protein-calorie malnutrition; N39.0 Urinary tract infection, site not specified; I69.351 Hemiplegia and hemiparesis following cerebral infarction affecting right dominant side; E87.6 Hypokalemia; M79.642 Pain in left hand; Z20.822 Contact with and (suspected) exposure to COVID-19; I10 Essential (primary) hypertension; Z68.21 Body mass index [BMI] 21.0-21.9, adult; Z88.8 Allergy status to other drugs, medicaments and biological substances; Z87.440 Personal history of urinary (tract) infections; Z79.899 Other long term (current) drug therapy; Z79.02 Long term (current) use of antithrombotics/antiplatelets; Z82.49 Family history of ischemic heart disease and other diseases of the circulatory system; Z82.5 Family history of asthma and other chronic lower respiratory diseases; Z83.3 Family history of diabetes mellitus; Z90.49 Acquired absence of other specified parts of digestive tract
CPT/HCPCS: 36415; 70450; 70551; 71045; 72141; 80048; 80053; 81001; 84484; 85025; 85610; 85730; 87081; 92610; 93005; 93312; 93886; 96365; 96375; 97110; 97116; 97163; 97530; 99152; G0378; J0696; J2250; J2405

== ENCOUNTER 2022-06-25 14:38 | Inpatient (IN) | payer MEDICARE, MEDICAID ==
[~2022-06-25] VITALS: Ht 165.1 cm; Wt 91.3 kg
[~2022-06-25 14:38] MED LIST changes: +ATOR20TA50 PO; +CLOP75TA70 PO; -LEVO500T31 PO; -PRED20TA2 PO
[2022-06-25 15:33] LABS: Eosinophils # (auto) 0.3 10 ^3/uL (0-0.8); Hemoglobin 8.3 g/dL (12.2-16.2); Lymphocytes # (auto) 0.9 10 ^3/uL (0.4-5.4); Lymphocytes % (auto) 4.3 % (10.0-50.0); Mean Corpuscular Hemoglobin 30.6 pg (28.0-32.0); Mean Corpuscular Volume 92.1 fL (80.0-100.0); Monocytes # (auto) 1.2 10 ^3/uL (0-1.3); Red Cell Distribution Width 15.8 % (11.8-14.3)
[2022-06-25 15:36] LABS: Basophils # (auto) 0 10 ^3/uL (0-0.2); Basophils % (auto) 0.1 % (0.0-2.0); Eosinophils % (auto) 1.4 % (0.0-7.0); Hematocrit 24.9 % (36.0-46.0); Mean Corpuscular Hgb Conc. 33.2 g/dL (32.0-36.0); Monocytes % (auto) 5.5 % (0.0-12.0); Neutrophils # (auto) 18.6 10 ^3/uL (1.6-8.6); Neutrophils % (auto) 88.7 % (37.0-80.0)
[2022-06-25 15:49] LABS: Albumin 2.2 g/dL (3.4-5.0); INR 1.2 (0.9-1.15); Partial Thromboplastin Time 37.3 sec (24.6-33.4); Potassium 3.1 mmol/L (3.5-5.1)
[2022-06-25 15:52] LABS: BUN/Creatinine Ratio 8.5
[2022-06-25 15:54] LABS: Bilirubin, Total 0.2 mg/dL (0.2-1.0)
[2022-06-25] MEDS ORDERED: SODIUM CHLORIDE 0.9% 1,000 ML IV ONE ×2 (18:00→22:30)
[2022-06-25] MEDS ORDERED: cefTRIAXone 1GM/50ML D5W 50 ML IV ONE (18:00)
[2022-06-25 19:37] LABS: Lactic Acid w/Reflex 4.6 mmol/L (0.4-2.0)
[2022-06-25] MEDS ORDERED: MORPHINE SULFATE INJ 2 MG/ml SYRG IV PRN (22:30)
[2022-06-25] MEDS ORDERED: NITROGLYCERIN 0.4 MG SL TAB SL PRN (22:30)
[2022-06-25] MEDS ORDERED: levoFLOXacin 500MG 100 ML IV SCH (23:12)
[2022-06-25] MEDS: MAGNESIUM SULFATE 1GM/100ML 100 ML IV SCH (23:13)
[2022-06-25 23:18] LABS: Cholesterol 83 mg/dL (< 200); Triglycerides 145 mg/dL (< 150)
[2022-06-25 23:21] LABS: HDL Cholesterol 28 mg/dL (40-59); LDL Cholesterol 35 mg/dL (< 100)
[2022-06-26] VITALS (7 sets, daily range): BP systolic 109–167; BP diastolic 38–55
[2022-06-26] MEDS: PIPERACILLIN-TAZO 4.5GM 100 ML IV SCH ×2 (00:01→06:03)
[2022-06-26] MEDS: HYDROcodone-ACET 5/325MG TAB PO PRN ×4 (00:01→20:51)
[2022-06-26] MEDS: IPRATROPIUM BROM 0.5 MG/2.5ML INH SOL NEB PRN (00:35)
[2022-06-26] MEDS: ALBUTEROL SULF 2.5 MG/0.5ML(0.5%) NEB SOLN HHN PRN (00:35)
[2022-06-26 00:51] LABS: % Iron Saturation 8.3 % (15-50)
[2022-06-26] MEDS ORDERED: PNEUMOCOCCAL VACC POLYS 25 MCG/0.5 ML VIAL IM ONE (03:15)
[2022-06-26] MEDS: SODIUM CHLORIDE 0.9% 1,000 ML IV SCH ×2 (03:20→12:47)
[2022-06-26 06:37] LABS: Basophils # (auto) 0 10 ^3/uL (0-0.2); Basophils % (auto) 0.1 % (0.0-2.0); Eosinophils # (auto) 0.1 10 ^3/uL (0-0.8); Eosinophils % (auto) 0.3 % (0.0-7.0); Hematocrit 22.2 % (36.0-46.0); Hemoglobin 7.6 g/dL (12.2-16.2); Lymphocytes # (auto) 1.1 10 ^3/uL (0.4-5.4); Mean Corpuscular Hemoglobin 31.3 pg (28.0-32.0); Mean Corpuscular Hgb Conc. 34.1 g/dL (32.0-36.0); Mean Corpuscular Volume 91.6 fL (80.0-100.0); Monocytes # (auto) 1.3 10 ^3/uL (0-1.3); Neutrophils % (auto) 88.6 % (37.0-80.0); Red Blood Cells 2.42 10^6/uL (4.0-5.20); Red Cell Distribution Width 15.6 % (11.8-14.3); White Blood Cell 21.5 10^3/uL (4.4-10.8)
[2022-06-26 06:48] LABS: BUN/Creatinine Ratio 10.8; Calcium 7.5 mg/dL (8.5-10.1); Potassium 3.1 mmol/L (3.5-5.1)
[2022-06-26] MEDS: MAGNESIUM SULFATE 1GM/100ML 100 ML IV SCH (07:07)
[2022-06-26] MEDS ORDERED: VANCOMYCIN PER PHARMACY 0 MG IV SCH (10:30)
[2022-06-26] MEDS ORDERED: VANCOMYCIN 1GM/250ML 250 ML IV ONE (10:45)
[2022-06-26] MEDS ORDERED: FERROUS SULFATE 325mg EC TAB PO ONE (11:45)
[2022-06-26] MEDS: CEFEPIME 1GM/ 50ML 50 ML IV SCH ×2 (13:49→21:54)
[2022-06-26] MEDS: FERROUS SULFATE 325mg EC TAB PO SCH (18:19)
[2022-06-26 18:37] LABS: Urine Bacteria NONE SEEN /hpf (None Seen); Urine Blood Negative /uL (Negative); Urine Specific Gravity 1.011 (1.001-1.035); Urine WBC 1 /hpf (0 - 5)
[2022-06-26] MEDS ORDERED: POTASSIUM CHL 20 Meq TABLET PO ONE (19:15)
[2022-06-26] MEDS: ATORVASTATIN 20 MG TAB PO SCH (21:55)
[2022-06-26] MEDS ORDERED: ATORVASTATIN 20 MG TAB PO SCH (22:00)
[2022-06-27] MEDS: VANCOMYCIN 1GM/250ML 250 ML IV SCH ×2 (00:59→13:18)
[2022-06-27] MEDS: HYDROcodone-ACET 5/325MG TAB PO PRN ×4 (01:07→22:12)
[2022-06-27] MEDS: SODIUM CHLORIDE 0.9% 1,000 ML IV SCH ×3 (03:06→22:25)
[2022-06-27 05:00] VITALS: BP 119/46
[2022-06-27] MEDS: CEFEPIME 1GM/ 50ML 50 ML IV SCH (05:49)
[2022-06-27 06:26] LABS: Albumin 1.9 g/dL (3.4-5.0); Calcium 7.7 mg/dL (8.5-10.1); Potassium 3.7 mmol/L (3.5-5.1)
[2022-06-27 06:29] LABS: Phosphorus 1.6 mg/dL (2.5-4.90)
[2022-06-27 09:00] VITALS: BP 138/54
[2022-06-27 09:26] LABS: Hemoglobin 7.8 g/dL (12.2-16.2)
[2022-06-27 09:29] LABS: Hematocrit 23.7 % (36.0-46.0); Mean Corpuscular Hemoglobin 30.5 pg (28.0-32.0); Mean Corpuscular Hgb Conc. 33.1 g/dL (32.0-36.0); Red Blood Cells 2.57 10^6/uL (4.0-5.20); Red Cell Distribution Width 15.9 % (11.8-14.3); White Blood Cell 21.4 10^3/uL (4.4-10.8)
[2022-06-27 09:40] LABS: Basophils % (manual) 0 (0.0-2.0); Blast Cells 0; Eosinophils % (manual) 0 (0-7); Myelocytes % 0; Promyelocytes % 0; Reactive Lymphocytes 0
[2022-06-27] MEDS: Pro-Stat SF 30ml Vanilla GT SCH ×2 (10:00→22:03)
[2022-06-27] MEDS ORDERED: guaiFENesin-DM 100/10mg/5ml SYR PO ONE (10:00)
[2022-06-27] MEDS: FERROUS SULFATE 325mg EC TAB PO SCH ×2 (10:30→17:23)
[2022-06-27] MEDS: NEUTRA-PHOS TABLET PO SCH ×2 (11:44→17:22)
[2022-06-27] MEDS: Ensure HIGH Protein Vanilla 8oz Bottle PO SCH ×3 (11:45→22:03)
[2022-06-27 12:06] LABS: Band Neutrophils % (manual) 2; Lymphocytes % (manual) 6 (10.0-50.0); Metamyelocytes % 1; Monocytes % (manual) 2 (0-12)
[2022-06-27 13:00] VITALS: BP 134/51
[2022-06-27 17:00] VITALS: BP 113/44
[2022-06-27] MEDS: guaiFENesin-DM 100/10mg/5ml SYR PO PRN ×2 (17:43→22:36)
[2022-06-27 22:00] VITALS: BP 123/46
[2022-06-27] MEDS: ATORVASTATIN 20 MG TAB PO SCH (22:00)
[2022-06-27] MEDS: LINEZOLID 600MG TABLET PO SCH (22:00)
[2022-06-28 05:11] VITALS: BP 144/48
[2022-06-28] MEDS: guaiFENesin-DM 100/10mg/5ml SYR PO PRN ×5 (05:15→21:37)
[2022-06-28] MEDS: Ensure HIGH Protein Vanilla 8oz Bottle PO SCH ×4 (06:00→21:41)
[2022-06-28 06:17] LABS: Basophils # (auto) 0.1 10 ^3/uL (0-0.2); Eosinophils # (auto) 0.3 10 ^3/uL (0-0.8); Monocytes # (auto) 1.2 10 ^3/uL (0-1.3); Neutrophils # (auto) 20.4 10 ^3/uL (1.6-8.6)
[2022-06-28 06:20] LABS: Basophils % (auto) 0.3 % (0.0-2.0); Eosinophils % (auto) 1.1 % (0.0-7.0); Lymphocytes # (auto) 0.9 10 ^3/uL (0.4-5.4); Mean Corpuscular Hemoglobin 30.5 pg (28.0-32.0); Mean Corpuscular Hgb Conc. 33.3 g/dL (32.0-36.0); Mean Corpuscular Volume 91.7 fL (80.0-100.0); Monocytes % (auto) 5.3 % (0.0-12.0); Neutrophils % (auto) 89.3 % (37.0-80.0); Red Blood Cells 2.61 10^6/uL (4.0-5.20); Red Cell Distribution Width 16.2 % (11.8-14.3); White Blood Cell 22.9 10^3/uL (4.4-10.8)
[2022-06-28] MEDS: FERROUS SULFATE 325mg EC TAB PO SCH ×2 (08:18→18:43)
[2022-06-28] MEDS: NEUTRA-PHOS TABLET PO SCH ×3 (08:18→18:43)
[2022-06-28 09:00] VITALS: BP 122/41
[2022-06-28] MEDS: LINEZOLID 600MG TABLET PO SCH ×2 (10:03→21:37)
[2022-06-28] MEDS: HYDROcodone-ACET 5/325MG TAB PO PRN ×2 (11:44→18:48)
[2022-06-28] MEDS ORDERED: ONDANSETRON HCL 4 MG/2 ML VIAL IV PRN (12:15)
[2022-06-28 12:52] VITALS: BP 135/48
[2022-06-28] MEDS: Pro-Stat SF 30ml Vanilla GT SCH ×2 (14:16→21:42)
[2022-06-28] MEDS: ALBUTEROL SULF 2.5 MG/0.5ML(0.5%) NEB SOLN HHN PRN (16:28)
[2022-06-28] MEDS: IPRATROPIUM BROM 0.5 MG/2.5ML INH SOL NEB PRN (16:28)
[2022-06-28 17:00] VITALS: BP 112/30
[2022-06-28 19:23] VITALS: BP 112/30
[2022-06-28] MEDS: ATORVASTATIN 20 MG TAB PO SCH (21:37)
[2022-06-28 22:00] VITALS: BP 113/44
[2022-06-29 05:54] VITALS: BP 134/44
[2022-06-29 05:57] VITALS: BP 134/44
[2022-06-29] MEDS: Ensure HIGH Protein Vanilla 8oz Bottle PO SCH ×3 (08:00→20:00)
[2022-06-29 09:00] VITALS: BP 114/41
[2022-06-29] MEDS: NEUTRA-PHOS TABLET PO SCH ×3 (09:37→17:12)
[2022-06-29] MEDS: guaiFENesin-DM 100/10mg/5ml SYR PO PRN ×3 (09:37→21:37)
[2022-06-29] MEDS: LINEZOLID 600MG TABLET PO SCH ×2 (09:37→21:36)
[2022-06-29] MEDS: FERROUS SULFATE 325mg EC TAB PO SCH ×2 (09:37→17:12)
[2022-06-29] MEDS: HYDROcodone-ACET 5/325MG TAB PO PRN (09:40)
[2022-06-29] MEDS: Pro-Stat SF 30ml Vanilla GT SCH ×2 (09:41→21:19)
[2022-06-29 13:00] VITALS: BP 118/36
[2022-06-29 17:00] VITALS: BP 127/38
[2022-06-29] MEDS: ATORVASTATIN 20 MG TAB PO SCH (21:36)
[2022-06-29 22:00] VITALS: BP 119/45
[2022-06-30] MEDS: Ensure HIGH Protein Vanilla 8oz Bottle PO SCH ×4 (02:00→22:31)
[2022-06-30] MEDS: HYDROcodone-ACET 5/325MG TAB PO PRN ×3 (04:07→22:33)
[2022-06-30] MEDS: guaiFENesin-DM 100/10mg/5ml SYR PO PRN (04:25)
[2022-06-30 05:00] VITALS: BP 116/38
[2022-06-30] MEDS: FERROUS SULFATE 325mg EC TAB PO SCH ×2 (08:05→18:09)
[2022-06-30] MEDS: NEUTRA-PHOS TABLET PO SCH (08:06)
[2022-06-30 08:56] VITALS: BP 125/50
[2022-06-30] MEDS: LINEZOLID 600MG TABLET PO SCH ×2 (09:32→22:32)
[2022-06-30] MEDS: Pro-Stat SF 30ml Vanilla GT SCH ×2 (09:32→22:00)
[2022-06-30] MEDS ORDERED: LOPERAMIDE HCL 2 MG CAP/TAB PO ONE (12:00)
[2022-06-30 12:41] VITALS: BP 143/50
[2022-06-30 16:52] VITALS: BP 145/45
[2022-06-30] MEDS ORDERED: LOPERAMIDE HCL 2 MG CAP/TAB PO PRN (18:00)
[2022-06-30 22:00] VITALS: BP 123/44
[2022-06-30] MEDS: ATORVASTATIN 20 MG TAB PO SCH (22:32)
[2022-07-01] MEDS: Ensure HIGH Protein Vanilla 8oz Bottle PO SCH ×3 (02:00→12:37)
[2022-07-01 05:00] VITALS: BP 104/46
[2022-07-01] MEDS: FERROUS SULFATE 325mg EC TAB PO SCH (08:16)
[2022-07-01] MEDS: Pro-Stat SF 30ml Vanilla GT SCH (08:17)
[2022-07-01] MEDS: LINEZOLID 600MG TABLET PO SCH (08:17)
[2022-07-01] MEDS: HYDROcodone-ACET 5/325MG TAB PO PRN (08:17)
[2022-07-01] MEDS: guaiFENesin-DM 100/10mg/5ml SYR PO PRN (08:17)
[2022-07-01 09:00] VITALS: BP 114/50
[2022-07-01] MEDS ORDERED: LINE1TAB6 PO (09:40)
[2022-07-01 12:46] VITALS: BP 120/47
[2022-07-01 13:00] VITALS: BP 120/47
== END 2022-07-01 16:05 | disposition home health service (06) | DRG 871 ==
LOC: ER 14:38 → TELE 22:49 → TELE-CENTR 23:55 → CENTRAL 06-26 00:42
PROVIDERS: ADMIT Nurse Practitioner Family; ATTEND Family Medicine
DX: A41.02 Sepsis due to Methicillin resistant Staphylococcus aureus (principal); J15.212 Pneumonia due to Methicillin resistant Staphylococcus aureus; S72.001A Fracture of unspecified part of neck of right femur, initial encounter for closed fracture; C91.10 Chronic lymphocytic leukemia of B-cell type not having achieved remission; J47.1 Bronchiectasis with (acute) exacerbation; R04.2 Hemoptysis; D63.8 Anemia in other chronic diseases classified elsewhere; E11.9 Type 2 diabetes mellitus without complications; E83.42 Hypomagnesemia; R79.1 Abnormal coagulation profile; N93.8 Other specified abnormal uterine and vaginal bleeding; D50.9 Iron deficiency anemia, unspecified; D69.6 Thrombocytopenia, unspecified; F41.9 Anxiety disorder, unspecified; I10 Essential (primary) hypertension; Z20.822 Contact with and (suspected) exposure to COVID-19; D75.839 Thrombocytosis, unspecified; R79.89 Other specified abnormal findings of blood chemistry; R59.0 Localized enlarged lymph nodes; W01.0XXA Fall on same level from slipping, tripping and stumbling without subsequent striking against object, initial encounter; Z90.49 Acquired absence of other specified parts of digestive tract; Z83.3 Family history of diabetes mellitus; Z86.16 Personal history of COVID-19; Z87.01 Personal history of pneumonia (recurrent); Z87.891 Personal history of nicotine dependence; Z90.710 Acquired absence of both cervix and uterus; Z82.5 Family history of asthma and other chronic lower respiratory diseases; Z79.899 Other long term (current) drug therapy; Z79.02 Long term (current) use of antithrombotics/antiplatelets; Z82.49 Family history of ischemic heart disease and other diseases of the circulatory system; Z86.73 Personal history of transient ischemic attack (TIA), and cerebral infarction without residual deficits; Y93.89 Activity, other specified; Y92.89 Other specified places as the place of occurrence of the external cause; Y99.8 Other external cause status
CPT/HCPCS: 36415; 36600; 70450; 71045; 73502; 73700; 76604; 76856; 80048; 80053; 80061; 80069; 81001; 82805; 83540; 83550; 83605; 83735; 83880; 84484; 85007; 85025; 85027; 85610; 85730; 86850; 86900; 86901; 87040; 87070; 87077; 87086; 87186; 87205; 93005; 93306; 94640; 96361; 96365; 96367; 97110; 97116; 97163; 97530; 99291; G0378; J0696; J1956; J2405; J2543